=== PATIENT | male | born 1940 | race Caucasian/White ===

== ENCOUNTER 2019-10-15 10:16 | Inpatient (IN) | payer MEDICARE, OTHER ==
[~2019-10-15] VITALS: Ht 188 cm; Wt 117.5 kg
[~2019-10-15 10:16] MED LIST: UNOBMED
[2019-10-15] MEDS ORDERED: LISINOPRIL5 MG ORAL (10:27)
[2019-10-15] MEDS ORDERED: JANUVIA50 MG ORAL (10:27)
[2019-10-15] MEDS ORDERED: GLUCOTROL10 MG ORAL ×2 (10:27→10:41)
[2019-10-15] MEDS ORDERED: FUROSEMIDE40 MG ORAL (10:27)
[2019-10-15 10:30] VITALS: BP 111/63
[2019-10-15] MEDS ORDERED: SILTUSSIN DM C118 ML PO (10:41)
[2019-10-15] MEDS ORDERED: GABAPENTIN100 MG ORAL (10:41)
[2019-10-15] MEDS ORDERED: ALBUTEROL SULF8.5 G1 INH (10:41)
[2019-10-15] MEDS ORDERED: FLOMAX0.4 MG ORAL (10:41)
[2019-10-15] MEDS ORDERED: METOPROLOL TART50 MG ORAL (10:41)
[2019-10-15] MEDS ORDERED: PANTOPRAZOLE SO40 MG ORAL (10:41)
[2019-10-15] MEDS ORDERED: PRADAXA110 MG PO (10:41)
[2019-10-15] MEDS ORDERED: SILVER SULFADIA50 GM TP (10:41)
[2019-10-15] MEDS ORDERED: VIBRAMYCIN100 MG ORAL (10:46)
[2019-10-15] MEDS ORDERED: ATORVASTATIN CA10 MG ORAL (10:46)
[2019-10-15] MEDS ORDERED: FUROSEMIDE20 M1 ORAL (10:46)
[2019-10-15] MEDS ORDERED: DIGOXIN250 MCG ORAL (10:46)
[2019-10-15] MEDS ORDERED: AMIODARONE HCL200 MG ORAL (10:46)
[2019-10-15] MEDS ORDERED: ABILIFY10 MG ORAL (10:46)
[2019-10-15 11:13] LABS: BASOPHILS % (AUTO) 0.8 % (0.0-2.0); EOSINOPHILS % (AUTO) 3.7 % (0.0-3.0); HEMATOCRIT 35.8 % (42.0-52.0); HEMOGLOBIN 11.6 G/DL (14.2-18.0); LYMPHOCYTES % (AUTO) 11.8 % (20.0-45.0); MEAN CORPUSCULAR VOLUME 90 FL (80-99); MONOCYTES % (AUTO) 11.2 % (1.0-10.0); NEUTROPHILS % (AUTO) 72.5 % (45.0-75.0); PLATELET COUNT 122 K/UL (150-450); RED BLOOD COUNT 3.97 M/UL (4.70-6.10); RED CELL DISTRIBUTION WIDTH 14.1 % (11.6-14.8); WHITE BLOOD COUNT 10.2 K/UL (4.8-10.8)
--- NOTE | 2019-10-15 11:20 | Emergency Room Report ---
History of Present Illness General Chief Complaint: Generalized Weakness Source: Medical Record, EMS Present Illness HPI Patient presents from nursing facility with reports of general weakness patient himself appears lethargic Patient was noted from nursing facility to have multiple falls over the past 24 hours There was no reports of vomiting or diarrhea however there was question of possible cough History of present illness is limited as the patient himself was not able to provide appropriate input unknown regarding fever patient is from a boarding care /Nursing facility raising concern for covid-19 Allergies: Coded Allergies: No Known Allergies (Unverified , 08/25/12) COVID-19 Screening Contact w/high risk pt: No Recent Travel to affected area: No Experienced COVID-19 symptoms?: Yes COVID-19 symptoms experienced: Cough Patient History Limited by: medical condition Past Medical History: see triage record Reviewed Nursing Documentation: PMH: Agreed; PSxH: Agreed Nursing Documentation-PMH Hx Cardiac Problems: No - A fib Hx COPD: Yes Hx Cancer: No Hx Gastrointestinal Problems: No Hx Neurological Problems: No Review of Systems All Other Systems: negative except mentioned in HPI Physical Exam Vital Signs Date Time Temp Pulse Resp B/P (MAP) Pulse Ox O2 Delivery O2 Flow Rate FiO2 10/15/19 10:18 98.2 92 18 156/82 (106) 91 Room Air Sp02 EP Interpretation: reviewed, abnormal - Low interpretation General Appearance: mild distress - Appears lethargic Head: normocephalic, atraumatic Eyes: bilateral eye PERRL, bilateral eye EOMI ENT: EOM grossly intact, normal pharynx Neck: supple Respiratory: crackles - Lower lobes and appears mildly tachypneic Cardiovascular #1: irregularly irregular Gastrointestinal: non tender, soft Musculoskeletal: other - Patient does not move extremities to command he does move both upper extremities without focal deficit Neurologic: responsive - To physical stimuli however appears sluggish to respond Skin: other - Abrasions over the mid forehead edema bilaterally ecchymosis on both arms Lymphatic: no adenopathy Procedures Critical Care Time Critical Care Time 50 minutes for multiple re-evaluations critical presentation concerning for respiratory decompensation and possible not including any procedural time Medical Decision Making Diagnostic Impression: Primary Impression: A-fib Additional Impression: Suspected COVID-19 virus infection ER Course Patient is a fairly complex patient with multiple differential to consideration including but not limited to cardiac cardiopulmonary and vascular emergencies Patient has history of atrial fibrillation appears to be on multiple medications Heart rate is mildly bradycardic no obvious ST elevations are noted Patient's x-ray does show bilateral patchy markings as well In the current environment there is strong consideration for Covid-19 infectious process Patient is placed on oxygenation and admitted for further care Labs Test 10/15/19 10:48 10/15/19 13:50 10/15/19 15:20 10/15/19 20:50 White Blood Count 10.2 K/UL (4.8-10.8) Red Blood Count 3.97 M/UL (4.70-6.10) Hemoglobin 11.6 G/DL (14.2-18.0) Hematocrit 35.8 % (42.0-52.0) Mean Corpuscular Volume 90 FL (80-99) Mean Corpuscular Hemoglobin 29.2 PG (27.0-31.0) Mean Corpuscular Hemoglobin Concent 32.4 G/DL (32.0-36.0) Red Cell Distribution Width 14.1 % (11.6-14.8) Platelet Count 122 K/UL (150-450) Mean Platelet Volume 7.3 FL (6.5-10.1) Neutrophils (%) (Auto) 72.5 % (45.0-75.0) Lymphocytes (%) (Auto) 11.8 % (20.0-45.0) Monocytes (%) (Auto) 11.2 % (1.0-10.0) Eosinophils (%) (Auto) 3.7 % (0.0-3.0) Basophils (%) (Auto) 0.8 % (0.0-2.0) Sodium Level 149 MMOL/L (136-145) Potassium Level 4.6 MMOL/L (3.5-5.1) Chloride Level 113 MMOL/L (98-107) Carbon Dioxide Level 27 MMOL/L (21-32) Anion Gap 9 mmol/L (5-15) Blood Urea Nitrogen 53 mg/dL (7-18) Creatinine 2.3 MG/DL (0.55-1.30) Estimat Glomerular Filtration Rate 27.5 mL/min (>60) Glucose Level 74 MG/DL (74-106) Lactic Acid Level 1.20 mmol/L (0.4-2.0) Calcium Level 8.8 MG/DL (8.5-10.1) Total Bilirubin 0.5 MG/DL (0.2-1.0) Aspartate Amino Transf (AST/SGOT) 37 U/L (15-37) Alanine Aminotransferase (ALT/SGPT) 36 U/L (12-78) Alkaline Phosphatase 70 U/L (46-116) Total Creatine Kinase 339 U/L (26-308) Creatine Kinase MB 2.9 NG/ML (0.0-3.6) Creatine Kinase MB Relative Index 0.8 Troponin I 0.029 ng/mL (0.000-0.056) 0.029 ng/mL (0.000-0.056) Pro-B-Type Natriuretic Peptide 1544 pg/mL (0-125) Total Protein 6.9 G/DL (6.4-8.2) Albumin 3.1 G/DL (3.4-5.0) Globulin 3.8 g/dL Albumin/Globulin Ratio 0.8 (1.0-2.7) Lipase 82 U/L (73-393) Digoxin Level 3.2 NG/ML (0.5-2.0) Urine Color Pale yellow Urine Appearance Clear Urine pH 6 (4.5-8.0) Urine Specific [place] 1.010 (1.005-1.035) Urine Protein Negative (NEGATIVE) Urine Glucose (UA) Negative (NEGATIVE) Urine Ketones Negative (NEGATIVE) Urine Blood 4+ (NEGATIVE) Urine Nitrite Negative (NEGATIVE) Urine Bilirubin Negative (NEGATIVE) Urine Urobilinogen Normal MG/DL (0.0-1.0) Urine Leukocyte Esterase Negative (NEGATIVE) Urine RBC 10-15 /HPF (0 - 0) Urine WBC 0-2 /HPF (0 - 0) Urine Squamous Epithelial Cells Occasional /LPF Urine Bacteria None /HPF (NONE) Test 10/15/19 20:55 10/15/19 21:00 10/16/19 06:20 10/17/19 06:30 Sodium Level 154 MMOL/L (136-145) Potassium Level 4.7 MMOL/L (3.5-5.1) Chloride Level 115 MMOL/L (98-107) Carbon Dioxide Level 28 MMOL/L (21-32) Anion Gap 11 mmol/L (5-15) Blood Urea Nitrogen 51 mg/dL (7-18) Creatinine 2.3 MG/DL (0.55-1.30) Estimat Glomerular Filtration Rate 27.5 mL/min (>60) Glucose Level 26 MG/DL (74-106) Calcium Level 8.4 MG/DL (8.5-10.1) Triglycerides Level 79 MG/DL (30-150) Cholesterol Level 109 MG/DL (< 200) LDL Cholesterol 52 mg/dL (<100) HDL Cholesterol 44 MG/DL (40-60) Cholesterol/HDL Ratio 2.5 (3.3-4.4) Thyroid Stimulating Hormone (TSH) 0.772 uiU/mL (0.358-3.740) White Blood Count 9.3 K/UL (4.8-10.8) Red Blood Count 4.10 M/UL (4.70-6.10) Hemoglobin 11.9 G/DL (14.2-18.0) Hematocrit 39.7 % (42.0-52.0) Mean Corpuscular Volume 97 FL (80-99) Mean Corpuscular Hemoglobin 29.0 PG (27.0-31.0) Mean Corpuscular Hemoglobin Concent 29.9 G/DL (32.0-36.0) Red Cell Distribution Width 15.4 % (11.6-14.8) Platelet Count 119 K/UL (150-450) Mean Platelet Volume 9.0 FL (6.5-10.1) Neutrophils (%) (Auto) 63.8 % (45.0-75.0) Lymphocytes (%) (Auto) 18.6 % (20.0-45.0) Monocytes (%) (Auto) 12.2 % (1.0-10.0) Eosinophils (%) (Auto) 4.5 % (0.0-3.0) Basophils (%) (Auto) 0.9 % (0.0-2.0) Digoxin Level 3.4 NG/ML (0.5-2.0) EKG Diagnostic Results Rate: bradycardiac Rhythm: other ST Segments: other - Irregularly irregular nonspecific ST changes Rhythm Strip Diag. Results EP Interpretation: yes Rate: 50 Rhythm: no PVC's, no ectopy, other - A. fib bradycardic Chest X-Ray Diagnostic Results Chest X-Ray Diagnostic Results : Chest X-Ray Ordered: Yes # of Views/Limited/Complete: 1 View Indication: Shortness of Breath EP Interpretation: Yes Interpretation: no pneumothorax, other - Bilateral patchy markings small effusion bilaterally Impression: Other - Bilateral patchy markings consider infiltrate mild effusion Electronically Signed by: Stephen Olivera DO Last Vital Signs Date Time Temp Pulse Resp B/P (MAP) Pulse Ox O2 Delivery O2 Flow Rate FiO2 10/15/19 10:30 96.5 57 15 111/63 96 Room Air Status: improved Disposition: ADMITTED INPATIENT Condition: Serious Stephen Olivera DO October 15, 2019 11:20
[2019-10-15 11:23] LABS: ANION GAP 9 mmol/L (5-15); BLOOD UREA NITROGEN 53 mg/dL (7-18); CALCIUM 8.8 MG/DL (8.5-10.1); CARBON DIOXIDE 27 MMOL/L (21-32); CHLORIDE 113 MMOL/L (98-107); CREATININE 2.3 MG/DL (0.55-1.30); POTASSIUM 4.6 MMOL/L (3.5-5.1); SODIUM 149 MMOL/L (136-145)
[2019-10-15] MEDS ORDERED: cefTRIAXone 1 GM in NS 55 ML IVPB ONE (11:30)
[2019-10-15] MEDS ORDERED: Azithromycin 500 MG in NS 275 ML IV ONE (11:30)
[2019-10-15 11:35] LABS: ALANINE AMINOTRANSFERASE 36 U/L (12-78); ALBUMIN 3.1 G/DL (3.4-5.0); ALBUMIN/GLOBULIN RATIO 0.8 (1.0-2.7); ALKALINE PHOSPHATASE 70 U/L (46-116); ASPARTATE AMINO TRANSFERASE 37 U/L (15-37); BILIRUBIN,TOTAL 0.5 MG/DL (0.2-1.0); CKMB 2.9 NG/ML (0.0-3.6); CREATINE KINASE 339 U/L (26-308)
[2019-10-15 11:51] VITALS: BP 110/62
--- NOTE | 2019-10-15 13:53 | Diagnostic Imaging Report ---
Indication: Cough Technique: One view of the chest Comparison: 08/25/2012 Findings: There are bilateral diffuse interstitial opacities. There is central bronchial wall thickening. No focal airspace consolidation. There is some atelectasis at the right lung base. The heart size is upper limits normal. The aorta is tortuous ectatic and calcified Impression: Mild bilateral diffuse interstitial prominence. This is nonspecific, could indicate interstitial infiltrates versus edema versus chronic and possibly senescent changes. Correlate with clinical findings
[2019-10-15 14:09] VITALS: BP 115/50
--- NOTE | 2019-10-15 14:12 | Diagnostic Imaging Report ---
Indications: Altered mental status Technique: Spiral acquisitions obtained through the brain. Angled axial and coronal 5 x 5 mm slices were reconstructed. Total dose length product 1098 mGycm. CTDI vol(s) 53 mGy. Dose reduction achieved using automated exposure control Comparison: 08/27/2012 brain MRI Findings: There is age-related enlargement of the ventricles and extra axial CSF spaces. There is periventricular deep white matter low-attenuation, consistent with chronic microvascular ischemic change. 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 No acute intracranial hemorrhage or edema. No mass effect nor midline shift. Otherwise normal calles-white differentiation. Intact calvarium. The mastoids are clear. There is ethmoid sinus disease noted. Impression: Chronic and age-related changes Negative for acute intracranial bleed or mass effect The CT scanner at [facility] is accredited by the [employer] and the scans are performed using protocols designed to limit radiation exposure to as low as reasonably achievable to attain images of sufficient resolution adequate for diagnostic evaluation.
--- NOTE | 2019-10-15 14:52 | Emergency Room Report ---
Physical Exam Vital Signs Date Time Temp Pulse Resp B/P (MAP) Pulse Ox O2 Delivery O2 Flow Rate FiO2 10/15/19 10:18 98.2 92 18 156/82 (106) 91 Room Air Medical Decision Making ER Course Patient seen by prior attending and admitted for pneumonia. Patient is on digoxin for atrial fibrillation. EKG demonstrates atrial fibrillation with slow ventricular response and a pathognomonic downsloping of the ST segment. Digoxin level is 3.2. We will give a fluid bolus and continue to monitor. I will hold on Digibind at this time. Last Vital Signs Date Time Temp Pulse Resp B/P (MAP) Pulse Ox O2 Delivery O2 Flow Rate FiO2 10/15/19 14:09 96.5 56 16 115/50 96 Room Air Referrals: NOT CHOSEN RAVI/,REFERRING (PCP) Angie Conner M.D. October 15, 2019 14:52
[2019-10-15 16:18] LABS: APPEARANCE,URINE CLEAR; BILIRUBIN, URINE NEGATIVE (NEGATIVE); COLOR,URINE PALE YELLOW; GLUCOSE, URINE (UA) NEGATIVE (NEGATIVE); KETONES,URINE NEGATIVE (NEGATIVE); LEUKOCYTE ESTERASE ,URINE NEGATIVE (NEGATIVE); NITRITE,URINE NEGATIVE (NEGATIVE); PH,URINE 6 (4.5-8.0); PROTEIN,URINE NEGATIVE (NEGATIVE); UROBILINOGEN,URINE NORMAL MG/DL (0.0-1.0)
[2019-10-15] MEDS ORDERED: ELIQUIS2.5 MG PO (17:46)
[2019-10-15] MEDS ORDERED: ACETAMINOPHEN325 M1 ORAL (17:46)
[2019-10-15] MEDS ORDERED: MOM30 ML ORAL (17:46)
[2019-10-15] MEDS ORDERED: Milk of Magnesia 30ml Ud ORAL PRN (20:15)
[2019-10-15 20:25] VITALS: BP 121/62
--- NOTE | 2019-10-15 20:29 | History and Physical Report ---
DATE OF ADMISSION: 10/15/2019 CHIEF COMPLAINT AND REASON FOR HOSPITALIZATION: Patient is an 79-year-old man admitted with recurrent falls, weakness, cough, atrial fibrillation. HISTORY OF PRESENT ILLNESS: The patient is well known to me. He has a history of schizophrenia, chronic congestive heart failure, atrial fibrillation, anticoagulation with Pradaxa, and recent treatment for cellulitis of the leg. He over the past 2 days has 6 falls and is not functioning well at the assisted living facility. He usually walks independently. 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 There is a concern for possible head injury although there has been no head trauma. He is on anticoagulants. He is a poor historian. ALLERGIES: None known. HABITS: He is a heavy smoker lifelong. No heavy alcohol or drugs. SOCIAL HISTORY: He lives in assisted living facility. MEDICATIONS: Furosemide 40 mg daily, glipizide 10 mg daily, Januvia 50 mg daily, lisinopril 5 mg daily. Furosemide has been changed to 40 mg twice a day a few weeks ago. Metoprolol tartrate 50 mg every day, Protonix 40 mg daily, tamsulosin 0.4 mg at bedtime, gabapentin 100 mg b.i.d., glipizide 20 mg before breakfast and 10 mg in the afternoon, Pradaxa 75 mg b.i.d., albuterol inhaler p.r.n., Robitussin p.r.n., Silvadene ointment to the leg daily, doxycycline 100 mg b.i.d., amiodarone 200 mg daily, aripiprazole, which is Abilify 10 mg daily, atorvastatin 10 mg at bedtime, digoxin 0.25 mg daily. SURGERIES: None. SYSTEM REVIEW: HEAD, EYES, EARS, NOSE, AND THROAT: Vision and hearing is good. ENDOCRINE: Diabetes adult onset. He is not checking his sugars. No thyroid disease. PULMONARY: History of COPD and intermittent bronchospasm. CARDIAC: History of atrial fibrillation. History of CHF with low ejection fraction in the past, which improved on subsequent echo. GASTROINTESTINAL: No nausea, vomiting, or abdominal pain. GENITOURINARY: He has intermittent incontinence and neurogenic bladder and BPH. NEUROLOGIC: No prior history of CVA or seizures. 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 PHYSICAL EXAMINATION: GENERAL: The patient is an alert man, lying in bed, seen in the emergency room. VITAL SIGNS: Blood pressure 96.5, pulse 54, respirations 16, blood pressure 110/62, pulse ox 96. HEAD, EYES, EARS, NOSE, AND THROAT: Sclerae are nonicteric. Ocular motions intact in all directions. Oral mucosa slightly dry. NECK: No adenopathy. LUNGS: Clear. Distant breath sounds. HEART: Rhythm is atrial fibrillation. I hear no murmur. ABDOMEN: Obese and soft without organomegaly or masses. EXTREMITIES: Trace to 1+ edema. There is a dressing on his leg from treatment of his cellulitis and this will be examined at a later time. NEUROLOGIC: He is alert and responsive. Ocular motions intact in all directions. Smile symmetric. He moves all extremities. IMAGING: Pending. LABORATORY DATA: So far, white count 10.2, hemoglobin 11.6. Sodium 149, potassium 4.6, BUN 53, creatinine 2.3, glucose 74. Total CK 339. Troponin 0.029. BNP 1544. Albumin 3.1. Further data pending. IMPRESSION: 1. Recurrent falls, likely a combination of parkinsonian affective medications, possible orthostatic hypotension, possible new [employer] disease. CT pending. 2. Atrial fibrillation. an EKG. Has slow ventricular rate and this may contribute to falls and need to be monitored for bradyarrhythmia, so hold digoxin at this time and get a cardiology consultation. 3. Chronic congestive heart failure. Prior low ejection fraction. Echo pending. 4. Adult-onset diabetes. 5. Schizophrenia. 6. Neurogenic bladder. 7. COPD. PLAN: Further imaging and studies are pending. We will put the patient on telemetry. Monitor his rhythm. Watch closely in view of his comorbidities. Noel Weldon M.D. DR: MERT JOB#: [id number] CC:
[2019-10-15 21:00] VITALS: BP 138/65
[2019-10-15] MEDS: Eliquis 2.5mg tablet ORAL SCH (21:00)
[2019-10-15] MEDS: NovoLOG Insulin Flexpen SUBQ SCH (21:00)
[2019-10-15] MEDS: Albuterol 90mcg Inhaler 8gm INH SCH (21:00)
[2019-10-15] MEDS: Doxycycline Monohydrate 100mg ORAL SCH (21:13)
[2019-10-15 21:14] LABS: BASOPHILS % (AUTO) 0.9 % (0.0-2.0); EOSINOPHILS % (AUTO) 4.5 % (0.0-3.0); HEMATOCRIT 39.7 % (42.0-52.0); HEMOGLOBIN 11.9 G/DL (14.2-18.0); LYMPHOCYTES % (AUTO) 18.6 % (20.0-45.0); MEAN CORPUSCULAR VOLUME 97 FL (80-99); MONOCYTES % (AUTO) 12.2 % (1.0-10.0); NEUTROPHILS % (AUTO) 63.8 % (45.0-75.0); PLATELET COUNT 119 K/UL (150-450); RED CELL DISTRIBUTION WIDTH 15.4 % (11.6-14.8); WHITE BLOOD COUNT 9.3 K/UL (4.8-10.8)
[2019-10-15 21:36] LABS: ANION GAP 11 mmol/L (5-15); BLOOD UREA NITROGEN 51 mg/dL (7-18); CALCIUM 8.4 MG/DL (8.5-10.1); CARBON DIOXIDE 28 MMOL/L (21-32); CHLORIDE 115 MMOL/L (98-107); CHOLESTEROL 109 MG/DL (< 200); CREATININE 2.3 MG/DL (0.55-1.30); HDL CHOLESTEROL 44 MG/DL (40-60); POTASSIUM 4.7 MMOL/L (3.5-5.1); SODIUM 154 MMOL/L (136-145); TRIGLYCERIDES 79 MG/DL (30-150)
[2019-10-16] VITALS: BP 121/65
[2019-10-16] MEDS: Albuterol 90mcg Inhaler 8gm INH SCH ×6 (00:17→21:00)
--- NOTE | 2019-10-16 01:00 | Consultation ---
DATE OF CONSULTATION: 10/15/2019 PULMONARY CONSULTATION CONSULTING PHYSICIAN: Corey Fay MD REASON FOR CONSULTATION: Respiratory insufficiency and COPD. HISTORY OF PRESENT ILLNESS: This is an 79-year-old male who presents with worsening shortness of breath, weakness, lethargy. The patient with multiple falls over the past 24 hours. The patient also has underlying history of COPD with some respiratory embarrassment. The patient's [facility] was concerned about possible COVID as well and transferred the patient for further evaluation. The patient is a fair historian, difficult to fully assess at this time. Care discussed with the ER physician. The patient's chart was reviewed. The patient is awaiting a bed. He is currently stable, on no oxygen at present, appears to be minimally congested. PAST MEDICAL HISTORY: Notable for atrial fibrillation and COPD. MEDICATIONS: Reviewed. ALLERGIES: Reviewed. SOCIAL HISTORY: Resides at a [facility]. FAMILY HISTORY: Not available. PHYSICAL EXAMINATION: GENERAL: Advanced age. The patient in no significant distress. VITAL SIGNS: Temperature noted, respirations 16, blood pressure 115/50, sats 96% on room air. HEENT: Negative. NECK: Supple. LUNGS: Moderate breath sounds. Occasional rhonchi. CARDIAC: S1, S2. Regular rate and rhythm without murmurs, rubs or gallops. ABDOMEN: Soft, nontender, nondistended. EXTREMITIES: No cyanosis, clubbing or edema. NEUROLOGIC: Grossly nonfocal. LABORATORY DATA: Reviewed. CBC notable for hemoglobin 11.6. Chemistry, sodium 149, BUN 53, creatinine 2.3, albumin is 3.1. Patient's digoxin appears to be toxic at this time. The patient did have a chest x-ray, which showed some diffuse interstitial changes, nonspecific. IMPRESSION: Possible COVID-related pneumonia, COPD, shortness of breath, noted anemia, digoxin toxicity, toxic metabolic encephalopathy. RECOMMENDATIONS: Supportive care. Resume medications from the [facility]. Monitor for falls and monitor neurological status. Isolation as it is. Monitor x-ray. Follow up natriuretic peptide and continue diuresis as needed. Patient with elevated sodium, may need free water and will follow blood pressure support, cardiac support, and oxygen support. DVT prophylaxis and follow clinically for any changes. Hold digoxin for now. Avoid nebulized therapy if possible with possible COVID. Corey Fay M.D. DR: José Miguel JOB#: [id number] CC: ERON
[2019-10-16 04:00] VITALS: BP 131/80
[2019-10-16] MEDS: sitaGLIPtin 50mg tab ORAL SCH (06:04)
[2019-10-16] MEDS: GlipiZIDE 5mg tab ORAL SCH ×2 (06:05→16:30)
[2019-10-16] MEDS: NovoLOG Insulin Flexpen SUBQ SCH ×4 (06:05→21:00)
[2019-10-16 08:00] VITALS: BP 119/57
[2019-10-16] MEDS ORDERED: Eliquis 2.5mg tablet ORAL SCH (09:00)
[2019-10-16] MEDS ORDERED: Metoprolol Tartrate 50mg tab ORAL SCH (09:00)
[2019-10-16] MEDS: Lisinopril 2.5mg tab ORAL SCH (09:01)
[2019-10-16] MEDS: Doxycycline Monohydrate 100mg ORAL SCH ×2 (09:02→20:53)
[2019-10-16] MEDS: Eliquis 2.5mg tablet ORAL SCH ×2 (09:02→20:53)
[2019-10-16] MEDS: Tamsulosin 0.4mg cap ORAL SCH (09:02)
[2019-10-16] MEDS: Milk of Magnesia 30ml Ud ORAL SCH (09:02)
--- NOTE | 2019-10-16 09:03 | Pulmonology Progress Note ---
Subjective Allergies: Coded Allergies: No Known Allergies (Unverified , 08/25/12) Subjective care noted currently not using oxygen respiratory with some congestion Objective Last 24 Hour Vital Signs Date Time Temp Pulse Resp B/P (MAP) Pulse Ox O2 Delivery O2 Flow Rate FiO2 10/16/19 08:00 98.2 83 18 119/57 (77) 96 10/16/19 05:24 47 10/16/19 04:00 97.9 91 22 131/80 (97) 98 10/16/19 03:28 Room Air 1.5 10/16/19 00:39 57 10/16/19 00:00 97.5 57 21 121/65 (83) 98 10/15/19 21:00 97.2 66 22 138/65 (89) 96 10/15/19 20:25 98.4 52 16 121/62 96 Nasal Cannula 1.5 10/15/19 20:25 97.5 54 16 121/62 96 Nasal Cannula 1.5 10/15/19 14:09 96.5 56 16 115/50 96 Room Air 10/15/19 11:51 96.5 54 16 110/62 96 Room Air 10/15/19 10:30 96.5 57 15 111/63 96 Room Air 10/15/19 10:30 114 22 Room Air 10/15/19 10:18 98.2 92 18 156/82 (106) 91 Room Air Intake and Output 10/15/19 10/16/19 19:00 07:00 Intake Total 500 ml Balance 500 ml Intake IV Total 500 ml # Voids 2 # Bowel Movements 1 Objective GENERAL: Advanced age. NAD HEENT: Negative. NECK: Supple. LUNGS: Moderate breath sounds. Occasional rhonchi. no wheeze CARDIAC: S1, S2. Regular rate and rhythm without murmurs, rubs or gallops. ABDOMEN: Soft, nontender, nondistended. EXTREMITIES: No cyanosis, clubbing or edema. NEUROLOGIC: Grossly nonfocal. reviewed and edited Laboratory Tests 10/15/19 10:48: White Blood Count 10.2, Red Blood Count 3.97L, Hemoglobin 11.6L, Hematocrit 35.8L, Mean Corpuscular Volume 90, Mean Corpuscular Hemoglobin 29.2, Mean Corpuscular Hemoglobin Concent 32.4, Red Cell Distribution Width 14.1, Platelet Count 122L, Mean Platelet Volume 7.3, Neutrophils (%) (Auto) 72.5, Lymphocytes ( %) (Auto) 11.8L, Monocytes (%) (Auto) 11.2H, Eosinophils (%) (Auto) 3.7H, Basophils (%) (Auto) 0.8, Sodium Level 149H, Potassium Level 4.6, Chloride Level 113H, Carbon Dioxide Level 27, Anion Gap 9, Blood Urea Nitrogen 53H, Creatinine 2.3H, Estimat Glomerular Filtration Rate 27.5, Glucose Level 74, Lactic Acid Level 1.20, Calcium Level 8.8, Total Bilirubin 0.5, Aspartate Amino Transf (AST/SGOT) 37, Alanine Aminotransferase (ALT/SGPT) 36, Alkaline Phosphatase 70, Total Creatine Kinase 339H, Creatine Kinase MB 2.9, Creatine Kinase MB Relative Index 0.8, Troponin I 0.029, Pro-B-Type Natriuretic Peptide 1544H, Total Protein 6.9, Albumin 3.1L, Globulin 3.8, Albumin/Globulin Ratio 0.8L, Lipase 82 10/15/19 13:50: Digoxin Level 3.2*H 10/15/19 15:20: Urine Color Pale yellow, Urine Appearance Clear, Urine pH 6, Urine Specific [place] 1.010, Urine Protein Negative, Urine Glucose (UA) Negative, Urine Ketones Negative, Urine Blood 4+H, Urine Nitrite Negative, Urine Bilirubin Negative, Urine Urobilinogen Normal, Urine Leukocyte Esterase Negative, Urine RBC 10-15H, Urine WBC 0-2, Urine Squamous Epithelial Cells Occasional, Urine Bacteria None 10/15/19 20:50: Troponin I 0.029 10/15/19 20:55: Sodium Level 154H, Potassium Level 4.7, Chloride Level 115H, Carbon Dioxide Level 28, Anion Gap 11, Blood Urea Nitrogen 51H, Creatinine 2.3H, Estimat Glomerular Filtration Rate 27.5, Glucose Level 26*L, Calcium Level 8.4L, Triglycerides Level 79, Cholesterol Level 109, LDL Cholesterol 52, HDL Cholesterol 44, Cholesterol/HDL Ratio 2.5L, Thyroid Stimulating Hormone (TSH) 0.772 10/15/19 21:00: White Blood Count 9.3, Red Blood Count 4.10L, Hemoglobin 11.9L, Hematocrit 39.7L , Mean Corpuscular Volume 97, Mean Corpuscular Hemoglobin 29.0, Mean Corpuscular Hemoglobin Concent 29.9L, Red Cell Distribution Width 15.4H, Platelet Count 119L, Mean Platelet Volume 9.0, Neutrophils (%) (Auto) 63.8, Lymphocytes (%) (Auto) 18.6L, Monocytes (%) (Auto) 12.2H, Eosinophils (%) (Auto ) 4.5H, Basophils (%) (Auto) 0.9 10/16/19 06:20: Digoxin Level [Pending] Current Medications Medications (Trade) Dose Ordered Sig/Bethany Route PRN Reason Start Time Stop Time Status Last Admin Dose Admin Acetaminophen (Tylenol) 650 mg Q4H PRN ORAL Mild Pain (Pain Scale 1-3) 10/15/19 20:15 11/14/19 20:14 Acetaminophen (Tylenol) 650 mg Q4H PRN ORAL Temp >100.5 10/15/19 20:30 11/14/19 20:29 Albuterol Sulfate (Proventil MDI) 2 puff Q4H INH 10/15/19 21:00 01/13/20 20:59 Apixaban (Eliquis) 2.5 mg Q12HR ORAL 10/15/19 21:00 01/13/20 20:59 Aripiprazole (Abilify) 10 mg DAILY ORAL 10/15/19 21:00 11/29/19 20:59 Atorvastatin Calcium (Lipitor) 10 mg BEDTIME ORAL 10/15/19 21:00 01/13/20 20:59 10/15/19 21:12 Dextrose (Dextrose 50%) 25 ml Q30M PRN IV Hypoglycemia 10/15/19 20:30 01/13/20 20:29 Dextrose (Dextrose 50%) 50 ml Q30M PRN IV Hypoglycemia 10/15/19 20:30 01/13/20 20:29 Doxycycline Monohydrate (Doxycycline Monohydrate) 100 mg EVERY 12 HOURS ORAL 10/15/19 21:00 10/22/19 20:59 10/15/19 21:13 Furosemide (Lasix) 40 mg DAILY ORAL 10/16/19 09:00 11/15/19 08:59 Gabapentin (Neurontin) 100 mg TWICE A DAY ORAL 10/16/19 09:00 11/15/19 08:59 Glipizide (Glucotrol) 10 mg BIAC ORAL 10/16/19 06:30 11/15/19 06:29 Insulin Aspart (NovoLOG) BEFORE MEALS AND HS SUBQ 10/15/19 21:00 01/13/20 20:59 Lisinopril (ZestriL) 5 mg DAILY ORAL 10/16/19 09:00 11/15/19 08:59 Magnesium Hydroxide (Mom) 30 ml DAILY ORAL 10/16/19 09:00 11/15/19 08:59 Magnesium Hydroxide (Mom) 30 ml HSPRN PRN ORAL Constipation 10/15/19 20:15 11/14/19 20:14 Metoprolol Tartrate (Lopressor) 50 mg DAILY ORAL 10/16/19 09:00 01/14/20 08:59 Pantoprazole (Protonix) 40 mg ACBREAKFAST ORAL 10/16/19 06:30 11/15/19 06:29 10/16/19 06:06 Silver Sulfadiazine (Silvadene Cream 25gm) 1 applic TWICE A DAY TOPIC 10/16/19 09:00 01/14/20 08:59 Sitagliptin Phosphate (Januvia) 50 mg ACBREAKFAST ORAL 10/16/19 06:30 11/15/19 06:29 Tamsulosin HCl (Flomax) 0.4 mg DAILY ORAL 10/16/19 09:00 11/15/19 08:59 Assessment/Plan Assessment/Plan IMPRESSION: Possible COVID-related pneumonia, COPD, shortness of breath, noted anemia, digoxin toxicity, toxic metabolic encephalopathy. PLAN care noted respiratory care oxygen management off load encourage cough monitor imaging impression, plan, and exam edited and reviewed in detail care discussed with Corey Sanchez MD October 16, 2019 09:03
[2019-10-16 11:46] VITALS: BP 113/60
--- NOTE | 2019-10-16 12:13 | General Progress Note ---
Assessment/Plan Problem List: (1) Hypernatremia ICD Codes: E87.0 - Hyperosmolality and hypernatremia SNOMED: 856903238 (2) CKD (chronic kidney disease) stage 3, GFR 30-59 ml/min ICD Codes: N18.3 - Chronic kidney disease, stage 3 (moderate) SNOMED: 248698460 (3) Dehydration ICD Codes: E86.0 - Dehydration SNOMED: 03795212 (4) Jackeline-tachy syndrome ICD Codes: I49.5 - Sick sinus syndrome SNOMED: 33048868 (5) Digoxin toxicity ICD Codes: T46.0X1A - Poisoning by cardiac-stimulant glycosides and drugs of similar action, accidental (unintentional), initial encounter SNOMED: 79776269 (6) Dehydration ICD Codes: E86.0 - Dehydration SNOMED: 37727549 (7) Weakness ICD Codes: R53.1 - Weakness SNOMED: 14072167 (8) A-fib ICD Codes: I48.91 - Unspecified atrial fibrillation SNOMED: 98043621 (9) Elevated troponin ICD Codes: R79.89 - Other specified abnormal findings of blood chemistry SNOMED: 290741358, 193510478, 556478359 (10) Parkinsonian syndrome ICD Codes: G20 - Parkinson's disease SNOMED: 28665385 (11) Schizophrenia ICD Codes: F20.9 - Schizophrenia, unspecified SNOMED: 68703248 (12) Falls frequently ICD Codes: R29.6 - Repeated falls SNOMED: 785921424 (13) Cellulitis and abscess of lower extremity ICD Codes: L03.119 - Cellulitis of unspecified part of limb; L02.419 - Cutaneous abscess of limb, unspecified SNOMED: 114356351 Assessment/Plan: empiric atb, hold dig and amiodoronee, tel, wound care Subjective Constitutional: Reports: weakness HEENT: Reports: no symptoms Cardiovascular: Reports: other - jackeline Respiratory: Reports: cough Gastrointestinal/Abdominal: Reports: no symptoms Genitourinary: Reports: incontinence Neurologic/Psychiatric: Reports: weakness Endocrine: Reports: no symptoms Hematologic/Lymphatic: Reports: no symptoms Allergies: Coded Allergies: No Known Allergies (Unverified , 08/25/12) Objective Last 24 Hour Vital Signs Date Time Temp Pulse Resp B/P (MAP) Pulse Ox O2 Delivery O2 Flow Rate FiO2 5/7/20 11:46 97.6 67 19 113/60 (77) 96 10/16/19 09:02 83 119/57 10/16/19 09:01 119/57 10/16/19 09:00 Room Air 10/16/19 08:56 68 10/16/19 08:00 98.2 83 18 119/57 (77) 96 10/16/19 05:24 47 10/16/19 04:00 97.9 91 22 131/80 (97) 98 10/16/19 03:28 Room Air 1.5 10/16/19 00:39 57 10/16/19 00:00 97.5 57 21 121/65 (83) 98 10/15/19 21:00 97.2 66 22 138/65 (89) 96 10/15/19 20:25 98.4 52 16 121/62 96 Nasal Cannula 1.5 10/15/19 20:25 97.5 54 16 121/62 96 Nasal Cannula 1.5 10/15/19 14:09 96.5 56 16 115/50 96 Room Air Intake and Output 10/15/19 10/16/19 19:00 07:00 Intake Total 500 ml Balance 500 ml Intake IV Total 500 ml # Voids 2 # Bowel Movements 1 Laboratory Tests 10/15/19 13:50: Digoxin Level 3.2*H 10/15/19 15:20: Urine Color Pale yellow, Urine Appearance Clear, Urine pH 6, Urine Specific [place] 1.010, Urine Protein Negative, Urine Glucose (UA) Negative, Urine Ketones Negative, Urine Blood 4+H, Urine Nitrite Negative, Urine Bilirubin Negative, Urine Urobilinogen Normal, Urine Leukocyte Esterase Negative, Urine RBC 10-15H, Urine WBC 0-2, Urine Squamous Epithelial Cells Occasional, Urine Bacteria None 10/15/19 20:50: Troponin I 0.029 10/15/19 20:55: Sodium Level 154H, Potassium Level 4.7, Chloride Level 115H, Carbon Dioxide Level 28, Anion Gap 11, Blood Urea Nitrogen 51H, Creatinine 2.3H, Estimat Glomerular Filtration Rate 27.5, Glucose Level 26*L, Calcium Level 8.4L, Triglycerides Level 79, Cholesterol Level 109, LDL Cholesterol 52, HDL Cholesterol 44, Cholesterol/HDL Ratio 2.5L, Thyroid Stimulating Hormone (TSH) 0.772 10/15/19 21:00: White Blood Count 9.3, Red Blood Count 4.10L, Hemoglobin 11.9L, Hematocrit 39.7L , Mean Corpuscular Volume 97, Mean Corpuscular Hemoglobin 29.0, Mean Corpuscular Hemoglobin Concent 29.9L, Red Cell Distribution Width 15.4H, Platelet Count 119L, Mean Platelet Volume 9.0, Neutrophils (%) (Auto) 63.8, Lymphocytes (%) (Auto) 18.6L, Monocytes (%) (Auto) 12.2H, Eosinophils (%) (Auto ) 4.5H, Basophils (%) (Auto) 0.9 10/16/19 06:20: Digoxin Level 3.4*H Height (Feet): 6 Height (Inches): 2.00 Weight (Pounds): 210 General Appearance: no apparent distress, alert EENT: normal ENT inspection Neck: normal alignment Cardiovascular: regularly irregular Respiratory/Chest: rhonchi - bilaterally Abdomen: non tender Edema: mild edema Neurologic: alert, motor weakness Noel Weldon MD October 16, 2019 12:13
[2019-10-16] MEDS ORDERED: Vancomycin 1.5gm/NS Premix IVPB ONE (14:00)
[2019-10-16 16:00] VITALS: BP 124/70
--- NOTE | 2019-10-16 17:59 | Consultation ---
History of Present Illness General Date patient seen: October 16, 2019 Reason for Hospitalization: Generalized Weakness Present Illness HPI This is a very pleasant 79 year old male with history of schizophrenia, chronic congestive heart failure, atrial fibrillation, anticoagulation with Pradaxa, and recent treatment for cellulitis of the leg has had multiple falls recently at care facility presented to [facility] ED for evaluation and admitted for care and management. Bilateral lower extremity edema with open wounds. surgery called to evaluate and assist with care and management. patient seen, chart reviewed, patient examined. Allergies: Coded Allergies: No Known Allergies (Unverified , 08/25/12) COVID-19 Screening Contact w/high risk pt: No Recent Travel to affected area: No Experienced COVID-19 symptoms?: Yes COVID-19 symptoms experienced: Cough Medication History Scheduled Albuterol Sulfate* (Albuterol Sulfate Hfa*), 2 PUFF INH Q4H, (Reported) Amiodarone Hcl* (Cordarone*), 200 MG ORAL DAILY, (Reported) Apixaban (Eliquis), 2.5 MG PO BID, (Reported) Aripiprazole* (Abilify*), 10 MG ORAL DAILY, (Reported) Atorvastatin Calcium* (Lipitor*), 10 MG ORAL BEDTIME, (Reported) Dabigatran Etexilate Mesylate (Pradaxa), 75 MG PO TWICE A DAY, (Reported) Digoxin* (Digoxin*), 1 TAB ORAL DAILY, (Reported) Doxycycline Hyclate* (Vibramycin*), 100 MG ORAL EVERY 12 HOURS, (Reported) Furosemide* (Lasix*), 40 MG ORAL TWICE A DAY, (Reported) Glipizide* (Glucotrol*), 10 MG ORAL HS, (Reported) Glipizide* (Glucotrol*), 20 MG ORAL ACBREAKFAST, (Reported) Lisinopril (Lisinopril*), 5 MG ORAL DAILY, (Reported) Magnesium Hydroxide (Milk of Magnesia), 30 ML ORAL DAILY, (Reported) Metoprolol Tartrate* (Metoprolol Tartrate*), 50 MG ORAL DAILY, (Reported) Pantoprazole* (Pantoprazole*), 40 MG ORAL DAILY, (Reported) Silver Sulfadiazine (Silver Sulfadiazine), 50 GM TP TWICE A DAY, (Reported) Sitagliptin (Januvia), 50 MG ORAL DAILY, (Reported) Tamsulosin HCl (Flomax), 0.4 MG ORAL DAILY, (Reported) Scheduled PRN Acetaminophen* (Acetaminophen 325MG Tablet*), 650 MG ORAL Q4H PRN for , ( Reported) Guaifenesin/Dextromethorphan (Siltussin Dm Cough Syrup), 10 ML PO Q4HR PRN for For Cough, (Reported) Discontinued Medications Amiodarone Hcl* (Cordarone*), 200 MG ORAL DAILY, (Reported) Discontinued Reason: MD discontinued med Digoxin* (Digoxin*), 0.25 MG ORAL DAILY, (Reported) Discontinued Reason: MD discontinued med Furosemide* (Lasix*), 40 MG ORAL DAILY, (Reported) Discontinued Reason: Therapy completed Gabapentin* (Gabapentin*), 100 MG ORAL TWICE A DAY, (Reported) Discontinued Reason: Therapy completed Unable to Obtain Medications (Unable To Obtain Meds), (Reported) Discontinued Reason: Therapy completed Patient History History Provided By: Patient, Medical Record, PMD Healthcare decision maker Resuscitation status Advanced Directive on File Past Medical/Surgical History Past Medical/Surgical History: (1) Dehydration (2) Dehydration (3) Hypernatremia (4) Edin-tachy syndrome (5) Weakness (6) A-fib (7) Digoxin toxicity (8) CKD (chronic kidney disease) stage 3, GFR 30-59 ml/min (9) Elevated troponin (10) Parkinsonian syndrome (11) Schizophrenia (12) Falls frequently (13) Cellulitis and abscess of lower extremity Review of Systems Review of Symptoms General ROS: no weight loss or fever Psychological ROS: no depression or mood changes, no memory loss Ophthalmic ROS: no visual changes or eye irritation ENT ROS: no nasal congestion, hearing loss, dizziness Allergy and Immunology ROS: no allergic symptoms or urticaria Hematological and Lymphatic ROS: no swollen glands, unusual bleeding or bruising Endocrine ROS: no polyuria, polydipsia, weight changes, temperature intolerance Respiratory ROS: no cough, shortness of breath, or wheezing Cardiovascular ROS: no chest pain or dyspnea on exertion Gastrointestinal ROS: denies abdominal pain, bright red blood in stool. Musculoskeletal ROS: no myalgias or arthralgias Neurological ROS: no TIA or stroke symptoms Dermatological ROS: no new or changing skin lesions, rashes or pruritis Physical Exam Physical Exam General appearance: alert, cooperative, no distress, appears stated age Head: Normocephalic, without obvious abnormality, atraumatic Eyes: conjunctivae/corneas clear. PERRL, EOM's intact. Fundi benign Throat: Lips, mucosa, and tongue normal. Teeth and gums normal Neck: supple, symmetrical, trachea midline, no adenopathy, thyroid: not enlarged, symmetric, no tenderness/mass/nodules, no carotid bruit and no JVD Lungs: clear to auscultation bilaterally Heart: regular rate and rhythm, S1, S2 normal, no murmur, click, rub or gallop Abdomen: soft, non-tender. Bowel sounds normal. No masses, no organomegaly Extremities: extremities + edema Pulses: 2+ and symmetric Skin: Skin see below Neurologic: Grossly normal Last 24 Hour Vital Signs Date Time Temp Pulse Resp B/P (MAP) Pulse Ox O2 Delivery O2 Flow Rate FiO2 10/16/19 16:00 96.7 80 20 124/70 (88) 98 10/16/19 12:42 55 10/16/19 11:46 97.6 67 19 113/60 (77) 96 10/16/19 09:02 83 119/57 10/16/19 09:01 119/57 10/16/19 09:00 Room Air 10/16/19 08:56 68 10/16/19 08:00 98.2 83 18 119/57 (77) 96 10/16/19 05:24 47 10/16/19 04:00 97.9 91 22 131/80 (97) 98 10/16/19 03:28 Room Air 1.5 10/16/19 00:39 57 10/16/19 00:00 97.5 57 21 121/65 (83) 98 10/15/19 21:00 97.2 66 22 138/65 (89) 96 10/15/19 20:25 98.4 52 16 121/62 96 Nasal Cannula 1.5 10/15/19 20:25 97.5 54 16 121/62 96 Nasal Cannula 1.5 Intake and Output 10/15/19 10/16/19 19:00 07:00 Intake Total 500 ml Balance 500 ml Intake IV Total 500 ml # Voids 2 # Bowel Movements 1 Laboratory Tests Test 10/15/19 20:50 10/15/19 20:55 10/15/19 21:00 10/16/19 06:20 Troponin I 0.029 ng/mL (0.000-0.056) Sodium Level 154 MMOL/L (136-145) H Potassium Level 4.7 MMOL/L (3.5-5.1) Chloride Level 115 MMOL/L (98-107) H Carbon Dioxide Level 28 MMOL/L (21-32) Anion Gap 11 mmol/L (5-15) Blood Urea Nitrogen 51 mg/dL (7-18) H Creatinine 2.3 MG/DL (0.55-1.30) H Estimat Glomerular Filtration Rate 27.5 mL/min (>60) Glucose Level 26 MG/DL (74-106) *L Calcium Level 8.4 MG/DL (8.5-10.1) L Triglycerides Level 79 MG/DL (30-150) Cholesterol Level 109 MG/DL (< 200) LDL Cholesterol 52 mg/dL (<100) HDL Cholesterol 44 MG/DL (40-60) Cholesterol/HDL Ratio 2.5 (3.3-4.4) L Thyroid Stimulating Hormone (TSH) 0.772 uiU/mL (0.358-3.740) White Blood Count 9.3 K/UL (4.8-10.8) Red Blood Count 4.10 M/UL (4.70-6.10) L Hemoglobin 11.9 G/DL (14.2-18.0) L Hematocrit 39.7 % (42.0-52.0) L Mean Corpuscular Volume 97 FL (80-99) Mean Corpuscular Hemoglobin 29.0 PG (27.0-31.0) Mean Corpuscular Hemoglobin Concent 29.9 G/DL (32.0-36.0) L Red Cell Distribution Width 15.4 % (11.6-14.8) H Platelet Count 119 K/UL (150-450) L Mean Platelet Volume 9.0 FL (6.5-10.1) Neutrophils (%) (Auto) 63.8 % (45.0-75.0) Lymphocytes (%) (Auto) 18.6 % (20.0-45.0) L Monocytes (%) (Auto) 12.2 % (1.0-10.0) H Eosinophils (%) (Auto) 4.5 % (0.0-3.0) H Basophils (%) (Auto) 0.9 % (0.0-2.0) Digoxin Level 3.4 NG/ML (0.5-2.0) *H Height (Feet): 6 Height (Inches): 2.00 Weight (Pounds): 210 Medications Current Medications Medications (Trade) Dose Ordered Sig/Bethany Route PRN Reason Start Time Stop Time Status Last Admin Dose Admin Acetaminophen (Tylenol) 650 mg Q4H PRN ORAL Mild Pain (Pain Scale 1-3) 10/15/19 20:15 11/14/19 20:14 Acetaminophen (Tylenol) 650 mg Q4H PRN ORAL Temp >100.5 10/15/19 20:30 11/14/19 20:29 Albuterol Sulfate (Proventil MDI) 2 puff Q4H INH 10/15/19 21:00 01/13/20 20:59 10/16/19 15:17 Apixaban (Eliquis) 2.5 mg Q12HR ORAL 10/15/19 21:00 01/13/20 20:59 10/16/19 09:02 Aripiprazole (Abilify) 10 mg DAILY ORAL 10/15/19 21:00 11/29/19 20:59 10/16/19 09:02 Atorvastatin Calcium (Lipitor) 10 mg BEDTIME ORAL 10/15/19 21:00 01/13/20 20:59 10/15/19 21:12 Dextrose 1,000 ml @ 100 mls/hr Q10H IV 10/16/19 12:15 11/15/19 12:14 10/16/19 12:46 Dextrose (Dextrose 50%) 25 ml Q30M PRN IV Hypoglycemia 10/15/19 20:30 01/13/20 20:29 Dextrose (Dextrose 50%) 50 ml Q30M PRN IV Hypoglycemia 10/15/19 20:30 01/13/20 20:29 Doxycycline Monohydrate (Doxycycline Monohydrate) 100 mg EVERY 12 HOURS ORAL 10/15/19 21:00 10/22/19 20:59 10/16/19 09:02 Gabapentin (Neurontin) 100 mg TWICE A DAY ORAL 10/16/19 09:00 11/15/19 08:59 10/16/19 09:02 Glipizide (Glucotrol) 10 mg BIAC ORAL 10/16/19 06:30 6/6/20 06:29 Insulin Aspart (NovoLOG) BEFORE MEALS AND HS SUBQ 10/15/19 21:00 01/13/20 20:59 Lisinopril (ZestriL) 5 mg DAILY ORAL 10/16/19 09:00 11/15/19 08:59 10/16/19 09:01 Magnesium Hydroxide (Mom) 30 ml DAILY ORAL 10/16/19 09:00 11/15/19 08:59 10/16/19 09:02 Magnesium Hydroxide (Mom) 30 ml HSPRN PRN ORAL Constipation 10/15/19 20:15 11/14/19 20:14 Pantoprazole (Protonix) 40 mg ACBREAKFAST ORAL 10/16/19 06:30 11/15/19 06:29 10/16/19 06:06 Silver Sulfadiazine (Silvadene Cream 25gm) 1 applic TWICE A DAY TOPIC 10/16/19 09:00 01/14/20 08:59 10/16/19 09:01 Sitagliptin Phosphate (Januvia) 50 mg ACBREAKFAST ORAL 10/16/19 06:30 11/15/19 06:29 Tamsulosin HCl (Flomax) 0.4 mg DAILY ORAL 10/16/19 09:00 11/15/19 08:59 10/16/19 09:02 Vancomycin HCl (Vanco rx to dose) 1 ea DAILY PRN MISC Per rx protocol 10/16/19 12:15 11/15/19 12:14 Assessment/Plan Problem List: (1) Cellulitis and abscess of lower extremity Assessment & Plan: Patient presented admission with bilateral lower extremity edema and cellulitis. Right greater than left. On admission left side open to air with small wounds identified right side with significantly more edema erythema and multiple areas of skin breakdown. No purulent drainage. Serosanguineous oozing from the sites of open wounds. Tender on palpation no fluctuance no abscess identified. Patient states he has had for a few days now and feels is worsening. He has been receiving care with Silvadene in the nursing facility and says feels better improving. Labs reviewed and identified as above. No nausea vomiting fever chills. Will plan for continuation of care and close evaluation while in the hospital. Will need to monitor for potential abscess formation. IV antibiotics as per infectious disease. Keep lower extremities elevated. Patient not compliant with care at all times. Wash lower extremities daily normal saline or soap and water. Apply Silvadene followed by nonadherent dressing and Kerlix wrap. Perform daily and as needed saturation. Will follow with recommendations. Thank you for let me participate in patient's care ICD Codes: L03.119 - Cellulitis of unspecified part of limb; L02.419 - Cutaneous abscess of limb, unspecified SNOMED: 394911911 Kumar Leonard October 16, 2019 17:59
[2019-10-16] MEDS ORDERED: DIGOXIN250 MCG ORAL (18:22)
[2019-10-16] MEDS ORDERED: AMIODARONE HCL200 MG ORAL (18:22)
[2019-10-16 20:00] VITALS: BP 134/76
[2019-10-17] VITALS: BP 108/62
[2019-10-17] MEDS: Albuterol 90mcg Inhaler 8gm INH SCH ×6 (01:00→21:00)
[2019-10-17 04:00] VITALS: BP 140/74
--- NOTE | 2019-10-17 04:44 | Progress Note ---
DATE: 10/16/2019 CARDIOLOGY PROGRESS NOTE SUBJECTIVE: The patient had episodes of bradycardia overnight AFib with rates in the high 20s. No symptoms noted. The patient was digoxin toxic with levels above 3 on admission. The patient is off oxygen, has been having some congestion. PHYSICAL EXAMINATION: VITAL SIGNS: Blood pressure 119/57, heart rate 47, respiratory rate 22, afebrile. CHEST: Coarse breath sounds. CARDIAC: Irregularly irregular rhythm. Slow rate. Normal S1, S2. 1/6 systolic murmur at apex. ABDOMEN: Soft. Trace edema. LABORATORY DATA: Echocardiogram performed revealing normal ejection fraction and no significant valvular disease. There is no pulmonary hypertension noted either. White count 9.3 and hemoglobin 11.9. Digoxin level 3.4. Urinalysis with 0 to 2 white cells. Sodium 154, potassium 4.7, chloride 115, bicarb 28, BUN 51, creatinine 2.3. Glucose was 26 this morning. IMPRESSION: 1. Digoxin toxicity. 2. Paroxysmal atrial fibrillation. 3. Bradyarrhythmias. 4. Conduction system disease of the heart. 5. Dehydration. 6. Hypernatremia. 7. Hyperchloremia. 8. Acute on chronic renal failure. 9. Hypoglycemia. 10. COPD. 11. Metabolic encephalopathy. PLAN: 1. Cardiac monitoring. 2. Holding digoxin. 3. Digibind for symptomatic bradyarrhythmias. 4. Hydration with hypotonic IV fluids. 5. Replacement of electrolytes as needed. 6. Off beta-blockers. 7. Off diuretics. 8. Reassess medication regimen once toxicity and metabolic derangements have been corrected. Anibal Cheatham M.D. DR: Yesenia JOB#: [id number] CC:
[2019-10-17] MEDS: NovoLOG Insulin Flexpen SUBQ SCH ×4 (05:52→21:00)
[2019-10-17] MEDS: sitaGLIPtin 50mg tab ORAL SCH (05:52)
[2019-10-17] MEDS: GlipiZIDE 5mg tab ORAL SCH ×2 (05:52→17:21)
[2019-10-17 07:16] LABS: BASOPHILS % (AUTO) 0.8 % (0.0-2.0); EOSINOPHILS % (AUTO) 4.4 % (0.0-3.0); HEMATOCRIT 34.7 % (42.0-52.0); HEMOGLOBIN 11.4 G/DL (14.2-18.0); LYMPHOCYTES % (AUTO) 14.2 % (20.0-45.0); MEAN CORPUSCULAR VOLUME 90 FL (80-99); MONOCYTES % (AUTO) 9.7 % (1.0-10.0); NEUTROPHILS % (AUTO) 70.9 % (45.0-75.0); PLATELET COUNT 115 K/UL (150-450); RED BLOOD COUNT 3.85 M/UL (4.70-6.10); WHITE BLOOD COUNT 8.3 K/UL (4.8-10.8)
--- NOTE | 2019-10-17 07:45 | Consultation ---
DATE OF CONSULTATION: 10/15/2019 CARDIOLOGY CONSULTATION CONSULTING PHYSICIAN: Anibal Cheatham MD. REFERRING PHYSICIAN: Noel Weldon MD. REASON: Bradyarrhythmias, digoxin toxicity, and recurring falls. HISTORY OF PRESENT ILLNESS: This is an 79-year-old male, who resides in an assisted living facility. He has a long-standing history of atrial fibrillation and is on anticoagulation for cardioembolic prophylaxis. He has had several falls over the past few days and although he has not had head trauma, he is a poor historian. So, concern for that exists. He was noted in the emergency room to have bradycardic atrial rhythm and his digoxin level was 3.2. PAST MEDICAL HISTORY: Notable for schizoaffective disorder, hypertensive heart disease, systolic diastolic congestive heart failure, chronic atrial fibrillation, peripheral artery disease, Parkinsonism, COPD, neurogenic bladder with incontinence, type 2 diabetes mellitus. SOCIAL HISTORY: Heavy smoker almost all his life. No alcohol abuse or substance abuse. Lives in an assisted living facility. MEDICATIONS: Prior to admission, reviewed and reconciled. ALLERGIES: None known. FAMILY HISTORY: Noncontributory. REVIEW OF SYSTEMS: Cannot be reliably obtained from patient. Review of records is performed x20 minutes and pertinent data as outlined above. PHYSICAL EXAMINATION: GENERAL: Alert, withdrawn, no acute distress. VITAL SIGNS: Afebrile, blood pressure 110/60, heart rate 54, respirations 16, oxygen saturation 96% on room air. HEENT: Normocephalic, atraumatic. Conjunctivae pink. Oropharynx clear. Mucous membranes dry. NECK: Supple. Jugular venous pressure normal. Carotid upstrokes without delay. LUNGS: Clear with diminished breath sounds. CARDIAC: Irregularly irregular rhythm. Slow rate. Normal S1, S2. A 1/6 systolic murmur at lower left sternal border. ABDOMEN: Obese, soft, and nontender with no bruits. EXTREMITIES: Reveal 1+ dependent edema. Left leg with some cellulitic changes and drying wound site. Distal pulses palpable, but diminished. NEUROLOGIC: Nonfocal. There is some rigidity. DIAGNOSTIC AND LABORATORY DATA: Electrocardiogram revealed atrial fibrillation with slow ventricular response. White count is 10, hemoglobin 11.6. Sodium 149, potassium 4.6, bicarb 27, BUN 53, creatinine 2.3. CK 339. Troponin 0.029. Pro-natriuretic peptide 1544. IMPRESSION: 1. Digoxin toxicity. 2. Bradyarrhythmias. 3. Chronic atrial fibrillation. 4. Dehydration. 5. Hypernatremia. 6. Hyperkalemia. 7. Acute on chronic renal failure. 8. Mild rhabdomyolysis. 9. Acute on chronic diastolic and systolic congestive heart failure. 10. Mild protein-calorie malnutrition. 11. COPD with no active bronchospasm. 12. Underlying cardiomyopathy. PLAN: 1. Cardiac monitoring. 2. Hold digoxin. 3. Consider Digibind for symptomatic bradyarrhythmias. 4. Hypotonic IV fluids. 5. No diuretics. 6. No beta-blockers. 7. Obviously no digoxin at this time. 8. Cardiac monitoring ongoing. 9. Echocardiogram pending. 10. Continue full anticoagulation with Pradaxa with dosing based on renal function. 11. Condition is critical with guarded prognosis. Anibal Cheatham M.D. DR: NEIDA JOB#: [id number] CC:
[2019-10-17 07:56] VITALS: BP 139/81
[2019-10-17 07:58] LABS: ALANINE AMINOTRANSFERASE 34 U/L (12-78); ALBUMIN/GLOBULIN RATIO 0.8 (1.0-2.7); ALKALINE PHOSPHATASE 76 U/L (46-116); ANION GAP 7 mmol/L (5-15); ASPARTATE AMINO TRANSFERASE 23 U/L (15-37); BILIRUBIN,TOTAL 0.4 MG/DL (0.2-1.0); BLOOD UREA NITROGEN 48 mg/dL (7-18); CALCIUM 8.6 MG/DL (8.5-10.1); CARBON DIOXIDE 26 MMOL/L (21-32); CHLORIDE 110 MMOL/L (98-107); CREATINE KINASE 126 U/L (26-308); SODIUM 143 MMOL/L (136-145)
[2019-10-17] MEDS: Tamsulosin 0.4mg cap ORAL SCH (09:03)
[2019-10-17] MEDS: Lisinopril 2.5mg tab ORAL SCH (09:03)
[2019-10-17] MEDS: Milk of Magnesia 30ml Ud ORAL SCH (09:03)
[2019-10-17] MEDS: Eliquis 2.5mg tablet ORAL SCH ×2 (09:04→21:00)
[2019-10-17] MEDS: Doxycycline Monohydrate 100mg ORAL SCH ×2 (09:04→21:00)
--- NOTE | 2019-10-17 11:10 | General Progress Note ---
Assessment/Plan Problem List: (1) Hypernatremia ICD Codes: E87.0 - Hyperosmolality and hypernatremia SNOMED: 894521848 (2) CKD (chronic kidney disease) stage 3, GFR 30-59 ml/min ICD Codes: N18.3 - Chronic kidney disease, stage 3 (moderate) SNOMED: 877816024 (3) Dehydration ICD Codes: E86.0 - Dehydration SNOMED: 17937418 (4) Edin-tachy syndrome ICD Codes: I49.5 - Sick sinus syndrome SNOMED: 65795099 (5) Digoxin toxicity ICD Codes: T46.0X1A - Poisoning by cardiac-stimulant glycosides and drugs of similar action, accidental (unintentional), initial encounter SNOMED: 93388788 (6) Dehydration ICD Codes: E86.0 - Dehydration SNOMED: 40039680 (7) Weakness ICD Codes: R53.1 - Weakness SNOMED: 38965565 (8) A-fib ICD Codes: I48.91 - Unspecified atrial fibrillation SNOMED: 71633637 (9) Elevated troponin ICD Codes: R79.89 - Other specified abnormal findings of blood chemistry SNOMED: 163485271, 889287163, 251338548 (10) Parkinsonian syndrome ICD Codes: G20 - Parkinson's disease SNOMED: 17114470 (11) Schizophrenia ICD Codes: F20.9 - Schizophrenia, unspecified SNOMED: 98031539 (12) Falls frequently ICD Codes: R29.6 - Repeated falls SNOMED: 787219117 (13) Cellulitis and abscess of lower extremity ICD Codes: L03.119 - Cellulitis of unspecified part of limb; L02.419 - Cutaneous abscess of limb, unspecified SNOMED: 327617584 Assessment/Plan: empiric atb, hold dig and amiodorone, can dc iv fluids, tele, wound care Subjective Constitutional: Reports: weakness HEENT: Reports: no symptoms Cardiovascular: Reports: irregular heart rate Respiratory: Reports: cough Gastrointestinal/Abdominal: Reports: no symptoms Genitourinary: Reports: incontinence Neurologic/Psychiatric: Reports: pre-existing deficit Endocrine: Reports: no symptoms Hematologic/Lymphatic: Reports: no symptoms Allergies: Coded Allergies: No Known Allergies (Unverified , 08/25/12) Objective Last 24 Hour Vital Signs Date Time Temp Pulse Resp B/P (MAP) Pulse Ox O2 Delivery O2 Flow Rate FiO2 10/17/19 09:03 139/81 10/17/19 09:00 Room Air 10/17/19 08:16 65 10/17/19 07:56 97.6 60 19 139/81 (100) 97 10/17/19 04:00 97.6 73 20 140/74 (96) 96 10/17/19 04:00 67 10/17/19 00:00 96.2 73 16 108/62 (77) 96 10/17/19 00:00 68 10/16/19 21:00 Room Air 10/16/19 20:00 53 10/16/19 20:00 97.6 56 18 134/76 (95) 93 10/16/19 16:00 96.7 80 20 124/70 (88) 98 10/16/19 15:21 48 10/16/19 12:42 55 10/16/19 11:46 97.6 67 19 113/60 (77) 96 Intake and Output 10/16/19 10/17/19 19:00 07:00 Intake Total 1015.0 ml Output Total 1200 ml Balance -185.0 ml Intake Oral 140 ml IV Total 875.0 ml Output Urine Total 1200 ml # Voids 3 2 # Bowel Movements 1 1 Laboratory Tests 10/17/19 06:30: White Blood Count 8.3, Red Blood Count 3.85L, Hemoglobin 11.4L, Hematocrit 34.7L , Mean Corpuscular Volume 90, Mean Corpuscular Hemoglobin 29.7, Mean Corpuscular Hemoglobin Concent 33.0, Red Cell Distribution Width 14.0, Platelet Count 115L, Mean Platelet Volume 7.4, Neutrophils (%) (Auto) 70.9, Lymphocytes ( %) (Auto) 14.2L, Monocytes (%) (Auto) 9.7, Eosinophils (%) (Auto) 4.4H, Basophils (%) (Auto) 0.8, Sodium Level 143, Potassium Level 5.0, Chloride Level 110H, Carbon Dioxide Level 26, Anion Gap 7, Blood Urea Nitrogen 48H, Creatinine 2.0H, Estimat Glomerular Filtration Rate 32.3, Glucose Level 246#H, Calcium Level 8.6, Total Bilirubin 0.4, Aspartate Amino Transf (AST/SGOT) 23, Alanine Aminotransferase (ALT/SGPT) 34, Alkaline Phosphatase 76, Total Creatine Kinase 126, Total Protein 6.9, Albumin 3.0L, Globulin 3.9, Albumin/Globulin Ratio 0.8L , Thyroid Stimulating Hormone (TSH) 1.028, Digoxin Level 2.3H Height (Feet): 6 Height (Inches): 2.00 Weight (Pounds): 210 General Appearance: no apparent distress, obese EENT: normal ENT inspection Neck: normal alignment Cardiovascular: regularly irregular Respiratory/Chest: rhonchi - bilaterally Abdomen: soft Edema: moderate edema Neurologic: case therapist II-XII grossly normal Skin: other - cellulitis ulcers of leg Noel Weldon MD October 17, 2019 11:10
[2019-10-17 12:00] VITALS: BP 137/61
--- NOTE | 2019-10-17 13:24 | Surgery Progress Note ---
Surgery Progress Note Subjective Additional Comments no acute events resting comfortable no n/v/f/c labs reviewed exam stable Objective Last 24 Hour Vital Signs Date Time Temp Pulse Resp B/P (MAP) Pulse Ox O2 Delivery O2 Flow Rate FiO2 10/17/19 12:00 98.6 63 20 137/61 (86) 96 10/17/19 09:03 139/81 10/17/19 09:00 Room Air 10/17/19 08:16 65 10/17/19 07:56 97.6 60 19 139/81 (100) 97 10/17/19 04:00 97.6 73 20 140/74 (96) 96 10/17/19 04:00 67 10/17/19 00:00 96.2 73 16 108/62 (77) 96 10/17/19 00:00 68 10/16/19 21:00 Room Air 10/16/19 20:00 53 10/16/19 20:00 97.6 56 18 134/76 (95) 93 10/16/19 16:00 96.7 80 20 124/70 (88) 98 10/16/19 15:21 48 I&O Intake and Output 10/16/19 10/17/19 19:00 07:00 Intake Total 1015.0 ml Output Total 1200 ml Balance -185.0 ml Intake Oral 140 ml IV Total 875.0 ml Output Urine Total 1200 ml # Voids 3 2 # Bowel Movements 1 1 Dressing: saturated Wound: clean Cardiovascular: RSR Respiratory: clear Abdomen: soft, flat, non-tender, present bowel sounds Extremities: edema, tenderness, no cyanosis, pulses, other Laboratory Tests Test 10/17/19 06:30 White Blood Count 8.3 K/UL (4.8-10.8) Red Blood Count 3.85 M/UL (4.70-6.10) L Hemoglobin 11.4 G/DL (14.2-18.0) L Hematocrit 34.7 % (42.0-52.0) L Mean Corpuscular Volume 90 FL (80-99) Mean Corpuscular Hemoglobin 29.7 PG (27.0-31.0) Mean Corpuscular Hemoglobin Concent 33.0 G/DL (32.0-36.0) Red Cell Distribution Width 14.0 % (11.6-14.8) Platelet Count 115 K/UL (150-450) L Mean Platelet Volume 7.4 FL (6.5-10.1) Neutrophils (%) (Auto) 70.9 % (45.0-75.0) Lymphocytes (%) (Auto) 14.2 % (20.0-45.0) L Monocytes (%) (Auto) 9.7 % (1.0-10.0) Eosinophils (%) (Auto) 4.4 % (0.0-3.0) H Basophils (%) (Auto) 0.8 % (0.0-2.0) Sodium Level 143 MMOL/L (136-145) Potassium Level 5.0 MMOL/L (3.5-5.1) Chloride Level 110 MMOL/L (98-107) H Carbon Dioxide Level 26 MMOL/L (21-32) Anion Gap 7 mmol/L (5-15) Blood Urea Nitrogen 48 mg/dL (7-18) H Creatinine 2.0 MG/DL (0.55-1.30) H Estimat Glomerular Filtration Rate 32.3 mL/min (>60) Glucose Level 246 MG/DL (74-106) #H Calcium Level 8.6 MG/DL (8.5-10.1) Total Bilirubin 0.4 MG/DL (0.2-1.0) Aspartate Amino Transf (AST/SGOT) 23 U/L (15-37) Alanine Aminotransferase (ALT/SGPT) 34 U/L (12-78) Alkaline Phosphatase 76 U/L (46-116) Total Creatine Kinase 126 U/L (26-308) Total Protein 6.9 G/DL (6.4-8.2) Albumin 3.0 G/DL (3.4-5.0) L Globulin 3.9 g/dL Albumin/Globulin Ratio 0.8 (1.0-2.7) L Thyroid Stimulating Hormone (TSH) 1.028 uiU/mL (0.358-3.740) Digoxin Level 2.3 NG/ML (0.5-2.0) H Plan Problems: (1) Cellulitis and abscess of lower extremity Assessment & Plan: Patient presented admission with bilateral lower extremity edema and cellulitis. Right greater than left. On admission left side open to air with small wounds identified right side with significantly more edema erythema and multiple areas of skin breakdown. No purulent drainage. Serosanguineous oozing from the sites of open wounds. Tender on palpation no fluctuance no abscess identified. Patient states he has had for a few days now and feels is worsening. He has been receiving care with Silvadene in the nursing facility and says feels better improving. Labs reviewed and identified as above. No nausea vomiting fever chills. Will plan for continuation of care and close evaluation while in the hospital. Will need to monitor for potential abscess formation. IV antibiotics as per infectious disease. Keep lower extremities elevated. Patient not compliant with care at all times. Wash lower extremities daily normal saline or soap and water. Apply Silvadene followed by nonadherent dressing and Kerlix wrap. Perform daily and as needed saturation. Will follow with recommendations. Thank you for let me participate in patient's care patient okay but not always compliant with care plan cont abx will monitor HoracioKumar October 17, 2019 13:24
--- NOTE | 2019-10-17 15:47 | Pulmonology Progress Note ---
Subjective ROS Limited/Unobtainable: Yes Allergies: Coded Allergies: No Known Allergies (Unverified , 08/25/12) Subjective care noted currently not using oxygen respiratory care noted Objective Last 24 Hour Vital Signs Date Time Temp Pulse Resp B/P (MAP) Pulse Ox O2 Delivery O2 Flow Rate FiO2 10/17/19 12:29 61 10/17/19 12:00 98.6 63 20 137/61 (86) 96 10/17/19 09:03 139/81 10/17/19 09:00 Room Air 10/17/19 08:16 65 10/17/19 07:56 97.6 60 19 139/81 (100) 97 10/17/19 04:00 97.6 73 20 140/74 (96) 96 10/17/19 04:00 67 10/17/19 00:00 96.2 73 16 108/62 (77) 96 10/17/19 00:00 68 10/16/19 21:00 Room Air 10/16/19 20:00 53 10/16/19 20:00 97.6 56 18 134/76 (95) 93 10/16/19 16:00 96.7 80 20 124/70 (88) 98 Intake and Output 10/16/19 10/17/19 19:00 07:00 Intake Total 1015.0 ml Output Total 1200 ml Balance -185.0 ml Intake Oral 140 ml IV Total 875.0 ml Output Urine Total 1200 ml # Voids 3 2 # Bowel Movements 1 1 Objective GENERAL: Advanced age. NAD HEENT: Negative. NECK: Supple. LUNGS: Moderate breath sounds. Occasional rhonchi. no wheeze CARDIAC: S1, S2. Regular rate and rhythm without murmurs, rubs or gallops. ABDOMEN: Soft, nontender, nondistended. EXTREMITIES: No cyanosis, clubbing or edema. NEUROLOGIC: Grossly nonfocal. reviewed and edited Microbiology Date/Time Source Procedure Growth Status 10/15/19 10:48 Blood Blood Culture - Preliminary NO GROWTH AFTER 24 HOURS Resulted 10/15/19 10:30 Blood Blood Culture - Preliminary NO GROWTH AFTER 24 HOURS Resulted 10/16/19 14:07 Leg Right Gram Stain - Final Resulted 10/16/19 14:07 Wound Culture - Preliminary Gram Negative Bacillus 1 Resulted Laboratory Tests 10/17/19 06:30: White Blood Count 8.3, Red Blood Count 3.85L, Hemoglobin 11.4L, Hematocrit 34.7L , Mean Corpuscular Volume 90, Mean Corpuscular Hemoglobin 29.7, Mean Corpuscular Hemoglobin Concent 33.0, Red Cell Distribution Width 14.0, Platelet Count 115L, Mean Platelet Volume 7.4, Neutrophils (%) (Auto) 70.9, Lymphocytes ( %) (Auto) 14.2L, Monocytes (%) (Auto) 9.7, Eosinophils (%) (Auto) 4.4H, Basophils (%) (Auto) 0.8, Sodium Level 143, Potassium Level 5.0, Chloride Level 110H, Carbon Dioxide Level 26, Anion Gap 7, Blood Urea Nitrogen 48H, Creatinine 2.0H, Estimat Glomerular Filtration Rate 32.3, Glucose Level 246#H, Calcium Level 8.6, Total Bilirubin 0.4, Aspartate Amino Transf (AST/SGOT) 23, Alanine Aminotransferase (ALT/SGPT) 34, Alkaline Phosphatase 76, Total Creatine Kinase 126, Total Protein 6.9, Albumin 3.0L, Globulin 3.9, Albumin/Globulin Ratio 0.8L , Thyroid Stimulating Hormone (TSH) 1.028, Digoxin Level 2.3H Current Medications Medications (Trade) Dose Ordered Sig/Bethany Route PRN Reason Start Time Stop Time Status Last Admin Dose Admin Acetaminophen (Tylenol) 650 mg Q4H PRN ORAL Mild Pain (Pain Scale 1-3) 10/15/19 20:15 11/14/19 20:14 Acetaminophen (Tylenol) 650 mg Q4H PRN ORAL Temp >100.5 10/15/19 20:30 11/14/19 20:29 Albuterol Sulfate (Proventil MDI) 2 puff Q4H INH 10/15/19 21:00 01/13/20 20:59 10/17/19 13:04 Apixaban (Eliquis) 2.5 mg Q12HR ORAL 10/15/19 21:00 01/13/20 20:59 10/17/19 09:04 Aripiprazole (Abilify) 5 mg DAILY ORAL 10/17/19 09:00 12/01/19 08:59 10/17/19 09:03 Atorvastatin Calcium (Lipitor) 10 mg BEDTIME ORAL 10/15/19 21:00 01/13/20 20:59 10/16/19 20:53 Dextrose (Dextrose 50%) 25 ml Q30M PRN IV Hypoglycemia 10/15/19 20:30 01/13/20 20:29 Dextrose (Dextrose 50%) 50 ml Q30M PRN IV Hypoglycemia 10/15/19 20:30 01/13/20 20:29 Doxycycline Monohydrate (Doxycycline Monohydrate) 100 mg EVERY 12 HOURS ORAL 10/15/19 21:00 10/22/19 20:59 10/17/19 09:04 Gabapentin (Neurontin) 100 mg TWICE A DAY ORAL 10/16/19 09:00 11/15/19 08:59 10/17/19 09:04 Glipizide (Glucotrol) 10 mg BIAC ORAL 10/16/19 06:30 11/15/19 06:29 10/17/19 05:52 Insulin Aspart (NovoLOG) BEFORE MEALS AND HS SUBQ 10/15/19 21:00 01/13/20 20:59 Lisinopril (ZestriL) 5 mg DAILY ORAL 10/16/19 09:00 11/15/19 08:59 10/17/19 09:03 Magnesium Hydroxide (Mom) 30 ml DAILY ORAL 10/16/19 09:00 11/15/19 08:59 10/17/19 09:03 Magnesium Hydroxide (Mom) 30 ml HSPRN PRN ORAL Constipation 10/15/19 20:15 11/14/19 20:14 Pantoprazole (Protonix) 40 mg ACBREAKFAST ORAL 10/16/19 06:30 11/15/19 06:29 10/17/19 05:52 Silver Sulfadiazine (Silvadene Cream 25gm) 1 applic TWICE A DAY TOPIC 10/16/19 09:00 01/14/20 08:59 10/17/19 09:06 Sitagliptin Phosphate (Januvia) 50 mg ACBREAKFAST ORAL 10/16/19 06:30 11/15/19 06:29 10/17/19 05:52 Tamsulosin HCl (Flomax) 0.4 mg DAILY ORAL 10/16/19 09:00 11/15/19 08:59 10/17/19 09:03 Vancomycin HCl (Vanco rx to dose) 1 ea DAILY PRN MISC Per rx protocol 10/16/19 12:15 11/15/19 12:14 Assessment/Plan Assessment/Plan IMPRESSION: Possible COVID-related pneumonia, COPD, shortness of breath, noted anemia, digoxin toxicity, toxic metabolic encephalopathy. PLAN care noted and discussed respiratory care oxygen management off load as able encourage cough monitor imaging for change impression, plan, and exam edited and reviewed in detail care discussed with Corey Sanchez MD October 17, 2019 15:47
[2019-10-17 16:00] VITALS: BP 130/70
[2019-10-17 20:00] VITALS: BP 134/78
[2019-10-18] VITALS: BP 167/77
--- NOTE | 2019-10-18 00:15 | Progress Note ---
DATE: 10/17/2019 CARDIOLOGY PROGRESS NOTE SUBJECTIVE: The patient's cardiac medications have largely been on hold since admission including digoxin and metoprolol and amiodarone although it has not been confirmed that he had been taking that. He remains with low normal heart rate and monitored rhythm of atrial fibrillation. No pauses. In the last 24 hours, his heart rates have been in the 48 to 73 range. Blood pressure 140/74, oxygen saturation on room air 96%, and he is afebrile. He has no chest pain, shortness of breath, or dizziness and there has been no loss of consciousness. PHYSICAL EXAMINATION: HEENT: Dry mucous membranes. LUNGS: Clear. CARDIAC: Irregularly irregular rhythm. Normal S1, S2 with a 1/6 systolic murmur at apex. ABDOMEN: Soft. EXTREMITIES: With no edema. Right leg wound is dry. LABORATORY DATA: White count 8.3, hemoglobin 11.4. Digoxin level 2.3. Potassium 5, BUN 48, creatinine 2. IMPRESSION: 1. Digoxin toxicity improving. 2. Dehydration and hypernatremia resolving. 3. Acute on chronic renal failure improving. 4. Mild protein-calorie malnutrition. 5. Euthyroid state. 6. Atrial fibrillation with slow ventricular response. 7. Hypertensive heart disease with controlled blood pressure. 8. Diastolic dysfunction with no signs of acute congestive heart failure. PLAN: 1. Continue hydration. 2. Monitor cardiorenal function and volume status. 3. Continue to hold metoprolol, digitalis, and amiodarone. 4. Continue cardioembolic prophylaxis with apixaban. 5. We will restart rate control therapy as needed in a stepwise fashion as digoxin levels dissipate. Anibal Cheatham M.D. DR: NEIDA JOB#: [id number] CC:
[2019-10-18] MEDS: Albuterol 90mcg Inhaler 8gm INH SCH ×6 (01:00→20:56)
[2019-10-18 04:00] VITALS: BP 150/74
[2019-10-18] MEDS: NovoLOG Insulin Flexpen SUBQ SCH ×4 (06:30→20:51)
[2019-10-18] MEDS: sitaGLIPtin 50mg tab ORAL SCH (06:53)
[2019-10-18] MEDS: GlipiZIDE 5mg tab ORAL SCH ×2 (06:53→17:26)
[2019-10-18 08:00] VITALS: BP 125/71
[2019-10-18 08:01] LABS: BASOPHILS % (AUTO) 0.4 % (0.0-2.0); EOSINOPHILS % (AUTO) 4.9 % (0.0-3.0); HEMATOCRIT 33.9 % (42.0-52.0); HEMOGLOBIN 11.3 G/DL (14.2-18.0); LYMPHOCYTES % (AUTO) 11.2 % (20.0-45.0); MEAN CORPUSCULAR VOLUME 90 FL (80-99); MONOCYTES % (AUTO) 8.7 % (1.0-10.0); NEUTROPHILS % (AUTO) 74.7 % (45.0-75.0); PLATELET COUNT 128 K/UL (150-450); RED BLOOD COUNT 3.78 M/UL (4.70-6.10); WHITE BLOOD COUNT 8.4 K/UL (4.8-10.8)
[2019-10-18 08:40] LABS: ANION GAP 4 mmol/L (5-15); BLOOD UREA NITROGEN 34 mg/dL (7-18); CALCIUM 8.9 MG/DL (8.5-10.1); CARBON DIOXIDE 30 MMOL/L (21-32); CHLORIDE 111 MMOL/L (98-107); CREATININE 1.6 MG/DL (0.55-1.30); POTASSIUM 4.6 MMOL/L (3.5-5.1); SODIUM 145 MMOL/L (136-145)
[2019-10-18] MEDS: Milk of Magnesia 30ml Ud ORAL SCH (09:16)
[2019-10-18] MEDS: Doxycycline Monohydrate 100mg ORAL SCH ×2 (09:17→20:35)
[2019-10-18] MEDS: Tamsulosin 0.4mg cap ORAL SCH (09:17)
[2019-10-18] MEDS: Lisinopril 2.5mg tab ORAL SCH (09:17)
[2019-10-18] MEDS: Eliquis 2.5mg tablet ORAL SCH ×2 (09:17→20:35)
--- NOTE | 2019-10-18 10:25 | Pulmonology Progress Note ---
Subjective ROS Limited/Unobtainable: Yes Allergies: Coded Allergies: No Known Allergies (Unverified , 08/25/12) Subjective care noted off oxygen respiratory care noted Objective Last 24 Hour Vital Signs Date Time Temp Pulse Resp B/P (MAP) Pulse Ox O2 Delivery O2 Flow Rate FiO2 10/18/19 09:17 125/71 10/18/19 09:00 Room Air 10/18/19 08:00 97.6 77 20 125/71 (89) 95 10/18/19 07:41 73 10/18/19 04:00 59 10/18/19 04:00 98.7 76 18 150/74 (99) 93 10/18/19 00:00 96.7 68 16 167/77 (107) 93 10/18/19 00:00 58 10/17/19 21:00 Room Air 10/17/19 20:00 52 10/17/19 20:00 96.7 66 16 134/78 (96) 99 10/17/19 16:00 98.6 80 18 130/70 (90) 96 10/17/19 15:46 62 10/17/19 12:29 61 10/17/19 12:00 98.6 63 20 137/61 (86) 96 Intake and Output 10/17/19 10/18/19 19:00 07:00 Intake Total 400 ml Output Total 0 ml Balance 400 ml 0 ml IV Total 400 ml Stool Total 0 ml # Voids 4 1 Objective GENERAL: Advanced age. NAD HEENT: Negative. NECK: Supple. LUNGS: Moderate breath sounds. Occasional rhonchi. no wheeze CARDIAC: S1, S2. Regular rate and rhythm without murmurs, rubs or gallops. ABDOMEN: Soft, nontender, nondistended. EXTREMITIES: No cyanosis, clubbing or edema. NEUROLOGIC: Grossly nonfocal. reviewed and edited Microbiology Date/Time Source Procedure Growth Status 10/15/19 10:48 Blood Blood Culture - Preliminary NO GROWTH AFTER 48 HOURS Resulted 10/15/19 10:30 Blood Blood Culture - Preliminary NO GROWTH AFTER 48 HOURS Resulted 10/16/19 14:07 Leg Right Gram Stain - Final Resulted 10/16/19 14:07 Wound Culture - Preliminary Gram Negative Bacillus 1 Resulted Laboratory Tests 10/18/19 06:40: White Blood Count 8.4, Red Blood Count 3.78L, Hemoglobin 11.3L, Hematocrit 33.9L , Mean Corpuscular Volume 90, Mean Corpuscular Hemoglobin 29.9, Mean Corpuscular Hemoglobin Concent 33.3, Red Cell Distribution Width 14.0, Platelet Count 128L, Mean Platelet Volume 7.8, Neutrophils (%) (Auto) 74.7, Lymphocytes ( %) (Auto) 11.2L, Monocytes (%) (Auto) 8.7, Eosinophils (%) (Auto) 4.9H, Basophils (%) (Auto) 0.4, Sodium Level 145, Potassium Level 4.6, Chloride Level 111H, Carbon Dioxide Level 30, Anion Gap 4L, Blood Urea Nitrogen 34H, Creatinine 1.6H, Estimat Glomerular Filtration Rate 41.8, Glucose Level 104#, Calcium Level 8.9, Random Vancomycin Level 3.8 Current Medications Medications (Trade) Dose Ordered Sig/Bethany Route PRN Reason Start Time Stop Time Status Last Admin Dose Admin Acetaminophen (Tylenol) 650 mg Q4H PRN ORAL Mild Pain (Pain Scale 1-3) 10/15/19 20:15 11/14/19 20:14 Acetaminophen (Tylenol) 650 mg Q4H PRN ORAL Temp >100.5 10/15/19 20:30 11/14/19 20:29 Albuterol Sulfate (Proventil MDI) 2 puff Q4H INH 10/15/19 21:00 01/13/20 20:59 10/18/19 09:17 Apixaban (Eliquis) 2.5 mg Q12HR ORAL 10/15/19 21:00 01/13/20 20:59 10/18/19 09:17 Aripiprazole (Abilify) 5 mg DAILY ORAL 10/17/19 09:00 12/01/19 08:59 10/18/19 09:16 Atorvastatin Calcium (Lipitor) 10 mg BEDTIME ORAL 10/15/19 21:00 01/13/20 20:59 10/17/19 21:00 Dextrose (Dextrose 50%) 25 ml Q30M PRN IV Hypoglycemia 10/15/19 20:30 01/13/20 20:29 Dextrose (Dextrose 50%) 50 ml Q30M PRN IV Hypoglycemia 10/15/19 20:30 01/13/20 20:29 Doxycycline Monohydrate (Doxycycline Monohydrate) 100 mg EVERY 12 HOURS ORAL 10/15/19 21:00 10/22/19 20:59 10/18/19 09:17 Gabapentin (Neurontin) 100 mg TWICE A DAY ORAL 10/16/19 09:00 11/15/19 08:59 10/18/19 09:17 Glipizide (Glucotrol) 10 mg BIAC ORAL 10/16/19 06:30 11/15/19 06:29 10/18/19 06:53 Insulin Aspart (NovoLOG) BEFORE MEALS AND HS SUBQ 10/15/19 21:00 01/13/20 20:59 Lisinopril (ZestriL) 5 mg DAILY ORAL 10/16/19 09:00 11/15/19 08:59 10/18/19 09:17 Magnesium Hydroxide (Mom) 30 ml DAILY ORAL 10/16/19 09:00 11/15/19 08:59 10/18/19 09:16 Magnesium Hydroxide (Mom) 30 ml HSPRN PRN ORAL Constipation 10/15/19 20:15 11/14/19 20:14 Pantoprazole (Protonix) 40 mg ACBREAKFAST ORAL 10/16/19 06:30 11/15/19 06:29 10/18/19 06:53 Silver Sulfadiazine (Silvadene Cream 25gm) 1 applic TWICE A DAY TOPIC 10/16/19 09:00 01/14/20 08:59 10/18/19 09:17 Sitagliptin Phosphate (Januvia) 50 mg ACBREAKFAST ORAL 10/16/19 06:30 11/15/19 06:29 10/18/19 06:53 Tamsulosin HCl (Flomax) 0.4 mg DAILY ORAL 10/16/19 09:00 11/15/19 08:59 10/18/19 09:17 Vancomycin HCl (Vanco rx to dose) 1 ea DAILY PRN MISC Per rx protocol 10/16/19 12:15 11/15/19 12:14 Vancomycin HCl 1 gm/Sodium Chloride 275 ml @ 183.708 mls/hr Q24H IVPB 10/18/19 11:00 10/23/19 10:59 UNV Assessment/Plan Assessment/Plan IMPRESSION: negative COVID-related pneumonia, COPD, shortness of breath, noted anemia, digoxin toxicity, toxic metabolic encephalopathy. PLAN care noted and discussed respiratory care/ minimal oxygen needs ID noted off load as able encourage cough monitor imaging for change and clearing impression, plan, and exam edited and reviewed in detail care discussed with Corey Sanchez MD October 18, 2019 10:25
[2019-10-18] MEDS: Vancomycin 1 GM in NS 275 ML IVPB SCH (11:13)
[2019-10-18 12:00] VITALS: BP 126/60
--- NOTE | 2019-10-18 14:37 | Diagnostic Imaging Report ---
EXAM: XR Chest, 1 View CLINICAL HISTORY: Shortness of breath TECHNIQUE: Frontal view of the chest. COMPARISON: Chest x-ray dated 10/15/19 FINDINGS: Lungs: Mild pulmonary vascular congestion. Subsegmental atelectasis versus infiltrate in the medial right lung base. Pleural space: Unremarkable. The costophrenic angles are sharp. No visible pneumothorax. Heart: Borderline cardiomegaly. Mediastinum: Unremarkable. Bones/joints: Unremarkable. Tubes, lines and devices: Telemetry leads overlie the thorax. Upper abdomen: Elevation of the right hemidiaphragm. IMPRESSION: 1. Elevation of the right hemidiaphragm. 2. Mild pulmonary vascular congestion. 3. Subsegmental atelectasis versus infiltrate in the medial right lung base. 4. Borderline cardiomegaly.
[2019-10-18 16:00] VITALS: BP 102/69
--- NOTE | 2019-10-18 18:17 | Surgery Progress Note ---
Surgery Progress Note Subjective Additional Comments no acute events labs reviewed exam stable Objective Last 24 Hour Vital Signs Date Time Temp Pulse Resp B/P (MAP) Pulse Ox O2 Delivery O2 Flow Rate FiO2 10/18/19 16:00 61 10/18/19 16:00 97.1 75 20 102/69 (80) 92 10/18/19 12:00 97.1 62 20 126/60 (82) 92 10/18/19 12:00 59 10/18/19 09:17 125/71 10/18/19 09:00 Room Air 10/18/19 08:00 97.6 77 20 125/71 (89) 95 10/18/19 07:41 73 10/18/19 04:00 59 10/18/19 04:00 98.7 76 18 150/74 (99) 93 10/18/19 00:00 96.7 68 16 167/77 (107) 93 10/18/19 00:00 58 10/17/19 21:00 Room Air 10/17/19 20:00 52 10/17/19 20:00 96.7 66 16 134/78 (96) 99 I&O Intake and Output 10/17/19 10/18/19 18:59 06:59 Intake Total 400 ml Output Total 0 ml Balance 400 ml 0 ml IV Total 400 ml Stool Total 0 ml # Voids 4 1 Dressing: other Wound: other Drains: other Cardiovascular: RSR Respiratory: decreased breath sounds Abdomen: soft, non-tender, present bowel sounds Extremities: no cyanosis Laboratory Tests Test 10/18/19 06:40 White Blood Count 8.4 K/UL (4.8-10.8) Red Blood Count 3.78 M/UL (4.70-6.10) L Hemoglobin 11.3 G/DL (14.2-18.0) L Hematocrit 33.9 % (42.0-52.0) L Mean Corpuscular Volume 90 FL (80-99) Mean Corpuscular Hemoglobin 29.9 PG (27.0-31.0) Mean Corpuscular Hemoglobin Concent 33.3 G/DL (32.0-36.0) Red Cell Distribution Width 14.0 % (11.6-14.8) Platelet Count 128 K/UL (150-450) L Mean Platelet Volume 7.8 FL (6.5-10.1) Neutrophils (%) (Auto) 74.7 % (45.0-75.0) Lymphocytes (%) (Auto) 11.2 % (20.0-45.0) L Monocytes (%) (Auto) 8.7 % (1.0-10.0) Eosinophils (%) (Auto) 4.9 % (0.0-3.0) H Basophils (%) (Auto) 0.4 % (0.0-2.0) Sodium Level 145 MMOL/L (136-145) Potassium Level 4.6 MMOL/L (3.5-5.1) Chloride Level 111 MMOL/L (98-107) H Carbon Dioxide Level 30 MMOL/L (21-32) Anion Gap 4 mmol/L (5-15) L Blood Urea Nitrogen 34 mg/dL (7-18) H Creatinine 1.6 MG/DL (0.55-1.30) H Estimat Glomerular Filtration Rate 41.8 mL/min (>60) Glucose Level 104 MG/DL (74-106) # Calcium Level 8.9 MG/DL (8.5-10.1) Random Vancomycin Level 3.8 ug/mL Plan Problems: (1) Cellulitis and abscess of lower extremity Assessment & Plan: Patient presented admission with bilateral lower extremity edema and cellulitis. Right greater than left. On admission left side open to air with small wounds identified right side with significantly more edema erythema and multiple areas of skin breakdown. No purulent drainage. Serosanguineous oozing from the sites of open wounds. Tender on palpation no fluctuance no abscess identified. Patient states he has had for a few days now and feels is worsening. He has been receiving care with Silvadene in the nursing facility and says feels better improving. Labs reviewed and identified as above. No nausea vomiting fever chills. Will plan for continuation of care and close evaluation while in the hospital. Will need to monitor for potential abscess formation. IV antibiotics as per infectious disease. Keep lower extremities elevated. Patient not compliant with care at all times. Wash lower extremities daily normal saline or soap and water. Apply Silvadene followed by nonadherent dressing and Kerlix wrap. Perform daily and as needed saturation. Will follow with recommendations. Thank you for let me participate in patient's care patient okay but not always compliant with care plan cont abx will monitor Benyamini,Kumar October 18, 2019 18:17
--- NOTE | 2019-10-18 19:30 | General Progress Note ---
Assessment/Plan Problem List: (1) Hypernatremia ICD Codes: E87.0 - Hyperosmolality and hypernatremia SNOMED: 160449118 (2) CKD (chronic kidney disease) stage 3, GFR 30-59 ml/min ICD Codes: N18.3 - Chronic kidney disease, stage 3 (moderate) SNOMED: 568852322 (3) Dehydration ICD Codes: E86.0 - Dehydration SNOMED: 89224974 (4) Edin-tachy syndrome ICD Codes: I49.5 - Sick sinus syndrome SNOMED: 84141556 (5) Digoxin toxicity ICD Codes: T46.0X1A - Poisoning by cardiac-stimulant glycosides and drugs of similar action, accidental (unintentional), initial encounter SNOMED: 95348710 (6) Dehydration ICD Codes: E86.0 - Dehydration SNOMED: 48702289 (7) Weakness ICD Codes: R53.1 - Weakness SNOMED: 39694266 (8) A-fib ICD Codes: I48.91 - Unspecified atrial fibrillation SNOMED: 22911970 (9) Elevated troponin ICD Codes: R79.89 - Other specified abnormal findings of blood chemistry SNOMED: 710307458, 453455280, 835126587 (10) Parkinsonian syndrome ICD Codes: G20 - Parkinson's disease SNOMED: 35854021 (11) Schizophrenia ICD Codes: F20.9 - Schizophrenia, unspecified SNOMED: 93142347 (12) Falls frequently ICD Codes: R29.6 - Repeated falls SNOMED: 103593005 (13) Cellulitis and abscess of lower extremity ICD Codes: L03.119 - Cellulitis of unspecified part of limb; L02.419 - Cutaneous abscess of limb, unspecified SNOMED: 241383230 Assessment/Plan: empiric atb, hold dig and amiodorone, can dc iv fluids,restart lasix tele, wound care Subjective Constitutional: Reports: weakness HEENT: Reports: no symptoms Cardiovascular: Reports: irregular heart rate Respiratory: Reports: cough Gastrointestinal/Abdominal: Reports: no symptoms Genitourinary: Reports: incontinence Neurologic/Psychiatric: Reports: no symptoms Endocrine: Reports: no symptoms Hematologic/Lymphatic: Reports: no symptoms Allergies: Coded Allergies: No Known Allergies (Unverified , 08/25/12) Objective Last 24 Hour Vital Signs Date Time Temp Pulse Resp B/P (MAP) Pulse Ox O2 Delivery O2 Flow Rate FiO2 10/18/19 16:00 61 10/18/19 16:00 97.1 75 20 102/69 (80) 92 10/18/19 12:00 97.1 62 20 126/60 (82) 92 10/18/19 12:00 59 10/18/19 09:17 125/71 10/18/19 09:00 Room Air 10/18/19 08:00 97.6 77 20 125/71 (89) 95 10/18/19 07:41 73 10/18/19 04:00 59 10/18/19 04:00 98.7 76 18 150/74 (99) 93 10/18/19 00:00 96.7 68 16 167/77 (107) 93 10/18/19 00:00 58 10/17/19 21:00 Room Air 10/17/19 20:00 52 10/17/19 20:00 96.7 66 16 134/78 (96) 99 Intake and Output 10/17/19 10/18/19 19:00 07:00 Intake Total 400 ml Output Total 0 ml Balance 400 ml 0 ml IV Total 400 ml Stool Total 0 ml # Voids 4 1 Laboratory Tests 10/18/19 06:40: White Blood Count 8.4, Red Blood Count 3.78L, Hemoglobin 11.3L, Hematocrit 33.9L , Mean Corpuscular Volume 90, Mean Corpuscular Hemoglobin 29.9, Mean Corpuscular Hemoglobin Concent 33.3, Red Cell Distribution Width 14.0, Platelet Count 128L, Mean Platelet Volume 7.8, Neutrophils (%) (Auto) 74.7, Lymphocytes ( %) (Auto) 11.2L, Monocytes (%) (Auto) 8.7, Eosinophils (%) (Auto) 4.9H, Basophils (%) (Auto) 0.4, Sodium Level 145, Potassium Level 4.6, Chloride Level 111H, Carbon Dioxide Level 30, Anion Gap 4L, Blood Urea Nitrogen 34H, Creatinine 1.6H, Estimat Glomerular Filtration Rate 41.8, Glucose Level 104#, Calcium Level 8.9, Random Vancomycin Level 3.8 Height (Feet): 6 Height (Inches): 2.00 Weight (Pounds): 210 General Appearance: alert EENT: normal ENT inspection Neck: normal alignment Cardiovascular: regularly irregular Respiratory/Chest: rhonchi - bilaterally Abdomen: no organomegaly Edema: moderate edema Neurologic: horologist II-XII grossly normal Skin: other - cllulitis legs Noel Weldon MD October 18, 2019 19:30
[2019-10-18] MEDS: Furosemide 40mg tab ORAL SCH (20:36)
[2019-10-18] MEDS ORDERED: LORazepam Inj 2mg/ml 1ml IM PRN (23:15)
[2019-10-19] MEDS: Albuterol 90mcg Inhaler 8gm INH SCH ×6 (01:00→21:23)
--- NOTE | 2019-10-19 01:00 | Progress Note ---
DATE: 10/18/2019 SUBJECTIVE: Monitored rhythm AFib, rate is 44 to 78, no pauses. Patient without dizziness, chest pain, or shortness of breath. PHYSICAL EXAMINATION: VITAL SIGNS: Blood pressure 125/71 to 167/77. LUNGS: Bilateral breath sounds. No wheezing or rales. CARDIAC: Irregularly irregular rhythm. Normal S1, S2. A 1/6 systolic murmur at apex. ABDOMEN: Soft. EXTREMITIES: No edema. LABORATORY DATA: White count 8.4, hemoglobin 11.3, sodium 145, potassium 4.6, bicarb 30, BUN 34, creatinine 1.6. IMPRESSION: 1. Digoxin toxicity, improved. 2. Atrial fibrillation with slow ventricular response, recovering. Off digoxin and beta-blockade. 3. Acute renal failure, improved. 4. Acute on chronic diastolic congestive heart failure, compensated. 5. Dehydration and hypernatremia, improved. PLAN: 1. Continue to hold metoprolol and digitalis. 2. Continue cardiac monitoring. 3. Holding diuretics and angiotensin-converting enzyme inhibitors. 4. Recheck digoxin level. 5. Anticipate resuming beta-vicki as heart rate increases. May not need to continue digoxin in the future. We will reassess. Anibal Cheatham M.D. DR: TAYLOR JOB#: [id number] CC:
--- NOTE | 2019-10-19 02:30 | Consultation ---
DATE OF CONSULTATION: 10/18/2019 HISTORY OF PRESENT ILLNESS: This is an 79-year-old male with a history of multiple medical issues including chronic congestive heart failure, AFib, and schizophrenia who is being admitted to the hospital for medical stabilization. The patient weakness, coughing and he has AFib. The patient is unable to provide any meaningful information due to current mental status impairment. He is also awaiting for the imaging results. PAST PSYCHIATRIC HISTORY: Schizophrenia, currently now on psychotropic medication, is on aripiprazole. PAST MEDICAL HISTORY: Congestive heart failure, chronic kidney disease, Parkinson's syndrome. ALLERGIES: No known drug allergies. SUBSTANCE ABUSE HISTORY: No known history of illicit drug use or alcohol. MENTAL STATUS EXAMINATION: The patient is awake, oriented to self. Mood is neutral. Affect is flat. Thought process is concrete. Thought content, no suicidal or homicidal ideation. Cognition is impaired. Insight and judgment, impaired. ASSESSMENT: [place] I Schizophrenia. Dementia. [place] II Deferred. [place] III Rule out COVID-19. [place] IV Low. [place] V 20 PLAN: Continue the Abilify 5 mg in the morning. Ativan IM for agitation. Jigna Caputo M.D. DR: XIMENA JOB#: [id number] CC:
[2019-10-19] MEDS: Vancomycin 1 GM in NS 275 ML IVPB SCH ×2 (03:09→13:09)
[2019-10-19] MEDS: GlipiZIDE 5mg tab ORAL SCH ×2 (04:34→16:02)
[2019-10-19] MEDS: sitaGLIPtin 50mg tab ORAL SCH (04:34)
[2019-10-19] MEDS: NovoLOG Insulin Flexpen SUBQ SCH ×4 (04:51→21:00)
--- NOTE | 2019-10-19 07:47 | Pulmonology Progress Note ---
Subjective ROS Limited/Unobtainable: Yes Allergies: Coded Allergies: No Known Allergies (Unverified , 08/25/12) Subjective care noted off oxygen respiratory care noted no distress overnight Objective Last 24 Hour Vital Signs Date Time Temp Pulse Resp B/P (MAP) Pulse Ox O2 Delivery O2 Flow Rate FiO2 10/18/19 16:00 61 10/18/19 16:00 97.1 75 20 102/69 (80) 92 10/18/19 12:00 97.1 62 20 126/60 (82) 92 10/18/19 12:00 59 10/18/19 09:17 125/71 10/18/19 09:00 Room Air 10/18/19 08:00 97.6 77 20 125/71 (89) 95 Intake and Output 10/18/19 10/19/19 19:00 07:00 Intake Total 430 ml Balance 430 ml Intake Oral 430 ml # Voids 1 1 Objective GENERAL: Advanced age. NAD HEENT: Negative. NECK: Supple. LUNGS: Moderate breath sounds. Occasional rhonchi. no wheeze CARDIAC: S1, S2. Regular rate and rhythm without murmurs, rubs or gallops. ABDOMEN: Soft, nontender, nondistended. EXTREMITIES: No cyanosis, clubbing or edema. NEUROLOGIC: Grossly nonfocal. reviewed and edited Microbiology Date/Time Source Procedure Growth Status 10/16/19 14:07 Leg Right Gram Stain - Final Resulted 10/16/19 14:07 Wound Culture - Preliminary Gram Negative Bacillus 1 Resulted Current Medications Medications (Trade) Dose Ordered Sig/Bethany Route PRN Reason Start Time Stop Time Status Last Admin Dose Admin Acetaminophen (Tylenol) 650 mg Q4H PRN ORAL Mild Pain (Pain Scale 1-3) 10/15/19 20:15 11/14/19 20:14 Acetaminophen (Tylenol) 650 mg Q4H PRN ORAL Temp >100.5 10/15/19 20:30 11/14/19 20:29 Albuterol Sulfate (Proventil MDI) 2 puff Q4H INH 10/15/19 21:00 01/13/20 20:59 10/19/19 04:34 Apixaban (Eliquis) 2.5 mg Q12HR ORAL 10/15/19 21:00 01/13/20 20:59 10/18/19 20:35 Aripiprazole (Abilify) 5 mg DAILY ORAL 10/17/19 09:00 12/01/19 08:59 10/18/19 09:16 Atorvastatin Calcium (Lipitor) 10 mg BEDTIME ORAL 10/15/19 21:00 01/13/20 20:59 10/18/19 20:37 Dextrose (Dextrose 50%) 25 ml Q30M PRN IV Hypoglycemia 10/15/19 20:30 01/13/20 20:29 Dextrose (Dextrose 50%) 50 ml Q30M PRN IV Hypoglycemia 10/15/19 20:30 01/13/20 20:29 Doxycycline Monohydrate (Doxycycline Monohydrate) 100 mg EVERY 12 HOURS ORAL 10/15/19 21:00 10/22/19 20:59 10/18/19 20:35 Furosemide (Lasix) 40 mg EVERY 12 HOURS ORAL 10/18/19 21:00 11/17/19 20:59 10/18/19 20:36 Gabapentin (Neurontin) 100 mg TWICE A DAY ORAL 10/16/19 09:00 11/15/19 08:59 10/18/19 17:26 Glipizide (Glucotrol) 10 mg BIAC ORAL 10/16/19 06:30 11/15/19 06:29 10/19/19 04:34 Insulin Aspart (NovoLOG) BEFORE MEALS AND HS SUBQ 10/15/19 21:00 01/13/20 20:59 10/18/19 20:51 Lisinopril (ZestriL) 5 mg DAILY ORAL 10/16/19 09:00 11/15/19 08:59 10/18/19 09:17 Lorazepam (Ativan 2mg/ml 1ml) 1 mg Q4H PRN IM For Anxiety 10/18/19 23:15 10/25/19 23:14 Magnesium Hydroxide (Mom) 30 ml DAILY ORAL 10/16/19 09:00 11/15/19 08:59 10/18/19 09:16 Magnesium Hydroxide (Mom) 30 ml HSPRN PRN ORAL Constipation 10/15/19 20:15 11/14/19 20:14 Pantoprazole (Protonix) 40 mg ACBREAKFAST ORAL 10/16/19 06:30 11/15/19 06:29 10/19/19 04:33 Potassium Chloride (K-Dur) 20 meq TWICE A DAY ORAL 10/18/19 19:30 01/16/20 19:29 10/18/19 20:35 Silver Sulfadiazine (Silvadene Cream 25gm) 1 applic TWICE A DAY TOPIC 10/16/19 09:00 01/14/20 08:59 10/18/19 17:26 Sitagliptin Phosphate (Januvia) 50 mg ACBREAKFAST ORAL 10/16/19 06:30 11/15/19 06:29 10/19/19 04:34 Tamsulosin HCl (Flomax) 0.4 mg DAILY ORAL 10/16/19 09:00 11/15/19 08:59 10/18/19 09:17 Vancomycin HCl (Vanco rx to dose) 1 ea DAILY PRN MISC Per rx protocol 10/16/19 12:15 11/15/19 12:14 Vancomycin HCl 1 gm/Sodium Chloride 275 ml @ 183.708 mls/hr Q12H IVPB 10/18/19 11:00 10/23/19 10:59 10/19/19 03:09 Assessment/Plan Assessment/Plan IMPRESSION: negative COVID-related pneumonia, COPD, shortness of breath, noted anemia, digoxin toxicity, toxic metabolic encephalopathy. PLAN care noted and discussed with staff respiratory care/ minimal oxygen needs ID noted and cards reviewed off load as able encourage cough and monitor for atelectasis monitor imaging for change and clearing impression, plan, and exam edited and reviewed in detail care discussed with Corey Sanchez MD October 19, 2019 07:47
[2019-10-19 08:00] VITALS: BP 137/95
[2019-10-19 08:14] LABS: BASOPHILS % (AUTO) 0.5 % (0.0-2.0); EOSINOPHILS % (AUTO) 5.1 % (0.0-3.0); HEMATOCRIT 33.1 % (42.0-52.0); HEMOGLOBIN 11.1 G/DL (14.2-18.0); LYMPHOCYTES % (AUTO) 14.2 % (20.0-45.0); MEAN CORPUSCULAR VOLUME 90 FL (80-99); MONOCYTES % (AUTO) 10.9 % (1.0-10.0); NEUTROPHILS % (AUTO) 69.3 % (45.0-75.0); PLATELET COUNT 115 K/UL (150-450); RED CELL DISTRIBUTION WIDTH 14.1 % (11.6-14.8); WHITE BLOOD COUNT 9.1 K/UL (4.8-10.8)
[2019-10-19 08:40] LABS: ALANINE AMINOTRANSFERASE 30 U/L (12-78); ALBUMIN 2.9 G/DL (3.4-5.0); ALBUMIN/GLOBULIN RATIO 0.7 (1.0-2.7); ALKALINE PHOSPHATASE 76 U/L (46-116); ANION GAP 5 mmol/L (5-15); ASPARTATE AMINO TRANSFERASE 19 U/L (15-37); BILIRUBIN,TOTAL 0.6 MG/DL (0.2-1.0); BLOOD UREA NITROGEN 27 mg/dL (7-18); CALCIUM 8.9 MG/DL (8.5-10.1); CARBON DIOXIDE 33 MMOL/L (21-32); CHLORIDE 110 MMOL/L (98-107); CREATININE 1.5 MG/DL (0.55-1.30); POTASSIUM 4.1 MMOL/L (3.5-5.1); SODIUM 148 MMOL/L (136-145)
[2019-10-19] MEDS: Lisinopril 2.5mg tab ORAL SCH (09:02)
[2019-10-19] MEDS: Milk of Magnesia 30ml Ud ORAL SCH (09:03)
[2019-10-19] MEDS: Eliquis 2.5mg tablet ORAL SCH ×2 (09:03→21:23)
[2019-10-19] MEDS: Tamsulosin 0.4mg cap ORAL SCH (09:03)
[2019-10-19] MEDS: Furosemide 40mg tab ORAL SCH (09:03)
[2019-10-19] MEDS: Doxycycline Monohydrate 100mg ORAL SCH ×2 (09:03→21:22)
[2019-10-19 12:00] VITALS: BP 144/71
[2019-10-19 16:00] VITALS: BP 126/65
--- NOTE | 2019-10-19 16:30 | Surgery Progress Note ---
Surgery Progress Note Subjective Additional Comments afebrile, HD Stable labs okay exam stable no complaints Objective Last 24 Hour Vital Signs Date Time Temp Pulse Resp B/P (MAP) Pulse Ox O2 Delivery O2 Flow Rate FiO2 10/19/19 12:00 63 10/19/19 12:00 97.6 68 20 144/71 (95) 95 10/19/19 09:02 137/95 10/19/19 09:00 Room Air 10/19/19 08:00 97.5 75 20 137/95 (109) 95 10/19/19 08:00 80 10/19/19 04:00 64 10/19/19 00:00 64 10/18/19 21:00 Room Air 10/18/19 21:00 Room Air I&O Intake and Output 10/18/19 10/19/19 19:00 07:00 Intake Total 430 ml Balance 430 ml Intake Oral 430 ml # Voids 1 1 Dressing: dry Wound: clean Cardiovascular: RSR Respiratory: clear, decreased breath sounds Abdomen: soft, non-tender, present bowel sounds Extremities: edema, tenderness, no cyanosis, pulses, other Laboratory Tests Test 10/19/19 07:00 10/19/19 10:55 White Blood Count 9.1 K/UL (4.8-10.8) Red Blood Count 3.70 M/UL (4.70-6.10) L Hemoglobin 11.1 G/DL (14.2-18.0) L Hematocrit 33.1 % (42.0-52.0) L Mean Corpuscular Volume 90 FL (80-99) Mean Corpuscular Hemoglobin 30.1 PG (27.0-31.0) Mean Corpuscular Hemoglobin Concent 33.6 G/DL (32.0-36.0) Red Cell Distribution Width 14.1 % (11.6-14.8) Platelet Count 115 K/UL (150-450) L Mean Platelet Volume 7.3 FL (6.5-10.1) Neutrophils (%) (Auto) 69.3 % (45.0-75.0) Lymphocytes (%) (Auto) 14.2 % (20.0-45.0) L Monocytes (%) (Auto) 10.9 % (1.0-10.0) H Eosinophils (%) (Auto) 5.1 % (0.0-3.0) H Basophils (%) (Auto) 0.5 % (0.0-2.0) Sodium Level 148 MMOL/L (136-145) H Potassium Level 4.1 MMOL/L (3.5-5.1) Chloride Level 110 MMOL/L (98-107) H Carbon Dioxide Level 33 MMOL/L (21-32) H Anion Gap 5 mmol/L (5-15) Blood Urea Nitrogen 27 mg/dL (7-18) H Creatinine 1.5 MG/DL (0.55-1.30) H Estimat Glomerular Filtration Rate 45.0 mL/min (>60) Glucose Level 65 MG/DL (74-106) L Calcium Level 8.9 MG/DL (8.5-10.1) Magnesium Level 2.2 MG/DL (1.8-2.4) Total Bilirubin 0.6 MG/DL (0.2-1.0) Aspartate Amino Transf (AST/SGOT) 19 U/L (15-37) Alanine Aminotransferase (ALT/SGPT) 30 U/L (12-78) Alkaline Phosphatase 76 U/L (46-116) Pro-B-Type Natriuretic Peptide 988 pg/mL (0-125) H Total Protein 6.8 G/DL (6.4-8.2) Albumin 2.9 G/DL (3.4-5.0) L Globulin 3.9 g/dL Albumin/Globulin Ratio 0.7 (1.0-2.7) L Digoxin Level 1.7 NG/ML (0.5-2.0) Vancomycin Level Trough 9.3 ug/mL (5.0-12.0) Plan Problems: (1) Cellulitis and abscess of lower extremity Assessment & Plan: Patient presented admission with bilateral lower extremity edema and cellulitis. Right greater than left. On admission left side open to air with small wounds identified right side with significantly more edema erythema and multiple areas of skin breakdown. No purulent drainage. Serosanguineous oozing from the sites of open wounds. Tender on palpation no fluctuance no abscess identified. Patient states he has had for a few days now and feels is worsening. He has been receiving care with Silvadene in the nursing facility and says feels better improving. Labs reviewed and identified as above. No nausea vomiting fever chills. Will plan for continuation of care and close evaluation while in the hospital. Will need to monitor for potential abscess formation. IV antibiotics as per infectious disease. Keep lower extremities elevated. Patient not compliant with care at all times. Wash lower extremities daily normal saline or soap and water. Apply Silvadene followed by nonadherent dressing and Kerlix wrap. Perform daily and as needed saturation. Will follow with recommendations. Thank you for let me participate in patient's care patient okay but not always compliant with care plan cont abx will monitor Kumar Leonard October 19, 2019 16:30
--- NOTE | 2019-10-19 19:29 | General Progress Note ---
Assessment/Plan Problem List: (1) Hypernatremia ICD Codes: E87.0 - Hyperosmolality and hypernatremia SNOMED: 093994311 (2) CKD (chronic kidney disease) stage 3, GFR 30-59 ml/min ICD Codes: N18.3 - Chronic kidney disease, stage 3 (moderate) SNOMED: 116478597 (3) Dehydration ICD Codes: E86.0 - Dehydration SNOMED: 83957398 (4) Edin-tachy syndrome ICD Codes: I49.5 - Sick sinus syndrome SNOMED: 52000254 (5) Digoxin toxicity ICD Codes: T46.0X1A - Poisoning by cardiac-stimulant glycosides and drugs of similar action, accidental (unintentional), initial encounter SNOMED: 85304270 (6) Dehydration ICD Codes: E86.0 - Dehydration SNOMED: 46503932 (7) Weakness ICD Codes: R53.1 - Weakness SNOMED: 53477762 (8) A-fib ICD Codes: I48.91 - Unspecified atrial fibrillation SNOMED: 96665649 (9) Elevated troponin ICD Codes: R79.89 - Other specified abnormal findings of blood chemistry SNOMED: 969465920, 895751740, 639492160 (10) Parkinsonian syndrome ICD Codes: G20 - Parkinson's disease SNOMED: 45993844 (11) Schizophrenia ICD Codes: F20.9 - Schizophrenia, unspecified SNOMED: 78008218 (12) Falls frequently ICD Codes: R29.6 - Repeated falls SNOMED: 868484065 (13) Cellulitis and abscess of lower extremity ICD Codes: L03.119 - Cellulitis of unspecified part of limb; L02.419 - Cutaneous abscess of limb, unspecified SNOMED: 375595251 Assessment/Plan: empiric atb, shold dig and amiodorone, can dc iv fluids,restart lasix tele, wound care sxt added for enterobacter from skin, covid pend Subjective Constitutional: Reports: weakness HEENT: Reports: no symptoms Cardiovascular: Reports: irregular heart rate Respiratory: Reports: cough Gastrointestinal/Abdominal: Reports: no symptoms Genitourinary: Reports: incontinence Neurologic/Psychiatric: Reports: weakness Endocrine: Reports: no symptoms Allergies: Coded Allergies: No Known Allergies (Unverified , 08/25/12) Objective Last 24 Hour Vital Signs Date Time Temp Pulse Resp B/P (MAP) Pulse Ox O2 Delivery O2 Flow Rate FiO2 10/19/19 16:00 80 10/19/19 16:00 97.7 75 20 126/65 (85) 94 10/19/19 12:00 63 10/19/19 12:00 97.6 68 20 144/71 (95) 95 10/19/19 09:02 137/95 10/19/19 09:00 Room Air 10/19/19 08:00 97.5 75 20 137/95 (109) 95 10/19/19 08:00 80 10/19/19 04:00 64 10/19/19 00:00 64 10/18/19 21:00 Room Air 10/18/19 21:00 Room Air Intake and Output 10/18/19 10/19/19 19:00 07:00 Intake Total 430 ml Balance 430 ml Intake Oral 430 ml # Voids 1 1 Laboratory Tests 10/19/19 07:00: White Blood Count 9.1, Red Blood Count 3.70L, Hemoglobin 11.1L, Hematocrit 33.1L , Mean Corpuscular Volume 90, Mean Corpuscular Hemoglobin 30.1, Mean Corpuscular Hemoglobin Concent 33.6, Red Cell Distribution Width 14.1, Platelet Count 115L, Mean Platelet Volume 7.3, Neutrophils (%) (Auto) 69.3, Lymphocytes ( %) (Auto) 14.2L, Monocytes (%) (Auto) 10.9H, Eosinophils (%) (Auto) 5.1H, Basophils (%) (Auto) 0.5, Sodium Level 148H, Potassium Level 4.1, Chloride Level 110H, Carbon Dioxide Level 33H, Anion Gap 5, Blood Urea Nitrogen 27H, Creatinine 1.5H, Estimat Glomerular Filtration Rate 45.0, Glucose Level 65L, Calcium Level 8.9, Magnesium Level 2.2, Total Bilirubin 0.6, Aspartate Amino Transf (AST/SGOT) 19, Alanine Aminotransferase (ALT/SGPT) 30, Alkaline Phosphatase 76, Pro-B-Type Natriuretic Peptide 988H, Total Protein 6.8, Albumin 2.9L, Globulin 3.9, Albumin/Globulin Ratio 0.7L, Digoxin Level 1.7 10/19/19 10:55: Vancomycin Level Trough 9.3 Height (Feet): 6 Height (Inches): 2.00 Weight (Pounds): 210 General Appearance: no apparent distress, alert EENT: normal ENT inspection Neck: normal alignment Cardiovascular: normal rate, regularly irregular Respiratory/Chest: lungs clear Abdomen: non tender Edema: mild edema 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
[2019-10-19 20:00] VITALS: BP 127/61
[2019-10-19] MEDS: Bactrim-DS 1 tab ORAL SCH (21:22)
--- NOTE | 2019-10-19 23:39 | Psych Consult Progress Note ---
Psychiatry Progress Note Psychiatry Progress Note Medications Current Medications Medications (Trade) Dose Ordered Sig/Bethany Route PRN Reason Start Time Stop Time Status Last Admin Dose Admin Acetaminophen (Tylenol) 650 mg Q4H PRN ORAL Mild Pain (Pain Scale 1-3) 10/15/19 20:15 11/14/19 20:14 Acetaminophen (Tylenol) 650 mg Q4H PRN ORAL Temp >100.5 10/15/19 20:30 11/14/19 20:29 Albuterol Sulfate (Proventil MDI) 2 puff Q4H INH 10/15/19 21:00 01/13/20 20:59 10/19/19 21:23 Apixaban (Eliquis) 2.5 mg Q12HR ORAL 10/15/19 21:00 01/13/20 20:59 10/19/19 21:23 Aripiprazole (Abilify) 5 mg DAILY ORAL 10/17/19 09:00 12/01/19 08:59 10/19/19 09:03 Atorvastatin Calcium (Lipitor) 10 mg BEDTIME ORAL 10/15/19 21:00 01/13/20 20:59 10/19/19 21:22 Dextrose (Dextrose 50%) 25 ml Q30M PRN IV Hypoglycemia 10/15/19 20:30 01/13/20 20:29 Dextrose (Dextrose 50%) 50 ml Q30M PRN IV Hypoglycemia 10/15/19 20:30 01/13/20 20:29 Doxycycline Monohydrate (Doxycycline Monohydrate) 100 mg EVERY 12 HOURS ORAL 10/15/19 21:00 10/22/19 20:59 10/19/19 21:22 Furosemide (Lasix) 40 mg DAILY ORAL 10/20/19 09:00 11/19/19 08:59 Gabapentin (Neurontin) 100 mg TWICE A DAY ORAL 10/16/19 09:00 11/15/19 08:59 10/19/19 17:10 Glipizide (Glucotrol) 10 mg BIAC ORAL 10/16/19 06:30 11/15/19 06:29 10/19/19 16:02 Insulin Aspart (NovoLOG) BEFORE MEALS AND HS SUBQ 10/15/19 21:00 01/13/20 20:59 10/19/19 17:20 Lisinopril (ZestriL) 5 mg DAILY ORAL 10/16/19 09:00 11/15/19 08:59 10/19/19 09:02 Lorazepam (Ativan 2mg/ml 1ml) 1 mg Q4H PRN IM For Anxiety 10/18/19 23:15 10/25/19 23:14 Magnesium Hydroxide (Mom) 30 ml DAILY ORAL 10/16/19 09:00 11/15/19 08:59 10/19/19 09:03 Magnesium Hydroxide (Mom) 30 ml HSPRN PRN ORAL Constipation 10/15/19 20:15 11/14/19 20:14 Pantoprazole (Protonix) 40 mg ACBREAKFAST ORAL 10/16/19 06:30 11/15/19 06:29 10/19/19 04:33 Potassium Chloride (K-Dur) 20 meq TWICE A DAY ORAL 10/18/19 19:30 01/16/20 19:29 10/19/19 17:10 Silver Sulfadiazine (Silvadene Cream 25gm) 1 applic TWICE A DAY TOPIC 10/16/19 09:00 01/14/20 08:59 10/19/19 17:12 Sitagliptin Phosphate (Januvia) 50 mg ACBREAKFAST ORAL 10/16/19 06:30 11/15/19 06:29 10/19/19 04:34 Tamsulosin HCl (Flomax) 0.4 mg DAILY ORAL 10/16/19 09:00 11/15/19 08:59 10/19/19 09:03 Trimethoprim/ Sulfamethoxazole (Bactrim-DS) 1 tab Q12HR ORAL 10/19/19 21:00 10/26/19 20:59 10/19/19 21:22 Vancomycin HCl (Vanco rx to dose) 1 ea DAILY PRN MISC Per rx protocol 10/16/19 12:15 11/15/19 12:14 Vancomycin/Sodium Chloride 275 ml @ 183.333 mls/hr Q12H IVPB 10/19/19 23:00 10/24/19 22:59 Neurological/Psychiatric: Reports: anxiety, depressed, emotional problems Allergies: Coded Allergies: No Known Allergies (Unverified , 08/25/12) Objective Data Height (Feet): 6 Height (Inches): 2.00 Weight (Pounds): 210 General Appearance: alert Additional Comments: awake, oriented to self. Mood is neutral. Affect is flat. Thought process is concrete. Thought content, no suicidal or homicidal ideation. Cognition is impaired. Insight and judgment, impaired. ASSESSMENT: [place] I Schizophrenia. Dementia. [place] II Deferred. [place] III Rule out COVID-19. [place] IV Low. [place] V 20 PLAN: Continue the Abilify 5 mg in the morning. Ativan IM for agitation. Jigna Caputo MD October 19, 2019 23:39
--- NOTE | 2019-10-19 23:45 | Progress Note ---
DATE: 10/19/2019 CARDIOLOGY PROGRESS NOTE SUBJECTIVE: The patient is without any respiratory distress or chest pain. He has not had any new complaints. He is tolerating diet. There is no nausea or vomiting noted. He is compliant with staff. Monitor reveals atrial fibrillation. No pauses. Rates remained controlled in the range of 50 to 80. PHYSICAL EXAMINATION: VITAL SIGNS: Blood pressure 102/69, pulse 61, respiratory rate 20, and oxygen saturation on room air 95%. Afebrile. LUNGS: Clear with slightly diminished breath sounds. CARDIAC: Irregularly irregular. Normal S1 and S2. ABDOMEN: Soft. EXTREMITIES: There is no edema. LABORATORY DATA: White count 9.1 and hemoglobin 11.1. Digoxin level 1.7. Sodium 148, potassium 4.1, bicarb 33, BUN 27, creatinine 1.5. Pro-natriuretic peptide 988. Albumin 2.9. IMPRESSION: 1. Digoxin toxicity, resolved. 2. Atrial fibrillation, still with low range, but now controlled ventricular rate. 3. Acute renal failure, improving. 4. Acute on chronic diastolic congestive heart failure, clinically compensated. 5. Dehydration and hypernatremia, still persisting. 6. Moderate protein calorie malnutrition. PLAN: 1. Hold digoxin. 2. Reassess need for beta-vicki over the next 24 hours. 3. Nutritional support. 4. Continue hypotonic IV fluids. 5. Continue apixaban for cardioembolic prophylaxis. Anibal Cheatham M.D. DR: Yesenia JOB#: [id number] CC:
[2019-10-19] MEDS: Vancomycin 1.25gm/NS Premix IVPB SCH (23:46)
[2019-10-20] VITALS: BP 118/60
[2019-10-20] MEDS: Albuterol 90mcg Inhaler 8gm INH SCH ×6 (00:31→21:00)
[2019-10-20 04:00] VITALS: BP 131/63
[2019-10-20] MEDS: sitaGLIPtin 50mg tab ORAL SCH (06:00)
[2019-10-20] MEDS: GlipiZIDE 5mg tab ORAL SCH ×2 (06:02→16:47)
[2019-10-20] MEDS: NovoLOG Insulin Flexpen SUBQ SCH ×4 (06:30→21:00)
[2019-10-20 08:00] VITALS: BP 143/61
[2019-10-20 08:04] LABS: BLOOD UREA NITROGEN 22 mg/dL (7-18); CALCIUM 8.9 MG/DL (8.5-10.1); CARBON DIOXIDE 32 MMOL/L (21-32); CHLORIDE 110 MMOL/L (98-107); CREATININE 1.4 MG/DL (0.55-1.30)
[2019-10-20 08:17] LABS: POTASSIUM 4.5 MMOL/L (3.5-5.1); SODIUM 143 MMOL/L (136-145)
--- NOTE | 2019-10-20 08:33 | Pulmonology Progress Note ---
Subjective ROS Limited/Unobtainable: Yes Allergies: Coded Allergies: No Known Allergies (Unverified , 08/25/12) Subjective care noted remains off oxygen respiratory care noted no distress overnight Objective Last 24 Hour Vital Signs Date Time Temp Pulse Resp B/P (MAP) Pulse Ox O2 Delivery O2 Flow Rate FiO2 10/20/19 04:00 75 10/20/19 04:00 97.2 73 18 131/63 (85) 95 10/20/19 00:00 97.9 66 18 118/60 (79) 96 10/20/19 00:00 76 10/19/19 21:00 Room Air 10/19/19 20:00 97.5 76 19 127/61 (83) 97 10/19/19 20:00 65 10/19/19 16:00 80 10/19/19 16:00 97.7 75 20 126/65 (85) 94 10/19/19 12:00 63 10/19/19 12:00 97.6 68 20 144/71 (95) 95 10/19/19 09:02 137/95 10/19/19 09:00 Room Air Intake and Output 10/19/19 10/20/19 19:00 07:00 Intake Total 855 ml Balance 855 ml Intake Oral 430 ml IV Total 425 ml # Voids 5 3 Objective GENERAL: Advanced age. NAD HEENT: Negative. NECK: Supple. LUNGS: Moderate breath sounds. no rhonchi. no wheeze CARDIAC: S1, S2. Regular rate and rhythm without murmurs, rubs or gallops. ABDOMEN: Soft, nontender, nondistended. EXTREMITIES: No cyanosis, clubbing or edema. NEUROLOGIC: Grossly nonfocal. reviewed and edited Laboratory Tests 10/19/19 10:55: Vancomycin Level Trough 9.3 10/20/19 06:26: Sodium Level 143, Potassium Level 4.5, Chloride Level 110H, Carbon Dioxide Level 32, Blood Urea Nitrogen 22H, Creatinine 1.4H, Estimat Glomerular Filtration Rate 48.8, Glucose Level 100, Calcium Level 8.9 Current Medications Medications (Trade) Dose Ordered Sig/Bethany Route PRN Reason Start Time Stop Time Status Last Admin Dose Admin Acetaminophen (Tylenol) 650 mg Q4H PRN ORAL Mild Pain (Pain Scale 1-3) 10/15/19 20:15 11/14/19 20:14 Acetaminophen (Tylenol) 650 mg Q4H PRN ORAL Temp >100.5 10/15/19 20:30 11/14/19 20:29 Albuterol Sulfate (Proventil MDI) 2 puff Q4H INH 10/15/19 21:00 01/13/20 20:59 10/20/19 04:57 Apixaban (Eliquis) 2.5 mg Q12HR ORAL 10/15/19 21:00 01/13/20 20:59 10/19/19 21:23 Aripiprazole (Abilify) 5 mg DAILY ORAL 10/17/19 09:00 12/01/19 08:59 10/19/19 09:03 Atorvastatin Calcium (Lipitor) 10 mg BEDTIME ORAL 10/15/19 21:00 01/13/20 20:59 10/19/19 21:22 Dextrose (Dextrose 50%) 25 ml Q30M PRN IV Hypoglycemia 10/15/19 20:30 01/13/20 20:29 Dextrose (Dextrose 50%) 50 ml Q30M PRN IV Hypoglycemia 10/15/19 20:30 01/13/20 20:29 Doxycycline Monohydrate (Doxycycline Monohydrate) 100 mg EVERY 12 HOURS ORAL 10/15/19 21:00 10/22/19 20:59 10/19/19 21:22 Furosemide (Lasix) 40 mg DAILY ORAL 10/20/19 09:00 11/19/19 08:59 Gabapentin (Neurontin) 100 mg TWICE A DAY ORAL 10/16/19 09:00 11/15/19 08:59 10/19/19 17:10 Glipizide (Glucotrol) 10 mg BIAC ORAL 10/16/19 06:30 11/15/19 06:29 10/20/19 06:02 Insulin Aspart (NovoLOG) BEFORE MEALS AND HS SUBQ 10/15/19 21:00 01/13/20 20:59 10/19/19 17:20 Lisinopril (ZestriL) 5 mg DAILY ORAL 10/16/19 09:00 11/15/19 08:59 10/19/19 09:02 Lorazepam (Ativan 2mg/ml 1ml) 1 mg Q4H PRN IM For Anxiety 10/18/19 23:15 10/25/19 23:14 Magnesium Hydroxide (Mom) 30 ml DAILY ORAL 10/16/19 09:00 11/15/19 08:59 10/19/19 09:03 Magnesium Hydroxide (Mom) 30 ml HSPRN PRN ORAL Constipation 10/15/19 20:15 11/14/19 20:14 Pantoprazole (Protonix) 40 mg ACBREAKFAST ORAL 10/16/19 06:30 11/15/19 06:29 10/20/19 06:00 Potassium Chloride (K-Dur) 20 meq TWICE A DAY ORAL 10/18/19 19:30 01/16/20 19:29 10/19/19 17:10 Silver Sulfadiazine (Silvadene Cream 25gm) 1 applic TWICE A DAY TOPIC 10/16/19 09:00 01/14/20 08:59 10/19/19 17:12 Sitagliptin Phosphate (Januvia) 50 mg ACBREAKFAST ORAL 10/16/19 06:30 11/15/19 06:29 10/20/19 06:00 Tamsulosin HCl (Flomax) 0.4 mg DAILY ORAL 10/16/19 09:00 11/15/19 08:59 10/19/19 09:03 Trimethoprim/ Sulfamethoxazole (Bactrim-DS) 1 tab Q12HR ORAL 10/19/19 21:00 10/26/19 20:59 10/19/19 21:22 Vancomycin HCl (Vanco rx to dose) 1 ea DAILY PRN MISC Per rx protocol 10/16/19 12:15 11/15/19 12:14 Vancomycin/Sodium Chloride 275 ml @ 183.333 mls/hr Q12H IVPB 10/19/19 23:00 10/24/19 22:59 10/19/19 23:46 Assessment/Plan Assessment/Plan IMPRESSION: negative COVID-related pneumonia, COPD, shortness of breath, noted anemia, digoxin toxicity, toxic metabolic encephalopathy. PLAN care noted and discussed with staff respiratory care/ no oxygen needs ID noted and cards reviewed off load encourage cough and monitor for atelectasis and worsening congestion monitor imaging for change and clearing impression, plan, and exam edited and reviewed in detail care discussed with Corey Sanchez MD October 20, 2019 08:33
[2019-10-20] MEDS: Milk of Magnesia 30ml Ud ORAL SCH (09:00)
[2019-10-20] MEDS: Eliquis 2.5mg tablet ORAL SCH ×2 (09:02→22:56)
[2019-10-20] MEDS: Furosemide 40mg tab ORAL SCH (09:02)
[2019-10-20] MEDS: Bactrim-DS 1 tab ORAL SCH ×2 (09:02→22:55)
[2019-10-20] MEDS: Tamsulosin 0.4mg cap ORAL SCH (09:02)
[2019-10-20] MEDS: Doxycycline Monohydrate 100mg ORAL SCH ×2 (09:02→22:55)
[2019-10-20] MEDS: Lisinopril 2.5mg tab ORAL SCH (09:03)
[2019-10-20] MEDS: Vancomycin 1.25gm/NS Premix IVPB SCH ×2 (11:00→23:00)
[2019-10-20 12:00] VITALS: BP 135/60
--- NOTE | 2019-10-20 12:16 | Surgery Progress Note ---
Surgery Progress Note Subjective Additional Comments Micro noted MRSA cellulitis improved no n/v labs okay feels okay Objective Last 24 Hour Vital Signs Date Time Temp Pulse Resp B/P (MAP) Pulse Ox O2 Delivery O2 Flow Rate FiO2 10/20/19 09:03 131/63 10/20/19 08:36 Room Air 10/20/19 04:00 75 10/20/19 04:00 97.2 73 18 131/63 (85) 95 10/20/19 00:00 97.9 66 18 118/60 (79) 96 10/20/19 00:00 76 10/19/19 21:00 Room Air 10/19/19 20:00 97.5 76 19 127/61 (83) 97 10/19/19 20:00 65 10/19/19 16:00 80 10/19/19 16:00 97.7 75 20 126/65 (85) 94 I&O Intake and Output 10/19/19 10/20/19 19:00 07:00 Intake Total 855 ml Balance 855 ml Intake Oral 430 ml IV Total 425 ml # Voids 5 3 Dressing: saturated Wound: clean Cardiovascular: RSR Abdomen: non-tender, present bowel sounds Extremities: edema, no tenderness, no cyanosis, other Laboratory Tests Test 10/20/19 06:26 Sodium Level 143 MMOL/L (136-145) Potassium Level 4.5 MMOL/L (3.5-5.1) Chloride Level 110 MMOL/L (98-107) H Carbon Dioxide Level 32 MMOL/L (21-32) Blood Urea Nitrogen 22 mg/dL (7-18) H Creatinine 1.4 MG/DL (0.55-1.30) H Estimat Glomerular Filtration Rate 48.8 mL/min (>60) Glucose Level 100 MG/DL (74-106) Calcium Level 8.9 MG/DL (8.5-10.1) Plan Problems: (1) Cellulitis and abscess of lower extremity Assessment & Plan: Patient presented admission with bilateral lower extremity edema and cellulitis. Right greater than left. On admission left side open to air with small wounds identified right side with significantly more edema erythema and multiple areas of skin breakdown. No purulent drainage. Serosanguineous oozing from the sites of open wounds. Tender on palpation no fluctuance no abscess identified. Patient states he has had for a few days now and feels is worsening. He has been receiving care with Silvadene in the nursing facility and says feels better improving. Labs reviewed and identified as above. No nausea vomiting fever chills. Will plan for continuation of care and close evaluation while in the hospital. Will need to monitor for potential abscess formation. IV antibiotics as per infectious disease. Keep lower extremities elevated. Patient not compliant with care at all times. Wash lower extremities daily normal saline or soap and water. Apply Silvadene followed by nonadherent dressing and Kerlix wrap. Perform daily and as needed saturation. Will follow with recommendations. Thank you for let me participate in patient's care patient okay but not always compliant with care plan cont abx will monitor wound culture resulted MRSA abx per ID keep legs elevated no abscess noted. cont with current care plan (2) Suspected COVID-19 virus infection Assessment & Plan: 1. Elevation of the right hemidiaphragm. 2. Mild pulmonary vascular congestion. 3. Subsegmental atelectasis versus infiltrate in the medial right lung base. 4. Borderline cardiomegaly. pending Kumar Leonard October 20, 2019 12:16
[2019-10-20 16:00] VITALS: BP 128/69
--- NOTE | 2019-10-20 19:53 | General Progress Note ---
Assessment/Plan Problem List: (1) Hypernatremia ICD Codes: E87.0 - Hyperosmolality and hypernatremia SNOMED: 633156346 (2) CKD (chronic kidney disease) stage 3, GFR 30-59 ml/min ICD Codes: N18.3 - Chronic kidney disease, stage 3 (moderate) SNOMED: 542906210 (3) Dehydration ICD Codes: E86.0 - Dehydration SNOMED: 18889005 (4) Edin-tachy syndrome ICD Codes: I49.5 - Sick sinus syndrome SNOMED: 63407242 (5) Digoxin toxicity ICD Codes: T46.0X1A - Poisoning by cardiac-stimulant glycosides and drugs of similar action, accidental (unintentional), initial encounter SNOMED: 50601037 (6) Dehydration ICD Codes: E86.0 - Dehydration SNOMED: 49061349 (7) Weakness ICD Codes: R53.1 - Weakness SNOMED: 29464170 (8) A-fib ICD Codes: I48.91 - Unspecified atrial fibrillation SNOMED: 31650158 (9) Elevated troponin ICD Codes: R79.89 - Other specified abnormal findings of blood chemistry SNOMED: 013509550, 644765292, 136001730 (10) Parkinsonian syndrome ICD Codes: G20 - Parkinson's disease SNOMED: 10610996 (11) Schizophrenia ICD Codes: F20.9 - Schizophrenia, unspecified SNOMED: 45592365 (12) Falls frequently ICD Codes: R29.6 - Repeated falls SNOMED: 972866186 (13) Cellulitis and abscess of lower extremity ICD Codes: L03.119 - Cellulitis of unspecified part of limb; L02.419 - Cutaneous abscess of limb, unspecified SNOMED: 475796521 Assessment/Plan: empiric atb, shold dig and amiodorone, can dc iv fluids,restart lasix tele, wound care sxt added for enterobacter from skin, covid pend Subjective Constitutional: Reports: weakness HEENT: Reports: no symptoms Respiratory: Reports: cough Gastrointestinal/Abdominal: Reports: no symptoms Genitourinary: Reports: incontinence Neurologic/Psychiatric: Reports: pre-existing deficit Endocrine: Reports: no symptoms Hematologic/Lymphatic: Reports: no symptoms Allergies: Coded Allergies: No Known Allergies (Unverified , 08/25/12) Objective Last 24 Hour Vital Signs Date Time Temp Pulse Resp B/P (MAP) Pulse Ox O2 Delivery O2 Flow Rate FiO2 10/20/19 16:00 87 10/20/19 16:00 97.0 79 20 128/69 (88) 96 10/20/19 12:00 97.2 85 18 135/60 (85) 95 10/20/19 12:00 93 10/20/19 09:03 131/63 10/20/19 08:36 Room Air 10/20/19 08:00 81 10/20/19 08:00 97.5 76 20 143/61 (88) 96 10/20/19 04:00 75 10/20/19 04:00 97.2 73 18 131/63 (85) 95 10/20/19 00:00 97.9 66 18 118/60 (79) 96 10/20/19 00:00 76 10/19/19 21:00 Room Air 10/19/19 20:00 97.5 76 19 127/61 (83) 97 10/19/19 20:00 65 Intake and Output 10/19/19 10/20/19 19:00 07:00 Intake Total 855 ml Balance 855 ml Intake Oral 430 ml IV Total 425 ml # Voids 5 3 Laboratory Tests 10/20/19 06:26: Sodium Level 143, Potassium Level 4.5, Chloride Level 110H, Carbon Dioxide Level 32, Blood Urea Nitrogen 22H, Creatinine 1.4H, Estimat Glomerular Filtration Rate 48.8, Glucose Level 100, Calcium Level 8.9 Height (Feet): 6 Height (Inches): 2.00 Weight (Pounds): 210 General Appearance: no apparent distress EENT: normal ENT inspection Neck: normal alignment Cardiovascular: regularly irregular Respiratory/Chest: rhonchi - bilaterally Abdomen: soft Edema: mild edema 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
[2019-10-20 20:00] VITALS: BP 158/72
[2019-10-21] VITALS: BP 122/68
[2019-10-21] MEDS: Albuterol 90mcg Inhaler 8gm INH SCH ×6 (01:00→21:18)
--- NOTE | 2019-10-21 01:14 | Progress Note ---
DATE: 10/20/2019 HISTORY OF PRESENT ILLNESS: The patient in bed. No acute distress noted. Continues to be confused. Less agitated. The appetite is increased and he is eating better. MENTAL STATUS EXAMINATION: The patient is alert, oriented times self, place, disoriented to situation and date. Mood is neutral to anxious. Affect is flat. Thought process, there is a paucity of thought content. Thought content, no suicidal or homicidal ideation. Cognition is impaired. Insight and judgment is impaired. ASSESSMENT: 1. Schizophrenia. 2. Dementia. PLAN: 1. Abilify 5 mg in the morning. 2. Ativan p.r.n. 3. Continue to follow and readjust the medications. Jigna Caputo M.D. DR: TIA JOB#: [id number] CC:
[2019-10-21 04:00] VITALS: BP 136/65
[2019-10-21] MEDS: GlipiZIDE 5mg tab ORAL SCH ×2 (05:57→16:30)
[2019-10-21] MEDS: sitaGLIPtin 50mg tab ORAL SCH (05:57)
[2019-10-21] MEDS: NovoLOG Insulin Flexpen SUBQ SCH ×4 (05:58→21:00)
[2019-10-21 07:44] LABS: BASOPHILS % (AUTO) 0.7 % (0.0-2.0); EOSINOPHILS % (AUTO) 4.5 % (0.0-3.0); HEMOGLOBIN 10.7 G/DL (14.2-18.0); LYMPHOCYTES % (AUTO) 13.4 % (20.0-45.0); MEAN CORPUSCULAR VOLUME 88 FL (80-99); MONOCYTES % (AUTO) 10.2 % (1.0-10.0); NEUTROPHILS % (AUTO) 71.2 % (45.0-75.0); PLATELET COUNT 134 K/UL (150-450); RED BLOOD COUNT 3.61 M/UL (4.70-6.10); RED CELL DISTRIBUTION WIDTH 14.2 % (11.6-14.8); WHITE BLOOD COUNT 8.4 K/UL (4.8-10.8)
[2019-10-21 07:47] LABS: ANION GAP 5 mmol/L (5-15); BLOOD UREA NITROGEN 24 mg/dL (7-18); CALCIUM 8.3 MG/DL (8.5-10.1); CARBON DIOXIDE 29 MMOL/L (21-32); CHLORIDE 109 MMOL/L (98-107); CREATININE 1.4 MG/DL (0.55-1.30); POTASSIUM 5.8 MMOL/L (3.5-5.1); SODIUM 143 MMOL/L (136-145)
[2019-10-21 08:20] VITALS: BP 124/62
--- NOTE | 2019-10-21 08:32 | Pulmonology Progress Note ---
Subjective ROS Limited/Unobtainable: Yes Allergies: Coded Allergies: No Known Allergies (Unverified , 08/25/12) Subjective care noted remains off oxygen and stable respiratory care noted no distress overnight Objective Last 24 Hour Vital Signs Date Time Temp Pulse Resp B/P (MAP) Pulse Ox O2 Delivery O2 Flow Rate FiO2 10/21/19 08:25 Room Air 10/21/19 08:20 98.1 90 20 124/62 (82) 97 10/21/19 04:00 72 10/21/19 04:00 98.8 94 18 136/65 (88) 93 10/21/19 00:00 88 10/21/19 00:00 97.0 88 18 122/68 (86) 96 10/20/19 21:00 Room Air 10/20/19 20:00 78 10/20/19 20:00 97.5 76 19 158/72 (100) 99 10/20/19 16:00 87 10/20/19 16:00 97.0 79 20 128/69 (88) 96 10/20/19 12:00 97.2 85 18 135/60 (85) 95 10/20/19 12:00 93 10/20/19 09:03 131/63 10/20/19 08:36 Room Air Intake and Output 10/20/19 10/21/19 19:00 07:00 Intake Total 360 ml Balance 360 ml Intake Oral 360 ml # Voids 2 3 # Bowel Movements 1 1 Objective GENERAL: Advanced age. NAD HEENT: Negative. NECK: Supple. LUNGS: Moderate breath sounds. no rhonchi. no wheeze CARDIAC: S1, S2. Regular rate and rhythm without murmurs, rubs or gallops. ABDOMEN: Soft, nontender, nondistended. EXTREMITIES: No cyanosis, clubbing or edema. NEUROLOGIC: Grossly nonfocal. reviewed and edited Laboratory Tests 10/21/19 05:30: Sodium Level 143, Potassium Level 5.8H, Chloride Level 109H, Carbon Dioxide Level 29, Anion Gap 5, Blood Urea Nitrogen 24H, Creatinine 1.4H, Estimat Glomerular Filtration Rate 48.8, Glucose Level 72L, Calcium Level 8.3L 10/21/19 06:30: White Blood Count 8.4, Red Blood Count 3.61L, Hemoglobin 10.7L, Hematocrit 32.0L , Mean Corpuscular Volume 88, Mean Corpuscular Hemoglobin 29.7, Mean Corpuscular Hemoglobin Concent 33.6, Red Cell Distribution Width 14.2, Platelet Count 134L, Mean Platelet Volume 8.0, Neutrophils (%) (Auto) 71.2, Lymphocytes ( %) (Auto) 13.4L, Monocytes (%) (Auto) 10.2H, Eosinophils (%) (Auto) 4.5H, Basophils (%) (Auto) 0.7 Current Medications Medications (Trade) Dose Ordered Sig/Bethany Route PRN Reason Start Time Stop Time Status Last Admin Dose Admin Acetaminophen (Tylenol) 650 mg Q4H PRN ORAL Mild Pain (Pain Scale 1-3) 10/15/19 20:15 11/14/19 20:14 Acetaminophen (Tylenol) 650 mg Q4H PRN ORAL Temp >100.5 10/15/19 20:30 11/14/19 20:29 Albuterol Sulfate (Proventil MDI) 2 puff Q4H INH 10/15/19 21:00 01/13/20 20:59 10/21/19 05:00 Apixaban (Eliquis) 2.5 mg Q12HR ORAL 10/15/19 21:00 01/13/20 20:59 10/20/19 22:56 Aripiprazole (Abilify) 5 mg DAILY ORAL 10/17/19 09:00 12/01/19 08:59 10/20/19 09:02 Atorvastatin Calcium (Lipitor) 10 mg BEDTIME ORAL 10/15/19 21:00 01/13/20 20:59 10/20/19 22:56 Dextrose (Dextrose 50%) 25 ml Q30M PRN IV Hypoglycemia 10/15/19 20:30 01/13/20 20:29 Dextrose (Dextrose 50%) 50 ml Q30M PRN IV Hypoglycemia 10/15/19 20:30 01/13/20 20:29 Doxycycline Monohydrate (Doxycycline Monohydrate) 100 mg EVERY 12 HOURS ORAL 10/15/19 21:00 10/22/19 20:59 10/20/19 22:55 Furosemide (Lasix) 40 mg DAILY ORAL 10/20/19 09:00 11/19/19 08:59 10/20/19 09:02 Gabapentin (Neurontin) 100 mg TWICE A DAY ORAL 10/16/19 09:00 11/15/19 08:59 10/20/19 18:27 Glipizide (Glucotrol) 10 mg BIAC ORAL 10/16/19 06:30 11/15/19 06:29 10/21/19 05:57 Insulin Aspart (NovoLOG) BEFORE MEALS AND HS SUBQ 10/15/19 21:00 01/13/20 20:59 10/19/19 17:20 Lisinopril (ZestriL) 5 mg DAILY ORAL 10/16/19 09:00 11/15/19 08:59 10/20/19 09:03 Lorazepam (Ativan 2mg/ml 1ml) 1 mg Q4H PRN IM For Anxiety 10/18/19 23:15 10/25/19 23:14 Magnesium Hydroxide (Mom) 30 ml DAILY ORAL 10/16/19 09:00 11/15/19 08:59 10/19/19 09:03 Magnesium Hydroxide (Mom) 30 ml HSPRN PRN ORAL Constipation 10/15/19 20:15 11/14/19 20:14 Metoprolol Tartrate (Lopressor) 25 mg Q12HR ORAL 10/21/19 09:00 01/19/20 08:59 Pantoprazole (Protonix) 40 mg ACBREAKFAST ORAL 10/16/19 06:30 11/15/19 06:29 10/21/19 05:57 Potassium Chloride (K-Dur) 20 meq TWICE A DAY ORAL 10/18/19 19:30 01/16/20 19:29 10/20/19 18:27 Silver Sulfadiazine (Silvadene Cream 25gm) 1 applic TWICE A DAY TOPIC 10/16/19 09:00 01/14/20 08:59 10/20/19 18:26 Sitagliptin Phosphate (Januvia) 50 mg ACBREAKFAST ORAL 10/16/19 06:30 11/15/19 06:29 10/21/19 05:57 Tamsulosin HCl (Flomax) 0.4 mg DAILY ORAL 10/16/19 09:00 11/15/19 08:59 10/20/19 09:02 Trimethoprim/ Sulfamethoxazole (Bactrim-DS) 1 tab Q12HR ORAL 10/19/19 21:00 10/26/19 20:59 10/20/19 22:55 Vancomycin HCl (Vanco rx to dose) 1 ea DAILY PRN MISC Per rx protocol 10/16/19 12:15 11/15/19 12:14 Vancomycin/Sodium Chloride 275 ml @ 183.333 mls/hr Q12H IVPB 10/19/19 23:00 10/24/19 22:59 10/20/19 23:00 Assessment/Plan Assessment/Plan IMPRESSION: negative COVID-related pneumonia, COPD, shortness of breath, noted anemia, digoxin toxicity, toxic metabolic encephalopathy. PLAN care noted and discussed with staff respiratory care as is/ no oxygen needs ID noted and cards reviewed off load encourage cough and monitor for atelectasis and worsening congestion dc planning monitor imaging for change and clearing impression, plan, and exam edited and reviewed in detail care discussed with Corey Sanchez MD October 21, 2019 08:32
--- NOTE | 2019-10-21 08:59 | Progress Note ---
DATE: 10/20/2019 CARDIOLOGY PROGRESS NOTE SUBJECTIVE: No distress. Some congestion. No chest pain. Monitor atrial fibrillation with rate well controlled. No pauses. PHYSICAL EXAMINATION: LUNGS: Coarse breath sounds. No wheezing. CARDIAC: Irregularly irregular rhythm. Normal S1, S2. ABDOMEN: Soft. EXTREMITIES: No edema. LABORATORY DATA: BUN 22, creatinine 1.4, potassium 4.5, hemoglobin 11.1. IMPRESSION: 1. Digoxin toxicity resolved. 2. Acute and chronic diastolic congestive heart failure, improved. 3. Hyponatremia and dehydration, corrected. 4. Atrial fibrillation now with rate well controlled. 5. Acute myocardial ischemia and possible non-ST elevation infarction. PLAN: 1. Antimicrobials. 2. Respiratory hygiene. 3. Avoid positive fluid balance. 4. Maintenance diuretic dose. No need for digoxin. 5. beta-vicki therapy with hold parameter. 6. Continue apixaban for cardioembolic prophylaxis. Anibal Cheatham M.D. DR: KATIE JOB#: [id number] CC:
[2019-10-21] MEDS: Milk of Magnesia 30ml Ud ORAL SCH (09:00)
[2019-10-21] MEDS: Eliquis 2.5mg tablet ORAL SCH ×2 (09:11→21:19)
[2019-10-21] MEDS: Bactrim-DS 1 tab ORAL SCH ×2 (09:11→21:18)
[2019-10-21] MEDS: Tamsulosin 0.4mg cap ORAL SCH (09:11)
[2019-10-21] MEDS: Doxycycline Monohydrate 100mg ORAL SCH ×2 (09:11→21:19)
[2019-10-21] MEDS: Lisinopril 2.5mg tab ORAL SCH (09:12)
[2019-10-21] MEDS: Furosemide 40mg tab ORAL SCH (09:12)
[2019-10-21] MEDS: Vancomycin 1.25gm/NS Premix IVPB SCH ×2 (11:00→23:06)
--- NOTE | 2019-10-21 11:43 | Surgery Progress Note ---
Surgery Progress Note Subjective Additional Comments potassium noted. possible hemolyzed. bun/cr stable comfortable no n/v Objective Last 24 Hour Vital Signs Date Time Temp Pulse Resp B/P (MAP) Pulse Ox O2 Delivery O2 Flow Rate FiO2 10/21/19 09:12 90 124/62 10/21/19 09:12 124/62 10/21/19 08:25 Room Air 10/21/19 08:20 98.1 90 20 124/62 (82) 97 10/21/19 08:00 72 10/21/19 04:00 72 10/21/19 04:00 98.8 94 18 136/65 (88) 93 10/21/19 00:00 88 10/21/19 00:00 97.0 88 18 122/68 (86) 96 10/20/19 21:00 Room Air 10/20/19 20:00 78 10/20/19 20:00 97.5 76 19 158/72 (100) 99 10/20/19 16:00 87 10/20/19 16:00 97.0 79 20 128/69 (88) 96 10/20/19 12:00 97.2 85 18 135/60 (85) 95 10/20/19 12:00 93 I&O Intake and Output 10/20/19 10/21/19 19:00 07:00 Intake Total 360 ml Balance 360 ml Intake Oral 360 ml # Voids 2 3 # Bowel Movements 1 1 Dressing: dry Wound: clean Cardiovascular: RSR Respiratory: clear Abdomen: soft, non-tender, present bowel sounds Extremities: no cyanosis Laboratory Tests Test 10/21/19 05:30 10/21/19 06:30 10/21/19 09:50 Sodium Level 143 MMOL/L (136-145) Potassium Level 5.8 MMOL/L (3.5-5.1) H Chloride Level 109 MMOL/L (98-107) H Carbon Dioxide Level 29 MMOL/L (21-32) Anion Gap 5 mmol/L (5-15) Blood Urea Nitrogen 24 mg/dL (7-18) H Creatinine 1.4 MG/DL (0.55-1.30) H Estimat Glomerular Filtration Rate 48.8 mL/min (>60) Glucose Level 72 MG/DL (74-106) L Calcium Level 8.3 MG/DL (8.5-10.1) L White Blood Count 8.4 K/UL (4.8-10.8) Red Blood Count 3.61 M/UL (4.70-6.10) L Hemoglobin 10.7 G/DL (14.2-18.0) L Hematocrit 32.0 % (42.0-52.0) L Mean Corpuscular Volume 88 FL (80-99) Mean Corpuscular Hemoglobin 29.7 PG (27.0-31.0) Mean Corpuscular Hemoglobin Concent 33.6 G/DL (32.0-36.0) Red Cell Distribution Width 14.2 % (11.6-14.8) Platelet Count 134 K/UL (150-450) L Mean Platelet Volume 8.0 FL (6.5-10.1) Neutrophils (%) (Auto) 71.2 % (45.0-75.0) Lymphocytes (%) (Auto) 13.4 % (20.0-45.0) L Monocytes (%) (Auto) 10.2 % (1.0-10.0) H Eosinophils (%) (Auto) 4.5 % (0.0-3.0) H Basophils (%) (Auto) 0.7 % (0.0-2.0) Vancomycin Level Trough 15.1 ug/mL (5.0-12.0) H Plan Problems: (1) Cellulitis and abscess of lower extremity Assessment & Plan: Patient presented admission with bilateral lower extremity edema and cellulitis. Right greater than left. On admission left side open to air with small wounds identified right side with significantly more edema erythema and multiple areas of skin breakdown. No purulent drainage. Serosanguineous oozing from the sites of open wounds. Tender on palpation no fluctuance no abscess identified. Patient states he has had for a few days now and feels is worsening. He has been receiving care with Silvadene in the nursing facility and says feels better improving. Labs reviewed and identified as above. No nausea vomiting fever chills. Will plan for continuation of care and close evaluation while in the hospital. Will need to monitor for potential abscess formation. IV antibiotics as per infectious disease. Keep lower extremities elevated. Patient not compliant with care at all times. Wash lower extremities daily normal saline or soap and water. Apply Silvadene followed by nonadherent dressing and Kerlix wrap. Perform daily and as needed saturation. Will follow with recommendations. Thank you for let me participate in patient's care patient okay but not always compliant with care plan cont abx will monitor wound culture resulted MRSA abx per ID keep legs elevated no abscess noted. cont with current care plan (2) Suspected COVID-19 virus infection Assessment & Plan: 1. Elevation of the right hemidiaphragm. 2. Mild pulmonary vascular congestion. 3. Subsegmental atelectasis versus infiltrate in the medial right lung base. 4. Borderline cardiomegaly. pending Kumar Leonard October 21, 2019 11:43
[2019-10-21 12:00] VITALS: BP 128/68
--- NOTE | 2019-10-21 14:00 | Diagnostic Imaging Report ---
Indication: Shortness of breath Technique: One view of the chest Comparison: 10/18/2019 Findings: Interim development of hazy and reticular infiltrate in the right upper lobe. There is atelectasis and possibly some consolidation at the right lung base, somewhat increased from the prior exam. The left lung and pleural space are clear. The heart size is upper limits of normal. The aorta is tortuous and calcified. Impression: New/increased right upper lobe infiltrate, right basilar atelectasis/consolidation
[2019-10-21 15:42] VITALS: BP_SYST 122; BP_SYST 162; BP_DIAS 58; BP_DIAS 84
[2019-10-21 20:00] VITALS: BP 159/84
--- NOTE | 2019-10-21 20:40 | General Progress Note ---
Assessment/Plan Problem List: (1) Hypernatremia ICD Codes: E87.0 - Hyperosmolality and hypernatremia SNOMED: 646954411 (2) CKD (chronic kidney disease) stage 3, GFR 30-59 ml/min ICD Codes: N18.3 - Chronic kidney disease, stage 3 (moderate) SNOMED: 665619717 (3) Dehydration ICD Codes: E86.0 - Dehydration SNOMED: 35445429 (4) Edin-tachy syndrome ICD Codes: I49.5 - Sick sinus syndrome SNOMED: 84989668 (5) Digoxin toxicity ICD Codes: T46.0X1A - Poisoning by cardiac-stimulant glycosides and drugs of similar action, accidental (unintentional), initial encounter SNOMED: 10534502 (6) Dehydration ICD Codes: E86.0 - Dehydration SNOMED: 68057149 (7) Weakness ICD Codes: R53.1 - Weakness SNOMED: 05574859 (8) A-fib ICD Codes: I48.91 - Unspecified atrial fibrillation SNOMED: 16328512 (9) Elevated troponin ICD Codes: R79.89 - Other specified abnormal findings of blood chemistry SNOMED: 953575495, 778226106, 595643213 (10) Parkinsonian syndrome ICD Codes: G20 - Parkinson's disease SNOMED: 18683121 (11) Schizophrenia ICD Codes: F20.9 - Schizophrenia, unspecified SNOMED: 25353656 (12) Falls frequently ICD Codes: R29.6 - Repeated falls SNOMED: 452568187 (13) Cellulitis and abscess of lower extremity ICD Codes: L03.119 - Cellulitis of unspecified part of limb; L02.419 - Cutaneous abscess of limb, unspecified SNOMED: 772342186 Assessment/Plan: empiric atb, shold dig and amiodorone, can dc iv fluids,restart lasix tele, wound care sxt added for enterobacter from skin, covid pend,dc kcl metoprolol d/ w dr irwin Subjective Constitutional: Reports: weakness HEENT: Reports: no symptoms Cardiovascular: Reports: irregular heart rate Respiratory: Reports: cough Gastrointestinal/Abdominal: Reports: no symptoms Neurologic/Psychiatric: Reports: pre-existing deficit Endocrine: Reports: no symptoms Hematologic/Lymphatic: Reports: no symptoms Allergies: Coded Allergies: No Known Allergies (Unverified , 08/25/12) Objective Last 24 Hour Vital Signs Date Time Temp Pulse Resp B/P (MAP) Pulse Ox O2 Delivery O2 Flow Rate FiO2 10/21/19 16:00 79 10/21/19 15:42 98.1 84 18 122/58 (79) 100 10/21/19 12:00 76 10/21/19 12:00 98.3 93 20 128/68 (88) 92 10/21/19 09:12 90 124/62 10/21/19 09:12 124/62 10/21/19 08:25 Room Air 10/21/19 08:20 98.1 90 20 124/62 (82) 97 10/21/19 08:00 72 10/21/19 04:00 72 10/21/19 04:00 98.8 94 18 136/65 (88) 93 10/21/19 00:00 88 10/21/19 00:00 97.0 88 18 122/68 (86) 96 10/20/19 21:00 Room Air Intake and Output 10/20/19 10/21/19 19:00 07:00 Intake Total 360 ml Balance 360 ml Intake Oral 360 ml # Voids 2 3 # Bowel Movements 1 1 Laboratory Tests 10/21/19 05:30: Sodium Level 143, Potassium Level 5.8H, Chloride Level 109H, Carbon Dioxide Level 29, Anion Gap 5, Blood Urea Nitrogen 24H, Creatinine 1.4H, Estimat Glomerular Filtration Rate 48.8, Glucose Level 72L, Calcium Level 8.3L 10/21/19 06:30: White Blood Count 8.4, Red Blood Count 3.61L, Hemoglobin 10.7L, Hematocrit 32.0L , Mean Corpuscular Volume 88, Mean Corpuscular Hemoglobin 29.7, Mean Corpuscular Hemoglobin Concent 33.6, Red Cell Distribution Width 14.2, Platelet Count 134L, Mean Platelet Volume 8.0, Neutrophils (%) (Auto) 71.2, Lymphocytes ( %) (Auto) 13.4L, Monocytes (%) (Auto) 10.2H, Eosinophils (%) (Auto) 4.5H, Basophils (%) (Auto) 0.7 10/21/19 09:50: Vancomycin Level Trough 15.1H Height (Feet): 6 Height (Inches): 2.00 Weight (Pounds): 210 General Appearance: alert EENT: normal ENT inspection Neck: normal alignment Cardiovascular: regularly irregular Respiratory/Chest: rhonchi - bilaterally Abdomen: soft Edema: mild edema 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
--- NOTE | 2019-10-21 22:49 | Psych Consult Progress Note ---
Psychiatry Progress Note Psychiatry Progress Note Medications Current Medications Medications (Trade) Dose Ordered Sig/Bethany Route PRN Reason Start Time Stop Time Status Last Admin Dose Admin Acetaminophen (Tylenol) 650 mg Q4H PRN ORAL Mild Pain (Pain Scale 1-3) 10/15/19 20:15 11/14/19 20:14 Acetaminophen (Tylenol) 650 mg Q4H PRN ORAL Temp >100.5 10/15/19 20:30 11/14/19 20:29 Albuterol Sulfate (Proventil MDI) 2 puff Q4H INH 10/15/19 21:00 01/13/20 20:59 10/21/19 21:18 Apixaban (Eliquis) 2.5 mg Q12HR ORAL 10/15/19 21:00 01/13/20 20:59 10/21/19 21:19 Aripiprazole (Abilify) 5 mg DAILY ORAL 10/17/19 09:00 12/01/19 08:59 10/21/19 09:11 Atorvastatin Calcium (Lipitor) 10 mg BEDTIME ORAL 10/15/19 21:00 01/13/20 20:59 10/21/19 21:19 Dextrose (Dextrose 50%) 25 ml Q30M PRN IV Hypoglycemia 10/15/19 20:30 01/13/20 20:29 Dextrose (Dextrose 50%) 50 ml Q30M PRN IV Hypoglycemia 10/15/19 20:30 01/13/20 20:29 Doxycycline Monohydrate (Doxycycline Monohydrate) 100 mg EVERY 12 HOURS ORAL 10/15/19 21:00 10/22/19 20:59 10/21/19 21:19 Furosemide (Lasix) 40 mg DAILY ORAL 10/20/19 09:00 11/19/19 08:59 10/21/19 09:12 Gabapentin (Neurontin) 100 mg TWICE A DAY ORAL 10/16/19 09:00 11/15/19 08:59 10/21/19 18:01 Glipizide (Glucotrol) 10 mg BIAC ORAL 10/16/19 06:30 11/15/19 06:29 10/21/19 16:30 Insulin Aspart (NovoLOG) BEFORE MEALS AND HS SUBQ 10/15/19 21:00 01/13/20 20:59 10/19/19 17:20 Lisinopril (ZestriL) 5 mg DAILY ORAL 10/16/19 09:00 11/15/19 08:59 10/21/19 09:12 Lorazepam (Ativan 2mg/ml 1ml) 1 mg Q4H PRN IM For Anxiety 10/18/19 23:15 10/25/19 23:14 Magnesium Hydroxide (Mom) 30 ml DAILY ORAL 10/16/19 09:00 11/15/19 08:59 10/19/19 09:03 Magnesium Hydroxide (Mom) 30 ml HSPRN PRN ORAL Constipation 10/15/19 20:15 11/14/19 20:14 Metoprolol Tartrate (Lopressor) 25 mg Q12HR ORAL 10/21/19 09:00 01/19/20 08:59 10/21/19 21:23 Pantoprazole (Protonix) 40 mg ACBREAKFAST ORAL 10/16/19 06:30 11/15/19 06:29 10/21/19 05:57 Silver Sulfadiazine (Silvadene Cream 25gm) 1 applic TWICE A DAY TOPIC 10/16/19 09:00 01/14/20 08:59 10/21/19 18:01 Sitagliptin Phosphate (Januvia) 50 mg ACBREAKFAST ORAL 10/16/19 06:30 11/15/19 06:29 10/21/19 05:57 Tamsulosin HCl (Flomax) 0.4 mg DAILY ORAL 10/16/19 09:00 11/15/19 08:59 10/21/19 09:11 Trimethoprim/ Sulfamethoxazole (Bactrim-DS) 1 tab Q12HR ORAL 10/19/19 21:00 10/26/19 20:59 10/21/19 21:18 Vancomycin HCl (Vanco rx to dose) 1 ea DAILY PRN MISC Per rx protocol 10/16/19 12:15 11/15/19 12:14 Vancomycin/Sodium Chloride 275 ml @ 183.333 mls/hr Q12H IVPB 10/19/19 23:00 10/24/19 22:59 10/21/19 11:00 Neurological/Psychiatric: Reports: anxiety, depressed, emotional problems Allergies: Coded Allergies: No Known Allergies (Unverified , 08/25/12) Objective Data Height (Feet): 6 Height (Inches): 2.00 Weight (Pounds): 210 General Appearance: no apparent distress, alert Additional Comments: alert, oriented times self, place, disoriented to situation and date. Mood is neutral to anxious. Affect is flat. Thought process, there is a paucity of thought content. Thought content, no suicidal or homicidal ideation. Cognition is impaired. Insight and judgment is impaired. Assessment/Plan [place]: ASSESSMENT: 1. Schizophrenia. 2. Dementia. Assessment/Plan: PLAN: 1. Abilify 5 mg in the morning. 2. Ativan p.r.n. 3. Continue to follow and readjust the medications. Jigna Caputo MD October 21, 2019 22:49
[2019-10-22] VITALS: BP 156/86
[2019-10-22] MEDS: Albuterol 90mcg Inhaler 8gm INH SCH ×6 (01:00→21:00)
[2019-10-22 04:00] VITALS: BP 160/82
--- NOTE | 2019-10-22 04:30 | Progress Note ---
DATE: 10/21/2019 CARDIOLOGY PROGRESS NOTE SUBJECTIVE: The patient is more interactive. He does have more cough and congestion. His chest x-ray reveals a new right upper lobe infiltrate. Monitored rhythm, atrial fibrillation with rates in the 70s to 80s. PHYSICAL EXAMINATION: LUNGS: Rhonchi bilaterally. CARDIAC: Irregularly irregular rhythm. Normal S1 and S2. No new murmur. ABDOMEN: Soft. EXTREMITIES: Trace edema. LABORATORY DATA: White count 8.4 and hemoglobin 10.7. Sodium 143, potassium 5.8, BUN 24, and creatinine 1.4. IMPRESSION: 1. Digoxin toxicity, resolved. 2. Atrial fibrillation, chronic and failed therapy with amiodarone, now with adequate rate control. 3. Hypertensive heart disease with rising blood pressure trend. 4. Acute on chronic diastolic congestive heart failure, mostly compensated. 5. Healthcare-associated pneumonia, on therapies. PLAN: 1. Avoid digoxin for now. 2. Advanced beta-vicki. 3. Antimicrobials. 4. Respiratory hygiene. 5. Titrate anti-failure regimen. Anibal Cheatham M.D. DR: PETER JOB#: [id number] CC:
[2019-10-22] MEDS: NovoLOG Insulin Flexpen SUBQ SCH ×4 (06:30→21:00)
[2019-10-22] MEDS: sitaGLIPtin 50mg tab ORAL SCH (06:34)
[2019-10-22] MEDS: GlipiZIDE 5mg tab ORAL SCH ×2 (06:34→16:30)
[2019-10-22 07:31] LABS: BASOPHILS % (AUTO) 0.5 % (0.0-2.0); EOSINOPHILS % (AUTO) 3.9 % (0.0-3.0); HEMATOCRIT 36.6 % (42.0-52.0); HEMOGLOBIN 12.1 G/DL (14.2-18.0); MEAN CORPUSCULAR VOLUME 89 FL (80-99); MONOCYTES % (AUTO) 9.7 % (1.0-10.0); NEUTROPHILS % (AUTO) 72.9 % (45.0-75.0); PLATELET COUNT 132 K/UL (150-450); RED BLOOD COUNT 4.13 M/UL (4.70-6.10); RED CELL DISTRIBUTION WIDTH 14.4 % (11.6-14.8); WHITE BLOOD COUNT 9.8 K/UL (4.8-10.8)
[2019-10-22 07:51] LABS: ALANINE AMINOTRANSFERASE 25 U/L (12-78); ALBUMIN/GLOBULIN RATIO 0.7 (1.0-2.7); ALKALINE PHOSPHATASE 89 U/L (46-116); ANION GAP 7 mmol/L (5-15); ASPARTATE AMINO TRANSFERASE 18 U/L (15-37); BILIRUBIN,TOTAL 0.5 MG/DL (0.2-1.0); BLOOD UREA NITROGEN 24 mg/dL (7-18); CALCIUM 8.4 MG/DL (8.5-10.1); CARBON DIOXIDE 29 MMOL/L (21-32); CHLORIDE 105 MMOL/L (98-107); CREATININE 1.9 MG/DL (0.55-1.30); POTASSIUM 5.1 MMOL/L (3.5-5.1); SODIUM 141 MMOL/L (136-145)
[2019-10-22 08:00] VITALS: BP 114/66
[2019-10-22] MEDS: Metoprolol Tartrate 50mg tab ORAL SCH (09:06)
[2019-10-22] MEDS: Tamsulosin 0.4mg cap ORAL SCH (09:06)
[2019-10-22] MEDS: Milk of Magnesia 30ml Ud ORAL SCH (09:06)
[2019-10-22] MEDS: Lisinopril 10mg tab ORAL SCH (09:07)
[2019-10-22] MEDS: Doxycycline Monohydrate 100mg ORAL SCH (09:07)
[2019-10-22] MEDS: Eliquis 2.5mg tablet ORAL SCH (09:07)
[2019-10-22] MEDS: Bactrim-DS 1 tab ORAL SCH (09:07)
[2019-10-22] MEDS: Furosemide 40mg tab ORAL SCH (09:08)
--- NOTE | 2019-10-22 09:12 | Pulmonology Progress Note ---
Subjective ROS Limited/Unobtainable: Yes Allergies: Coded Allergies: No Known Allergies (Unverified , 08/25/12) Subjective care noted remains off oxygen and stable respiratory care noted ? oxygen desaturation per review CXR worse Objective Last 24 Hour Vital Signs Date Time Temp Pulse Resp B/P (MAP) Pulse Ox O2 Delivery O2 Flow Rate FiO2 10/22/19 09:07 114/66 10/22/19 09:06 75 114/66 10/22/19 08:00 97.9 75 20 114/66 (82) 94 10/22/19 04:00 69 10/22/19 04:00 97.8 74 20 160/82 (108) 74 10/22/19 00:00 64 10/22/19 00:00 97.6 72 19 156/86 (109) 72 10/21/19 21:23 75 159/84 10/21/19 21:00 Room Air 10/21/19 20:00 78 10/21/19 20:00 97.3 19 159/84 (109) 75 10/21/19 16:00 79 10/21/19 15:42 98.1 84 18 122/58 (79) 100 10/21/19 12:00 76 10/21/19 12:00 98.3 93 20 128/68 (88) 92 10/21/19 09:12 90 124/62 10/21/19 09:12 124/62 Intake and Output 10/21/19 10/22/19 19:00 07:00 Intake Total 840 ml Balance 840 ml Intake Oral 840 ml # Voids 4 Objective GENERAL: Advanced age. NAD HEENT: Negative. NECK: Supple. LUNGS: Moderate breath sounds. no rhonchi. no wheeze CARDIAC: S1, S2. Regular rate and rhythm without murmurs, rubs or gallops. ABDOMEN: Soft, nontender, nondistended. EXTREMITIES: No cyanosis, clubbing or edema. NEUROLOGIC: Grossly nonfocal. reviewed and edited Microbiology Date/Time Source Procedure Growth Status 10/20/19 18:00 Nasopharynx Coronavirus COVID-19 PCR ([facility]) - Final Complete Laboratory Tests 10/21/19 09:50: Vancomycin Level Trough 15.1H 10/22/19 06:53: White Blood Count 9.8, Red Blood Count 4.13L, Hemoglobin 12.1L, Hematocrit 36.6L , Mean Corpuscular Volume 89, Mean Corpuscular Hemoglobin 29.4, Mean Corpuscular Hemoglobin Concent 33.1, Red Cell Distribution Width 14.4, Platelet Count 132L, Mean Platelet Volume 7.3, Neutrophils (%) (Auto) 72.9, Lymphocytes ( %) (Auto) 13.0L, Monocytes (%) (Auto) 9.7, Eosinophils (%) (Auto) 3.9H, Basophils (%) (Auto) 0.5, Sodium Level 141, Potassium Level 5.1, Chloride Level 105, Carbon Dioxide Level 29, Anion Gap 7, Blood Urea Nitrogen 24H, Creatinine 1.9H, Estimat Glomerular Filtration Rate 34.3, Glucose Level 114H, Calcium Level 8.4L, Magnesium Level 2.2, Total Bilirubin 0.5, Aspartate Amino Transf ( AST/SGOT) 18, Alanine Aminotransferase (ALT/SGPT) 25, Alkaline Phosphatase 89, Pro-B-Type Natriuretic Peptide 381H, Total Protein 7.3, Albumin 3.0L, Globulin 4.3, Albumin/Globulin Ratio 0.7L Current Medications Medications (Trade) Dose Ordered Sig/Bethany Route PRN Reason Start Time Stop Time Status Last Admin Dose Admin Acetaminophen (Tylenol) 650 mg Q4H PRN ORAL Mild Pain (Pain Scale 1-3) 10/15/19 20:15 11/14/19 20:14 Acetaminophen (Tylenol) 650 mg Q4H PRN ORAL Temp >100.5 10/15/19 20:30 11/14/19 20:29 Albuterol Sulfate (Proventil MDI) 2 puff Q4H INH 10/15/19 21:00 01/13/20 20:59 10/22/19 09:08 Apixaban (Eliquis) 2.5 mg Q12HR ORAL 10/15/19 21:00 01/13/20 20:59 10/22/19 09:07 Aripiprazole (Abilify) 5 mg DAILY ORAL 10/17/19 09:00 12/01/19 08:59 10/22/19 09:07 Atorvastatin Calcium (Lipitor) 10 mg BEDTIME ORAL 10/15/19 21:00 01/13/20 20:59 10/21/19 21:19 Dextrose (Dextrose 50%) 25 ml Q30M PRN IV Hypoglycemia 10/15/19 20:30 01/13/20 20:29 Dextrose (Dextrose 50%) 50 ml Q30M PRN IV Hypoglycemia 10/15/19 20:30 01/13/20 20:29 Doxycycline Monohydrate (Doxycycline Monohydrate) 100 mg EVERY 12 HOURS ORAL 10/15/19 21:00 10/22/19 20:59 10/22/19 09:07 Furosemide (Lasix) 40 mg DAILY ORAL 10/20/19 09:00 11/19/19 08:59 10/22/19 09:08 Gabapentin (Neurontin) 100 mg TWICE A DAY ORAL 10/16/19 09:00 11/15/19 08:59 10/22/19 09:07 Glipizide (Glucotrol) 10 mg BIAC ORAL 10/16/19 06:30 11/15/19 06:29 10/22/19 06:34 Insulin Aspart (NovoLOG) BEFORE MEALS AND HS SUBQ 10/15/19 21:00 01/13/20 20:59 10/19/19 17:20 Lisinopril (ZestriL) 10 mg DAILY ORAL 10/22/19 09:00 11/21/19 08:59 10/22/19 09:07 Lorazepam (Ativan 2mg/ml 1ml) 1 mg Q4H PRN IM For Anxiety 10/18/19 23:15 10/25/19 23:14 Magnesium Hydroxide (Mom) 30 ml DAILY ORAL 10/16/19 09:00 11/15/19 08:59 10/22/19 09:06 Magnesium Hydroxide (Mom) 30 ml HSPRN PRN ORAL Constipation 10/15/19 20:15 11/14/19 20:14 Metoprolol Tartrate (Lopressor) 50 mg Q12HR ORAL 10/22/19 09:00 01/20/20 08:59 10/22/19 09:06 Pantoprazole (Protonix) 40 mg ACBREAKFAST ORAL 10/16/19 06:30 11/15/19 06:29 10/22/19 06:34 Silver Sulfadiazine (Silvadene Cream 25gm) 1 applic TWICE A DAY TOPIC 10/16/19 09:00 01/14/20 08:59 10/22/19 09:07 Sitagliptin Phosphate (Januvia) 50 mg ACBREAKFAST ORAL 10/16/19 06:30 11/15/19 06:29 10/22/19 06:34 Tamsulosin HCl (Flomax) 0.4 mg DAILY ORAL 10/16/19 09:00 11/15/19 08:59 10/22/19 09:06 Trimethoprim/ Sulfamethoxazole (Bactrim-DS) 1 tab Q12HR ORAL 10/19/19 21:00 10/26/19 20:59 10/22/19 09:07 Vancomycin HCl (Vanco rx to dose) 1 ea DAILY PRN MISC Per rx protocol 10/16/19 12:15 11/15/19 12:14 Vancomycin/Sodium Chloride 275 ml @ 183.333 mls/hr Q12H IVPB 10/19/19 23:00 10/24/19 22:59 10/21/19 23:06 Assessment/Plan Assessment/Plan IMPRESSION: negative COVID-related pneumonia, COPD, shortness of breath, noted anemia, digoxin toxicity, toxic metabolic encephalopathy. PLAN care noted monitor oxygen needs respiratory care as is/ repeat CXR with worsening infiltrate ID noted and cards reviewed off load encourage cough and monitor for atelectasis and worsening congestion dc planning on hold monitor imaging for change and clearing impression, plan, and exam edited and reviewed in detail care discussed with Corey Sanchez MD October 22, 2019 09:12
--- NOTE | 2019-10-22 11:23 | Surgery Progress Note ---
Surgery Progress Note Subjective Additional Comments CXR noted clinically looks okay labs Cr 1.9 LE edema improved Objective Last 24 Hour Vital Signs Date Time Temp Pulse Resp B/P (MAP) Pulse Ox O2 Delivery O2 Flow Rate FiO2 10/22/19 09:07 114/66 10/22/19 09:06 75 114/66 10/22/19 09:00 Room Air 10/22/19 08:00 97.9 75 20 114/66 (82) 94 10/22/19 08:00 72 10/22/19 04:00 69 10/22/19 04:00 97.8 74 20 160/82 (108) 74 10/22/19 00:00 64 10/22/19 00:00 97.6 72 19 156/86 (109) 72 10/21/19 21:23 75 159/84 10/21/19 21:00 Room Air 10/21/19 20:00 78 10/21/19 20:00 97.3 19 159/84 (109) 75 10/21/19 16:00 79 10/21/19 15:42 98.1 84 18 122/58 (79) 100 10/21/19 12:00 76 10/21/19 12:00 98.3 93 20 128/68 (88) 92 I&O Intake and Output 10/21/19 10/22/19 19:00 07:00 Intake Total 840 ml Balance 840 ml Intake Oral 840 ml # Voids 4 Dressing: dry Wound: clean Cardiovascular: RSR Respiratory: clear Abdomen: soft, non-tender, present bowel sounds Extremities: edema, no tenderness, no cyanosis Laboratory Tests Test 10/22/19 06:53 White Blood Count 9.8 K/UL (4.8-10.8) Red Blood Count 4.13 M/UL (4.70-6.10) L Hemoglobin 12.1 G/DL (14.2-18.0) L Hematocrit 36.6 % (42.0-52.0) L Mean Corpuscular Volume 89 FL (80-99) Mean Corpuscular Hemoglobin 29.4 PG (27.0-31.0) Mean Corpuscular Hemoglobin Concent 33.1 G/DL (32.0-36.0) Red Cell Distribution Width 14.4 % (11.6-14.8) Platelet Count 132 K/UL (150-450) L Mean Platelet Volume 7.3 FL (6.5-10.1) Neutrophils (%) (Auto) 72.9 % (45.0-75.0) Lymphocytes (%) (Auto) 13.0 % (20.0-45.0) L Monocytes (%) (Auto) 9.7 % (1.0-10.0) Eosinophils (%) (Auto) 3.9 % (0.0-3.0) H Basophils (%) (Auto) 0.5 % (0.0-2.0) Sodium Level 141 MMOL/L (136-145) Potassium Level 5.1 MMOL/L (3.5-5.1) Chloride Level 105 MMOL/L (98-107) Carbon Dioxide Level 29 MMOL/L (21-32) Anion Gap 7 mmol/L (5-15) Blood Urea Nitrogen 24 mg/dL (7-18) H Creatinine 1.9 MG/DL (0.55-1.30) H Estimat Glomerular Filtration Rate 34.3 mL/min (>60) Glucose Level 114 MG/DL (74-106) H Calcium Level 8.4 MG/DL (8.5-10.1) L Magnesium Level 2.2 MG/DL (1.8-2.4) Total Bilirubin 0.5 MG/DL (0.2-1.0) Aspartate Amino Transf (AST/SGOT) 18 U/L (15-37) Alanine Aminotransferase (ALT/SGPT) 25 U/L (12-78) Alkaline Phosphatase 89 U/L (46-116) Pro-B-Type Natriuretic Peptide 381 pg/mL (0-125) H Total Protein 7.3 G/DL (6.4-8.2) Albumin 3.0 G/DL (3.4-5.0) L Globulin 4.3 g/dL Albumin/Globulin Ratio 0.7 (1.0-2.7) L Plan Problems: (1) Cellulitis and abscess of lower extremity Assessment & Plan: Patient presented admission with bilateral lower extremity edema and cellulitis. Right greater than left. On admission left side open to air with small wounds identified right side with significantly more edema erythema and multiple areas of skin breakdown. No purulent drainage. Serosanguineous oozing from the sites of open wounds. Tender on palpation no fluctuance no abscess identified. Patient states he has had for a few days now and feels is worsening. He has been receiving care with Silvadene in the nursing facility and says feels better improving. Labs reviewed and identified as above. No nausea vomiting fever chills. Will plan for continuation of care and close evaluation while in the hospital. Will need to monitor for potential abscess formation. IV antibiotics as per infectious disease. Keep lower extremities elevated. Patient not compliant with care at all times. Wash lower extremities daily normal saline or soap and water. Apply Silvadene followed by nonadherent dressing and Kerlix wrap. Perform daily and as needed saturation. Will follow with recommendations. Thank you for let me participate in patient's care patient okay but not always compliant with care plan cont abx will monitor wound culture resulted MRSA abx per ID keep legs elevated no abscess noted. cont with current care plan (2) Suspected COVID-19 virus infection Assessment & Plan: 1. Elevation of the right hemidiaphragm. 2. Mild pulmonary vascular congestion. 3. Subsegmental atelectasis versus infiltrate in the medial right lung base. 4. Borderline cardiomegaly. pending Interim development of hazy and reticular infiltrate in the right upper lobe. There is atelectasis and possibly some consolidation at the right lung base, somewhat increased from the prior exam. The left lung and pleural space are clear. The heart size is upper limits of normal. The aorta is tortuous and calcified. Impression: New/increased right upper lobe infiltrate, right basilar atelectasis/consolidation On Abx Cont abx ID input Pulm input noted Kumar Leonard October 22, 2019 11:23
[2019-10-22 12:00] VITALS: BP 104/53
--- NOTE | 2019-10-22 12:42 | General Progress Note ---
Assessment/Plan Problem List: (1) Hypernatremia ICD Codes: E87.0 - Hyperosmolality and hypernatremia SNOMED: 207904967 (2) CKD (chronic kidney disease) stage 3, GFR 30-59 ml/min ICD Codes: N18.3 - Chronic kidney disease, stage 3 (moderate) SNOMED: 714222778 (3) Dehydration ICD Codes: E86.0 - Dehydration SNOMED: 15596794 (4) Edin-tachy syndrome ICD Codes: I49.5 - Sick sinus syndrome SNOMED: 29173317 (5) Digoxin toxicity ICD Codes: T46.0X1A - Poisoning by cardiac-stimulant glycosides and drugs of similar action, accidental (unintentional), initial encounter SNOMED: 05800714 (6) Dehydration ICD Codes: E86.0 - Dehydration SNOMED: 18580520 (7) Weakness ICD Codes: R53.1 - Weakness SNOMED: 54815398 (8) A-fib ICD Codes: I48.91 - Unspecified atrial fibrillation SNOMED: 43779397 (9) Elevated troponin ICD Codes: R79.89 - Other specified abnormal findings of blood chemistry SNOMED: 871937330, 071220793, 181492787 (10) Parkinsonian syndrome ICD Codes: G20 - Parkinson's disease SNOMED: 35311980 (11) Schizophrenia ICD Codes: F20.9 - Schizophrenia, unspecified SNOMED: 63863167 (12) Falls frequently ICD Codes: R29.6 - Repeated falls SNOMED: 058947141 (13) Cellulitis and abscess of lower extremity ICD Codes: L03.119 - Cellulitis of unspecified part of limb; L02.419 - Cutaneous abscess of limb, unspecified SNOMED: 039808893 Assessment/Plan: empiric atb, shold dig and amiodorone, can dc iv fluids,restart lasix tele, wound care sxt added for enterobacter from skin, covid neg cxr worse to repeat metoprolol d/w dr irwin Subjective Constitutional: Reports: weakness HEENT: Reports: no symptoms Cardiovascular: Reports: irregular heart rate Respiratory: Reports: cough, SOB with excertion Gastrointestinal/Abdominal: Reports: no symptoms Genitourinary: Reports: incontinence Neurologic/Psychiatric: Reports: pre-existing deficit Allergies: Coded Allergies: No Known Allergies (Unverified , 08/25/12) Objective Last 24 Hour Vital Signs Date Time Temp Pulse Resp B/P (MAP) Pulse Ox O2 Delivery O2 Flow Rate FiO2 10/22/19 09:07 114/66 10/22/19 09:06 75 114/66 10/22/19 09:00 Room Air 10/22/19 08:00 97.9 75 20 114/66 (82) 94 10/22/19 08:00 72 10/22/19 04:00 69 10/22/19 04:00 97.8 74 20 160/82 (108) 74 10/22/19 00:00 64 10/22/19 00:00 97.6 72 19 156/86 (109) 72 10/21/19 21:23 75 159/84 10/21/19 21:00 Room Air 10/21/19 20:00 78 10/21/19 20:00 97.3 19 159/84 (109) 75 10/21/19 16:00 79 10/21/19 15:42 98.1 84 18 122/58 (79) 100 Intake and Output 10/21/19 10/22/19 19:00 07:00 Intake Total 840 ml Balance 840 ml Intake Oral 840 ml # Voids 4 Laboratory Tests 10/22/19 06:53: White Blood Count 9.8, Red Blood Count 4.13L, Hemoglobin 12.1L, Hematocrit 36.6L , Mean Corpuscular Volume 89, Mean Corpuscular Hemoglobin 29.4, Mean Corpuscular Hemoglobin Concent 33.1, Red Cell Distribution Width 14.4, Platelet Count 132L, Mean Platelet Volume 7.3, Neutrophils (%) (Auto) 72.9, Lymphocytes ( %) (Auto) 13.0L, Monocytes (%) (Auto) 9.7, Eosinophils (%) (Auto) 3.9H, Basophils (%) (Auto) 0.5, Sodium Level 141, Potassium Level 5.1, Chloride Level 105, Carbon Dioxide Level 29, Anion Gap 7, Blood Urea Nitrogen 24H, Creatinine 1.9H, Estimat Glomerular Filtration Rate 34.3, Glucose Level 114H, Calcium Level 8.4L, Magnesium Level 2.2, Total Bilirubin 0.5, Aspartate Amino Transf ( AST/SGOT) 18, Alanine Aminotransferase (ALT/SGPT) 25, Alkaline Phosphatase 89, Pro-B-Type Natriuretic Peptide 381H, Total Protein 7.3, Albumin 3.0L, Globulin 4.3, Albumin/Globulin Ratio 0.7L Height (Feet): 6 Height (Inches): 2.00 Weight (Pounds): 259 General Appearance: no apparent distress, alert EENT: normal ENT inspection Neck: normal alignment Cardiovascular: regularly irregular Respiratory/Chest: rhonchi - bilaterally Abdomen: non tender Edema: mild edema Neurologic: pathology lab technician II-XII grossly normal Noel Weldon MD October 22, 2019 12:42
[2019-10-22 16:00] VITALS: BP 109/60
[2019-10-22 20:00] VITALS: BP 139/82
--- NOTE | 2019-10-22 22:51 | Psych Consult Progress Note ---
Psychiatry Progress Note Psychiatry Progress Note Subjective noncompliant irritable Medications Current Medications Medications (Trade) Dose Ordered Sig/Bethany Route PRN Reason Start Time Stop Time Status Last Admin Dose Admin Acetaminophen (Tylenol) 650 mg Q4H PRN ORAL Mild Pain (Pain Scale 1-3) 10/15/19 20:15 11/14/19 20:14 Acetaminophen (Tylenol) 650 mg Q4H PRN ORAL Temp >100.5 10/15/19 20:30 11/14/19 20:29 Albuterol Sulfate (Proventil MDI) 2 puff Q4H INH 10/15/19 21:00 01/13/20 20:59 10/22/19 13:15 Apixaban (Eliquis) 2.5 mg Q12HR ORAL 10/15/19 21:00 01/13/20 20:59 10/22/19 09:07 Aripiprazole (Abilify) 5 mg DAILY ORAL 10/17/19 09:00 12/01/19 08:59 10/22/19 09:07 Atorvastatin Calcium (Lipitor) 10 mg BEDTIME ORAL 10/15/19 21:00 01/13/20 20:59 10/21/19 21:19 Dextrose (Dextrose 50%) 25 ml Q30M PRN IV Hypoglycemia 10/15/19 20:30 01/13/20 20:29 Dextrose (Dextrose 50%) 50 ml Q30M PRN IV Hypoglycemia 10/15/19 20:30 01/13/20 20:29 Furosemide (Lasix) 40 mg DAILY ORAL 10/20/19 09:00 11/19/19 08:59 10/22/19 09:08 Gabapentin (Neurontin) 100 mg TWICE A DAY ORAL 10/16/19 09:00 11/15/19 08:59 10/22/19 09:07 Glipizide (Glucotrol) 10 mg BIAC ORAL 10/16/19 06:30 11/15/19 06:29 10/22/19 06:34 Insulin Aspart (NovoLOG) BEFORE MEALS AND HS SUBQ 10/15/19 21:00 01/13/20 20:59 10/19/19 17:20 Lisinopril (ZestriL) 10 mg DAILY ORAL 10/22/19 09:00 11/21/19 08:59 10/22/19 09:07 Lorazepam (Ativan 2mg/ml 1ml) 1 mg Q4H PRN IM For Anxiety 10/18/19 23:15 10/25/19 23:14 Magnesium Hydroxide (Mom) 30 ml DAILY ORAL 10/16/19 09:00 11/15/19 08:59 10/22/19 09:06 Magnesium Hydroxide (Mom) 30 ml HSPRN PRN ORAL Constipation 10/15/19 20:15 11/14/19 20:14 Metoprolol Tartrate (Lopressor) 50 mg Q12HR ORAL 10/22/19 09:00 01/20/20 08:59 10/22/19 09:06 Pantoprazole (Protonix) 40 mg ACBREAKFAST ORAL 10/16/19 06:30 11/15/19 06:29 10/22/19 06:34 Silver Sulfadiazine (Silvadene Cream 25gm) 1 applic TWICE A DAY TOPIC 10/16/19 09:00 01/14/20 08:59 10/22/19 18:00 Sitagliptin Phosphate (Januvia) 50 mg ACBREAKFAST ORAL 10/16/19 06:30 11/15/19 06:29 10/22/19 06:34 Tamsulosin HCl (Flomax) 0.4 mg DAILY ORAL 10/16/19 09:00 11/15/19 08:59 10/22/19 09:06 Trimethoprim/ Sulfamethoxazole (Bactrim-DS) 1 tab Q12HR ORAL 10/19/19 21:00 10/26/19 20:59 10/22/19 09:07 Vancomycin HCl (Vanco rx to dose) 1 ea DAILY PRN MISC Per rx protocol 10/16/19 12:15 11/15/19 12:14 Neurological/Psychiatric: Reports: anxiety, depressed, emotional problems Allergies: Coded Allergies: No Known Allergies (Unverified , 08/25/12) Objective Data Height (Feet): 6 Height (Inches): 2.00 Weight (Pounds): 259 General Appearance: WD/WN, no apparent distress, alert Additional Comments: alert, oriented times self, place, disoriented to situation and date. Mood is neutral to anxious. Affect is flat. Thought process, there is a paucity of thought content. Thought content, no suicidal or homicidal ideation. Cognition is impaired. Insight and judgment is impaired. Assessment/Plan Status: stable Assessment/Plan: PLAN: 1. Abilify 5 mg in the morning. 2. Ativan p.r.n. 3. Continue to follow and readjust the medications. Jigna Caputo MD October 22, 2019 22:51
[2019-10-23] VITALS: BP 132/89
[2019-10-23] MEDS: Eliquis 2.5mg tablet ORAL SCH ×2 (00:36→09:22)
[2019-10-23] MEDS: Metoprolol Tartrate 50mg tab ORAL SCH ×2 (00:36→09:00)
[2019-10-23] MEDS: Bactrim-DS 1 tab ORAL SCH ×2 (00:37→09:22)
[2019-10-23] MEDS: Albuterol 90mcg Inhaler 8gm INH SCH ×4 (01:00→13:14)
[2019-10-23 04:00] VITALS: BP 106/57
[2019-10-23] MEDS: sitaGLIPtin 50mg tab ORAL SCH (04:30)
[2019-10-23] MEDS: GlipiZIDE 5mg tab ORAL SCH (04:30)
--- NOTE | 2019-10-23 05:15 | Progress Note ---
DATE: 10/22/2019 CARDIOLOGY PROGRESS NOTE SUBJECTIVE: The patient remains off of digoxin and amiodarone. Atrial fibrillation remains rate controlled. PHYSICAL EXAMINATION: VITAL SIGNS: Blood pressure range to 160/82, oxygen saturation on room air variable. LUNGS: Coarse breath sounds, rhonchi. CARDIAC: Irregularly irregular rhythm. Normal S1 and S2. ABDOMEN: Soft. EXTREMITIES: No edema. LABORATORY DATA: White count 9.8, hemoglobin 12.1. Pro-natriuretic peptide down to 381. BUN 24, creatinine 1.9, potassium 5.1, sodium 141. IMPRESSION: 1. Healthcare-acquired pneumonia. 2. Digoxin toxicity, resolved. 3. Chronic atrial fibrillation, rate controlled. 4. Acute renal failure, worsening. PLAN: 1. Antimicrobials. 2. Continue current beta-vicki dosing. 3. No plan for amiodarone or digoxin presently. 4. Cardioembolic prophylaxis with Apixaban. 5. We will hold diuretic for now in view of worsening renal parameters. Anibal Cheatham M.D. DR: JEREMY JOB#: [id number] CC:
[2019-10-23] MEDS: NovoLOG Insulin Flexpen SUBQ SCH ×2 (06:30→11:30)
[2019-10-23 07:27] LABS: BASOPHILS % (AUTO) 0.8 % (0.0-2.0); EOSINOPHILS % (AUTO) 4.8 % (0.0-3.0); HEMATOCRIT 33.4 % (42.0-52.0); LYMPHOCYTES % (AUTO) 13.2 % (20.0-45.0); MEAN CORPUSCULAR VOLUME 90 FL (80-99); NEUTROPHILS % (AUTO) 69.2 % (45.0-75.0); PLATELET COUNT 118 K/UL (150-450); RED BLOOD COUNT 3.69 M/UL (4.70-6.10); RED CELL DISTRIBUTION WIDTH 14.2 % (11.6-14.8); WHITE BLOOD COUNT 8.6 K/UL (4.8-10.8)
[2019-10-23 07:49] LABS: ANION GAP 5 mmol/L (5-15); BLOOD UREA NITROGEN 34 mg/dL (7-18); CALCIUM 8.5 MG/DL (8.5-10.1); CARBON DIOXIDE 30 MMOL/L (21-32); CHLORIDE 109 MMOL/L (98-107); CREATININE 2.2 MG/DL (0.55-1.30); POTASSIUM 5.6 MMOL/L (3.5-5.1); SODIUM 144 MMOL/L (136-145)
[2019-10-23 08:00] VITALS: BP 100/54
--- NOTE | 2019-10-23 08:55 | Pulmonology Progress Note ---
Subjective ROS Limited/Unobtainable: Yes Allergies: Coded Allergies: No Known Allergies (Unverified , 08/25/12) Subjective care noted remains off oxygen respiratory care noted CXR worse Objective Last 24 Hour Vital Signs Date Time Temp Pulse Resp B/P (MAP) Pulse Ox O2 Delivery O2 Flow Rate FiO2 10/23/19 08:00 97.9 60 18 100/54 (69) 91 10/23/19 04:00 60 10/23/19 04:00 97.5 88 18 106/57 (73) 96 10/23/19 00:36 88 137/89 10/23/19 00:00 97.7 88 19 132/89 (103) 91 10/23/19 00:00 65 10/22/19 21:00 Room Air 10/22/19 20:00 97.6 89 19 139/82 (101) 92 10/22/19 20:00 64 10/22/19 16:00 97.7 75 20 109/60 (76) 93 10/22/19 16:00 71 10/22/19 12:00 69 10/22/19 12:00 98.2 72 20 104/53 (70) 93 10/22/19 09:07 114/66 10/22/19 09:06 75 114/66 10/22/19 09:00 Room Air Intake and Output 10/22/19 10/23/19 19:00 07:00 Intake Total 570 ml Balance 570 ml Intake Oral 570 ml # Voids 3 3 # Bowel Movements 1 Objective GENERAL: Advanced age. NAD HEENT: Negative. NECK: Supple. LUNGS: Moderate breath sounds. no rhonchi. no wheeze CARDIAC: S1, S2. Regular rate and rhythm without murmurs, rubs or gallops. ABDOMEN: Soft, nontender, nondistended. EXTREMITIES: No cyanosis, clubbing or edema. NEUROLOGIC: Grossly nonfocal. reviewed and edited Microbiology Date/Time Source Procedure Growth Status 10/20/19 18:00 Nasopharynx Coronavirus COVID-19 PCR ([facility]) - Final Complete Laboratory Tests 10/23/19 06:29: White Blood Count 8.6, Red Blood Count 3.69L, Hemoglobin 11.0L, Hematocrit 33.4L , Mean Corpuscular Volume 90, Mean Corpuscular Hemoglobin 29.8, Mean Corpuscular Hemoglobin Concent 33.0, Red Cell Distribution Width 14.2, Platelet Count 118L, Mean Platelet Volume 7.4, Neutrophils (%) (Auto) 69.2, Lymphocytes ( %) (Auto) 13.2L, Monocytes (%) (Auto) 12.0H, Eosinophils (%) (Auto) 4.8H, Basophils (%) (Auto) 0.8, Sodium Level 144, Potassium Level 5.6H, Chloride Level 109H, Carbon Dioxide Level 30, Anion Gap 5, Blood Urea Nitrogen 34H, Creatinine 2.2H, Estimat Glomerular Filtration Rate 28.9, Glucose Level 115H, Calcium Level 8.5, Random Vancomycin Level 13.8 Current Medications Medications (Trade) Dose Ordered Sig/Bethany Route PRN Reason Start Time Stop Time Status Last Admin Dose Admin Acetaminophen (Tylenol) 650 mg Q4H PRN ORAL Mild Pain (Pain Scale 1-3) 10/15/19 20:15 11/14/19 20:14 Acetaminophen (Tylenol) 650 mg Q4H PRN ORAL Temp >100.5 10/15/19 20:30 11/14/19 20:29 Albuterol Sulfate (Proventil MDI) 2 puff Q4H INH 10/15/19 21:00 01/13/20 20:59 10/23/19 04:20 Apixaban (Eliquis) 2.5 mg Q12HR ORAL 10/15/19 21:00 01/13/20 20:59 10/23/19 00:36 Aripiprazole (Abilify) 5 mg DAILY ORAL 10/17/19 09:00 12/01/19 08:59 10/22/19 09:07 Atorvastatin Calcium (Lipitor) 10 mg BEDTIME ORAL 10/15/19 21:00 01/13/20 20:59 10/23/19 00:35 Dextrose (Dextrose 50%) 25 ml Q30M PRN IV Hypoglycemia 10/15/19 20:30 01/13/20 20:29 Dextrose (Dextrose 50%) 50 ml Q30M PRN IV Hypoglycemia 10/15/19 20:30 01/13/20 20:29 Gabapentin (Neurontin) 100 mg TWICE A DAY ORAL 10/16/19 09:00 11/15/19 08:59 10/22/19 09:07 Glipizide (Glucotrol) 10 mg BIAC ORAL 10/16/19 06:30 11/15/19 06:29 10/23/19 04:30 Insulin Aspart (NovoLOG) BEFORE MEALS AND HS SUBQ 10/15/19 21:00 01/13/20 20:59 10/19/19 17:20 Lisinopril (ZestriL) 10 mg DAILY ORAL 10/22/19 09:00 11/21/19 08:59 10/22/19 09:07 Lorazepam (Ativan 2mg/ml 1ml) 1 mg Q4H PRN IM For Anxiety 10/18/19 23:15 10/25/19 23:14 Magnesium Hydroxide (Mom) 30 ml DAILY ORAL 10/16/19 09:00 11/15/19 08:59 10/22/19 09:06 Magnesium Hydroxide (Mom) 30 ml HSPRN PRN ORAL Constipation 10/15/19 20:15 11/14/19 20:14 Metoprolol Tartrate (Lopressor) 50 mg Q12HR ORAL 10/22/19 09:00 01/20/20 08:59 10/23/19 00:36 Pantoprazole (Protonix) 40 mg ACBREAKFAST ORAL 10/16/19 06:30 11/15/19 06:29 10/23/19 04:30 Silver Sulfadiazine (Silvadene Cream 25gm) 1 applic TWICE A DAY TOPIC 10/16/19 09:00 01/14/20 08:59 10/22/19 18:00 Sitagliptin Phosphate (Januvia) 50 mg ACBREAKFAST ORAL 10/16/19 06:30 11/15/19 06:29 10/23/19 04:30 Tamsulosin HCl (Flomax) 0.4 mg DAILY ORAL 10/16/19 09:00 11/15/19 08:59 10/22/19 09:06 Trimethoprim/ Sulfamethoxazole (Bactrim-DS) 1 tab Q12HR ORAL 10/19/19 21:00 10/26/19 20:59 10/23/19 00:37 Vancomycin HCl (Vanco rx to dose) 1 ea DAILY PRN MISC Per rx protocol 10/16/19 12:15 11/15/19 12:14 Vancomycin/Sodium Chloride 275 ml @ 183.333 mls/hr ONCE ONCE IVPB 10/23/19 10:00 10/23/19 11:29 Assessment/Plan Assessment/Plan IMPRESSION: negative COVID-related pneumonia, COPD, shortness of breath, noted anemia, digoxin toxicity, toxic metabolic encephalopathy. PLAN care noted monitor oxygen needs respiratory care as is/ repeat CXR today and comment ID noted and cards reviewed off load encourage cough and monitor for atelectasis and worsening congestion dc planning pending reevaluation monitor imaging for change and clearing impression, plan, and exam edited and reviewed in detail care discussed with RN Corey Fay MD October 23, 2019 08:55
[2019-10-23] MEDS: Lisinopril 10mg tab ORAL SCH (09:00)
[2019-10-23] MEDS: Tamsulosin 0.4mg cap ORAL SCH (09:22)
[2019-10-23] MEDS: Milk of Magnesia 30ml Ud ORAL SCH (09:22)
[2019-10-23] MEDS ORDERED: Vancomycin 1.25gm/NS Premix IVPB ONE (10:00)
[2019-10-23 12:00] VITALS: BP 100/56
[2019-10-23] MEDS ORDERED: FUROSEMIDE40 MG ORAL (12:19)
[2019-10-23] MEDS ORDERED: METOPROLOL TART50 MG ORAL (12:19)
[2019-10-23] MEDS ORDERED: ELIQUIS2.5 MG ORAL (12:19)
[2019-10-23] MEDS ORDERED: BACTRIM-DS1 EA ORAL (12:19)
--- NOTE | 2019-10-23 19:38 | Surgery Progress Note ---
Surgery Progress Note Subjective Additional Comments late entry d/c plan for today wounds much improved cellulitis resolved cont with outpt wound care Objective Last 24 Hour Vital Signs Date Time Temp Pulse Resp B/P (MAP) Pulse Ox O2 Delivery O2 Flow Rate FiO2 10/23/19 12:00 97.9 63 20 100/56 (71) 95 10/23/19 11:45 62 10/23/19 09:00 Room Air 10/23/19 09:00 60 100/54 10/23/19 09:00 100/54 10/23/19 08:15 65 10/23/19 08:00 97.9 60 18 100/54 (69) 91 10/23/19 04:00 60 10/23/19 04:00 97.5 88 18 106/57 (73) 96 10/23/19 00:36 88 137/89 10/23/19 00:00 97.7 88 19 132/89 (103) 91 10/23/19 00:00 65 10/22/19 21:00 Room Air 10/22/19 20:00 97.6 89 19 139/82 (101) 92 10/22/19 20:00 64 I&O Intake and Output 10/22/19 10/23/19 19:00 07:00 Intake Total 570 ml Balance 570 ml Intake Oral 570 ml # Voids 3 3 # Bowel Movements 1 Dressing: dry Wound: clean Cardiovascular: RSR Respiratory: clear Abdomen: soft Extremities: no edema, no tenderness, no cyanosis Laboratory Tests Test 10/23/19 06:29 White Blood Count 8.6 K/UL (4.8-10.8) Red Blood Count 3.69 M/UL (4.70-6.10) L Hemoglobin 11.0 G/DL (14.2-18.0) L Hematocrit 33.4 % (42.0-52.0) L Mean Corpuscular Volume 90 FL (80-99) Mean Corpuscular Hemoglobin 29.8 PG (27.0-31.0) Mean Corpuscular Hemoglobin Concent 33.0 G/DL (32.0-36.0) Red Cell Distribution Width 14.2 % (11.6-14.8) Platelet Count 118 K/UL (150-450) L Mean Platelet Volume 7.4 FL (6.5-10.1) Neutrophils (%) (Auto) 69.2 % (45.0-75.0) Lymphocytes (%) (Auto) 13.2 % (20.0-45.0) L Monocytes (%) (Auto) 12.0 % (1.0-10.0) H Eosinophils (%) (Auto) 4.8 % (0.0-3.0) H Basophils (%) (Auto) 0.8 % (0.0-2.0) Sodium Level 144 MMOL/L (136-145) Potassium Level 5.6 MMOL/L (3.5-5.1) H Chloride Level 109 MMOL/L (98-107) H Carbon Dioxide Level 30 MMOL/L (21-32) Anion Gap 5 mmol/L (5-15) Blood Urea Nitrogen 34 mg/dL (7-18) H Creatinine 2.2 MG/DL (0.55-1.30) H Estimat Glomerular Filtration Rate 28.9 mL/min (>60) Glucose Level 115 MG/DL (74-106) H Calcium Level 8.5 MG/DL (8.5-10.1) Random Vancomycin Level 13.8 ug/mL Plan Problems: (1) Cellulitis and abscess of lower extremity Assessment & Plan: Patient presented admission with bilateral lower extremity edema and cellulitis. Right greater than left. On admission left side open to air with small wounds identified right side with significantly more edema erythema and multiple areas of skin breakdown. No purulent drainage. Serosanguineous oozing from the sites of open wounds. Tender on palpation no fluctuance no abscess identified. Patient states he has had for a few days now and feels is worsening. He has been receiving care with Silvadene in the nursing facility and says feels better improving. Labs reviewed and identified as above. No nausea vomiting fever chills. Will plan for continuation of care and close evaluation while in the hospital. Will need to monitor for potential abscess formation. IV antibiotics as per infectious disease. Keep lower extremities elevated. Patient not compliant with care at all times. Wash lower extremities daily normal saline or soap and water. Apply Silvadene followed by nonadherent dressing and Kerlix wrap. Perform daily and as needed saturation. Will follow with recommendations. Thank you for let me participate in patient's care patient okay but not always compliant with care plan cont abx will monitor wound culture resulted MRSA abx per ID keep legs elevated no abscess noted. cont with current care plan (2) Suspected COVID-19 virus infection Assessment & Plan: 1. Elevation of the right hemidiaphragm. 2. Mild pulmonary vascular congestion. 3. Subsegmental atelectasis versus infiltrate in the medial right lung base. 4. Borderline cardiomegaly. pending Interim development of hazy and reticular infiltrate in the right upper lobe. There is atelectasis and possibly some consolidation at the right lung base, somewhat increased from the prior exam. The left lung and pleural space are clear. The heart size is upper limits of normal. The aorta is tortuous and calcified. Impression: New/increased right upper lobe infiltrate, right basilar atelectasis/consolidation On Abx Cont abx ID input Pulm input noted Kumar Leonard October 23, 2019 19:38
--- NOTE | 2019-10-23 23:39 | Psych Consult Progress Note ---
Psychiatry Progress Note Psychiatry Progress Note Allergies: Coded Allergies: No Known Allergies (Unverified , 08/25/12) Objective Data Height (Feet): 6 Height (Inches): 2.00 Weight (Pounds): 259 Assessment/Plan Status: stable Assessment/Plan: PLAN: 1. Abilify 5 mg in the morning. 2. Ativan p.r.n. 3. Continue to follow and readjust the medications. Jigna Caputo MD October 23, 2019 23:39
--- NOTE | 2019-10-24 03:00 | Progress Note ---
DATE: 10/23/2019 CARDIOLOGY PROGRESS NOTE SUBJECTIVE: Patient is without distress. On multiple medications including antimicrobials. Monitored rhythm, AFib, rate controlled. PHYSICAL EXAMINATION: VITAL SIGNS: Blood pressure 100/54, heart rate 60, respiratory rate 18. LUNGS: Few rhonchi. CARDIAC: Irregularly irregular rhythm. Normal S1, S2. ABDOMEN: Soft. EXTREMITIES: No edema. LABORATORY DATA: White count 8.6, hemoglobin 11. Sodium 144, potassium 5.6, BUN 34, creatinine 2.2. IMPRESSION: 1. Digoxin toxicity, recovered. 2. Acute on chronic renal failure, slightly worse. 3. Atrial fibrillation, rate controlled. 4. Hypertensive heart disease with controlled blood pressure. 5. Aspiration pneumonia. PLAN: 1. Continue cardioembolic prophylaxis. 2. No resumption of amiodarone. 3. No need for digitalis. 4. Maintain beta-vicki and titrate for optimal rate control. 5. Antimicrobials. 6. Respiratory hygiene. 7. Hydration. 8. Close monitoring of volume status and renal function. Anibal Cheatham M.D. DR: NEIDA JOB#: [id number] CC:
--- NOTE | 2019-10-24 09:29 | Discharge Summary ---
DATE OF ADMISSION: 10/15/2019 DATE OF DISCHARGE: 10/23/2019 PERTINENT HISTORY: Patient is an 79-year-old man with recurrent falls, weakness, cough, atrial fibrillation. He has COPD, schizophrenia, and chronic cellulitis of the legs, taken care of at his assisted living facility. He has had multiple falls in several days prior to admission. It was found that he has bradycardia on admission. PERTINENT PHYSICAL FINDINGS: LUNGS: Clear with distant breath sounds. HEART: Rhythm atrial fibrillation. No murmur. ABDOMEN: Obese and soft. EXTREMITIES: Trace to 1+ edema and he has cellulitis of his legs, worse on the right than the left and chronic scaling. COURSE IN THE HOSPITAL: Patient had elevated digoxin level and digitoxicity with bradyarrhythmias. He was monitored on telemetry. Seen by Dr. Cheatham in Cardiology consultation and digoxin was discontinued as was amiodarone. He was given antibiotics for his cellulitis of the legs and wound care. A chest x-ray showed mild bilateral diffuse interstitial prominence nonspecific and his antibiotics covered him for pneumonia. He also had mild pulmonary vascular congestion. His diuretics were adjusted as was his cardiac regimen. COVID-19 test was done. The initial one was apparently inadequate or lost, but the repeat was negative. The patient clinically improved. He did develop some mild prerenal component, which was likely due to use of diuretics and medications were adjusted. On the day of discharge: LUNGS: Clear. HEART: Rhythm is atrial fibrillation with controlled rate. ABDOMEN: Soft. EXTREMITIES: Show scaly healing cellulitis and dermatitis and trace edema. He was discharged back to his custodial facility for further rehabilitation care. FINAL DIAGNOSES: 1. Digoxin toxicity. 2. Bradycardia secondary to digoxin toxicity. 3. Atrial fibrillation chronic. 4. History of recurrent falls, possibly from bradycardia. 5. Chronic diastolic congestive heart failure. 6. Cellulitis of the legs. 7. Chronic obstructive pulmonary disease. 8. Pulmonary infiltrates, likely from CHF. 9. COVID-19 negative. 10. Schizophrenia. 11. 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 12. Healthcare-acquired pneumonia. 13. Cardioembolic prophylaxis with apixaban. DISCHARGE DISPOSITION: On a cardiac diabetic diet. MEDICATIONS: Per the discharge medication list. Noel Weldon M.D. DR: MERT JOB#: [id number] CC:
--- NOTE | 2019-10-24 16:30 | Diagnostic Imaging Report ---
Procedure: XRAY Chest 1v Reason for study: Reason For Exam: SOB Comparison films: 10/21/2019. FINDINGS: A single one view chest is obtained. Vascularity is normal. Streaky right basilar densities likely atelectasis. Cardiac and mediastinal silhouette are within normal limits. CP angles are sharp. The bony thorax appear unremarkable. IMPRESSION: Streaky right basilar atelectasis
== END 2019-10-23 15:35 | DRG 193 ==
LOC: EDBD 10:16 → EMR 10:28 → 2E 12:45 → EDBEDREQ 12:50
DX: J18.9 Pneumonia, unspecified organism (principal); G92 Toxic encephalopathy; I50.43 Acute on chronic combined systolic (congestive) and diastolic (congestive) heart failure; E87.0 Hyperosmolality and hypernatremia; I48.20 Chronic atrial fibrillation, unspecified; L03.116 Cellulitis of left lower limb; L03.115 Cellulitis of right lower limb; G21.19 Other drug induced secondary parkinsonism; N17.9 Acute kidney failure, unspecified; M62.82 Rhabdomyolysis; E44.1 Mild protein-calorie malnutrition; I42.9 Cardiomyopathy, unspecified; Y95 Nosocomial condition; T46.0X5A Adverse effect of cardiac-stimulant glycosides and drugs of similar action, initial encounter; E86.0 Dehydration; I12.9 Hypertensive chronic kidney disease with stage 1 through stage 4 chronic kidney disease, or unspecified chronic kidney disease; N18.3 Chronic kidney disease, stage 3 (moderate); E11.22 Type 2 diabetes mellitus with diabetic chronic kidney disease; I49.5 Sick sinus syndrome; J44.9 Chronic obstructive pulmonary disease, unspecified; F20.9 Schizophrenia, unspecified; R29.6 Repeated falls; Z79.84 Long term (current) use of oral hypoglycemic drugs; Z79.01 Long term (current) use of anticoagulants; I73.9 Peripheral vascular disease, unspecified; E87.5 Hyperkalemia; E11.649 Type 2 diabetes mellitus with hypoglycemia without coma; N31.9 Neuromuscular dysfunction of bladder, unspecified
CPT/HCPCS: 36415; 70450; 71045; 80048; 80053; 80061; 80162; 80202; 81003; 82550; 82553; 82962; 83605; 83690; 83735; 83880; 84443; 84484; 85025; 87040; 87070; 87181; 87205; 87635; 93005; 93306; 96365; 96368; 99291; J1815; J8499